=== PATIENT | female | born 1975 | race Caucasian/White ===

== ENCOUNTER 2017-06-22 22:38 | Emergency (ER) | payer OTHER, MEDICARE ==
[2017-06-22] MEDS ORDERED: BENADRYL 50 MG/ML IV ONE (22:54)
[2017-06-22] MEDS ORDERED: solu-CORTEF 100MG IV ONE (22:55)
[2017-06-22] MEDS ORDERED: MORPHINE SULFATE 4 MG INJ IM ONE (23:05)
[2017-06-22] MEDS ORDERED: Zofran 4 MG/2 ML VIAL IV ONE (23:06)
[2017-06-22] MEDS ORDERED: Zofran 4 MG/2 ML VIAL ONE (23:12)
[2017-06-22] MEDS ORDERED: BENADRYL 50 MG/ML ONE (23:12)
[2017-06-22] MEDS ORDERED: solu-CORTEF 100MG ONE (23:12)
[2017-06-22] MEDS ORDERED: MORPHINE SULFATE 4 MG INJ ONE (23:13)
--- NOTE | 2017-06-22 23:16 | ERPHSYRPT ---
- History of Present Illness Time Seen by Provider: 06/22/17 23:01 Historian: patient Exam Limitations: no limitations Patient Subjective Stated Complaint: chest pain began about 30 min [employer]IAN Triage Nursing Assessment: c/o left side chest pain with nausea, no vomiting Physician History: 42 y/o female with history of SVT with ablation and multiple PEs currently on xarelto comes to the ER with complaints of left sided chest pain that started while at rest 30 mins prior to coming to the ER. Pt describes the pain as stabbing, 8/10, constant and pt has not taken any pain meds. Pt admits to shortness of breath only with exertion. Pt denies any fever, chills, cough, dizziness or palpitations. Timing/Duration: today Activities at Onset: none Quality: stabbing Location: other (left side of chest) Chest Pain Radiation: no radiation Severity of Pain-Max: severe Severity of Pain-Current: severe Modifying Factors: Improves With: nothing Associated Symptoms: No hurts to breathe Nitro Today/Relief: no nitro taken today Aspirin Treatment Today: no aspirin today Allergies/Adverse Reactions: acetaminophen [From Percocet] Allergy (Verified 06/22/17 23:03) diazepam [From Valium] Allergy (Verified 06/22/17 23:03) hydrocodone [From [place]] Allergy (Verified 06/22/17 23:03) Iodinated Contrast- Oral and IV Dye Allergy (Verified 06/22/17 23:03) ketorolac [From Toradol] Allergy (Verified 06/22/17 23:03) oxycodone [From Percocet] Allergy (Verified 06/22/17 23:03) Sulfa (Sulfonamide Antibiotics) Allergy (Verified 06/22/17 23:03) tramadol [From Ultram] Allergy (Verified 06/22/17 23:03) Home Medications: Aripiprazole 10 mg [Abilify 10 MG] 1 tab PO QAM 06/22/17 [History] Atorvastatin Calcium 1 tab PO DAILY 06/22/17 [History] Clonidine 0.2 mg TOP WEEKLY 06/22/17 [History] Lamotrigine [Lamictal] 200 mg PO BID 06/22/17 [History] Levothyroxine Sodium 50 Mcg [Synthroid 50 Mcg] 1 tab PO DAILY 06/22/17 [ History] Rivaroxaban [Xarelto] 1 tab PO QHS 06/22/17 [History] Vortioxetine Hydrobromide [Trintellix] 1 tab PO QAM 06/22/17 [History] Hx Tetanus, Diphtheria Vaccination/Date Given: Yes Hx Influenza Vaccination/Date Given: Yes Immunizations Up to Date: Yes - Review of Systems Constitutional: No Fever, No Chills Eyes: No Symptoms Ears, Nose, & Throat: No Symptoms Respiratory: Dyspnea on Exertion (GARCIA), No Cough, No Dyspnea Cardiac: Chest Pain, No Edema, No Syncope Abdominal/Gastrointestinal: No Abdominal Pain, No Nausea, No Vomiting, No Diarrhea Genitourinary Symptoms: No Dysuria Musculoskeletal: No Back Pain, No Neck Pain Skin: No Rash Neurological: No Dizziness, No Focal Weakness, No Sensory Changes Psychological: No Symptoms Endocrine: No Symptoms All Other Systems: Reviewed and Negative - Past Medical History Pertinent Past Medical History: Yes Cardiac History: Arrhythmia, High Cholesterol Respiratory History: Pulmonary Embolism Endocrine Medical History: Hyperthyroidism, Hypothyroidism Psycho-Social History: Anxiety, Depression Other Medical History: SVT, BLOOD CLOTS, MOOD DISORDER - Past Surgical History Past Surgical History: Yes Cardiac: Other Gastrointestinal: Cholecystectomy Female Surgical History: Hysterectomy Other Surgical History: THYROID RADIATION, ABLATION X 3 - Social History Smoking Status: Never smoker Drug Use: none - Female History Hx Now: No - Nursing Vital Signs Nursing Vital Signs: Initial Vital Signs Temperature 98 F 06/22/17 22:54 Pulse Rate 76 06/22/17 22:54 Respiratory Rate 20 06/22/17 22:54 Blood Pressure 152/79 06/22/17 22:54 O2 Sat by Pulse Oximetry 99 06/22/17 22:54 Pain Scale Pain Intensity 9 - Physical Exam General Appearance: mild distress, alert Eye Exam: PERRL/EOMI, eyes nml inspection Ears, Nose, Throat Exam: normal ENT inspection, moist mucous membranes Neck Exam: normal inspection, non-tender, supple, full range of motion Respiratory Exam: normal breath sounds, lungs clear, No chest tenderness, No respiratory distress Cardiovascular Exam: regular rate/rhythm, normal heart sounds, normal peripheral pulses Gastrointestinal/Abdomen Exam: soft, No tenderness, No mass Back Exam: normal inspection, No CVA tenderness, No vertebral tenderness Extremity Exam: normal inspection, normal range of motion Neurologic Exam: alert, oriented x 3, cooperative, normal mood/affect, sensation nml, No motor deficits Skin Exam: normal color, warm, dry SpO2: 99 Oxygen Delivery: Room Air - Course Nursing assessment & vital signs reviewed: Yes EKG Interpreted by Me: RATE, NORMAL AXIS, NORMAL INTERVALS, NORMAL QRS Ordered Tests: Active Orders 24 hr Category Date Time Status Wire Walker STAT Care 06/22/17 22:54 Active IV Insertion STAT Care 06/22/17 22:53 Active CHEST WITH CONTRAST [CT] Stat Exams 06/22/17 22:53 Taken CBC W DIFF Stat Lab 06/22/17 23:20 Completed CK-Creatinine Phosphokinase Stat Lab 06/22/17 23:20 Completed CMP Stat Lab 06/22/17 23:20 Completed NT PRO BNP Stat Lab 06/22/17 23:20 Completed PROTIME WITH INR Stat Lab 06/22/17 23:20 Completed PTT Stat Lab 06/22/17 23:20 Completed TROPONIN Q3H Lab 06/22/17 23:19 Completed TROPONIN Q3H Lab 06/23/17 02:00 Ordered TROPONIN Q3H Lab 06/23/17 05:00 Ordered TROPONIN Q3H Lab 06/23/17 08:00 Ordered TROPONIN Q3H Lab 06/23/17 11:00 Ordered Medication Summary Discontinued Medications Generic Name Dose Route Start Last Admin Trade Name Freq PRN Reason Stop Dose Admin Diphenhydramine HCl 25 mg 06/22/17 22:54 06/22/17 23:16 Benadryl 50 Mg/Ml IV 06/22/17 22:55 25 mg STAT ONE Administration Diphenhydramine HCl Confirm 06/22/17 23:12 Benadryl 50 Mg/Ml Administered 06/22/17 23:13 Dose 50 mg .ROUTE .STK-MED ONE Diphenhydramine HCl 25 mg 06/23/17 00:58 06/23/17 01:05 Benadryl 50 Mg/Ml IV 06/23/17 00:59 25 mg STAT ONE Administration Diphenhydramine HCl Confirm 06/23/17 00:58 Benadryl 50 Mg/Ml Administered 06/23/17 00:59 Dose 50 mg .ROUTE .STK-MED ONE Hydrocortisone Sodium Succinate 100 mg 06/22/17 22:55 06/22/17 23:16 Solu-Cortef 100mg IV 06/22/17 22:56 100 mg STAT ONE Administration Hydrocortisone Sodium Succinate Confirm 06/22/17 23:12 Solu-Cortef 100mg Administered 06/22/17 23:13 Dose 100 mg .ROUTE .STK-MED ONE Sodium Chloride 1,000 mls @ 999 mls/hr 06/23/17 00:25 06/23/17 01:05 Sodium Chloride 0.9% 1000 Ml IV 06/23/17 01:25 999 mls/hr .Q1H1M STA Administration Sodium Chloride Confirm 06/23/17 00:34 Sodium Chloride 0.9% 1000 Ml Administered 06/23/17 00:35 Dose 1,000 mls @ ud .ROUTE .STK-MED ONE Morphine Sulfate 4 mg 06/22/17 23:05 06/22/17 23:16 Morphine Sulfate 4 Mg Inj IM 06/22/17 23:06 4 mg STAT ONE Administration Morphine Sulfate Confirm 06/22/17 23:13 Morphine Sulfate 4 Mg Inj Administered 06/22/17 23:14 Dose 4 mg .ROUTE .STK-MED ONE Ondansetron HCl 4 mg 06/22/17 23:06 06/22/17 23:16 Zofran 4 Mg/2 Ml Vial IV 06/22/17 23:07 4 mg STAT ONE Administration Ondansetron HCl Confirm 06/22/17 23:12 Zofran 4 Mg/2 Ml Vial Administered 06/22/17 23:13 Dose 4 mg .ROUTE .STK-MED ONE Lab/Rad Data: Laboratory Result Diagrams 06/22/17 23:20 06/22/17 23:20 Laboratory Results 06/22/17 06/22/17 06/22/17 Range/Units 23:20 23:20 23:20 WBC 8.7 (4.0-10.5) K/mm3 RBC 4.91 (4.1-5.4) M/mm3 Hgb 13.3 (12.0-16.0) gm/dl Hct 39.5 (35-47) % MCV 80.4 (78-100) fl MCH 27.1 (26-32) pg MCHC 33.7 (32-36) g/dl RDW 14.4 H (11.5-14.0) % Plt Count 208 (150-450) K/mm3 MPV 11.7 H (6-9.5) fl Gran % 60.3 (36.0-66.0) % Lymphocytes % 28.4 (24.0-44.0) % Monocytes % 8.6 (0.0-12.0) % Eosinophils % 2.5 (0.00-5.0) % Basophils % 0.2 (0.0-0.4) % Basophils # 0.02 (0-0.4) INR 1.06 (0.8-3.0) APTT 28.3 (25.3-37.0) SECONDS Sodium 138 (136-145) mEq/L Potassium 4.0 (3.5-5.1) mEq/L Chloride 102 (98-107) mEq/L Carbon Dioxide 22.2 (21-32) mEq/L Anion Gap 18.1 H (5-15) MEQ/L BUN 9 (9-20) mg/dL Creatinine 0.75 (0.55-1.30) mg/dl Estimated GFR > 60 ML/MIN Glucose 381 H (70-110) MG/DL Calcium 9.1 (8.5-10.1) mg/dL Total Bilirubin 0.20 (0.2-1.0) mg/dL AST 17 (15-37) U/L ALT 26 (12-78) U/L Alkaline Phosphatase 178 H (46-116) U/L Creatine Kinase 77 (26-192) U/L Troponin I (0.000-0.056) ng/ml NT-Pro-B Natriuret Pep 140 H (0-125) pg/ml Serum Total Protein 7.0 (6.4-8.2) gm/dL Albumin 3.7 (3.4-5.0) g/dL 06/22/17 Range/Units 23:19 WBC (4.0-10.5) K/mm3 RBC (4.1-5.4) M/mm3 Hgb (12.0-16.0) gm/dl Hct (35-47) % MCV (78-100) fl MCH (26-32) pg MCHC (32-36) g/dl RDW (11.5-14.0) % Plt Count (150-450) K/mm3 MPV (6-9.5) fl Gran % (36.0-66.0) % Lymphocytes % (24.0-44.0) % Monocytes % (0.0-12.0) % Eosinophils % (0.00-5.0) % Basophils % (0.0-0.4) % Basophils # (0-0.4) INR (0.8-3.0) APTT (25.3-37.0) SECONDS Sodium (136-145) mEq/L Potassium (3.5-5.1) mEq/L Chloride (98-107) mEq/L Carbon Dioxide (21-32) mEq/L Anion Gap (5-15) MEQ/L BUN (9-20) mg/dL Creatinine (0.55-1.30) mg/dl Estimated GFR ML/MIN Glucose (70-110) MG/DL Calcium (8.5-10.1) mg/dL Total Bilirubin (0.2-1.0) mg/dL AST (15-37) U/L ALT (12-78) U/L Alkaline Phosphatase (46-116) U/L Creatine Kinase (26-192) U/L Troponin I < 0.017 (0.000-0.056) ng/ml NT-Pro-B Natriuret Pep (0-125) pg/ml Serum Total Protein (6.4-8.2) gm/dL Albumin (3.4-5.0) g/dL - Progress Progress: improved Progress Note: 06/23/17 01:37 The CTA chest does not show any acute findings. The EKG and troponin are negative. The patient feels better after receiving morphine. The blood glucose was over 300 and the patient was given a liter of fluids. Pt will be d/c home and will F/U with PCP. - Departure Time of Disposition: 01:38 Departure Disposition: Home Clinical Impression: Chest pain Qualifiers: Chest pain type: unspecified Qualified Code(s): R07.9 - Chest pain, unspecified Condition: Stable Critical Care Time: No Referrals: PEDRO WEAVER MD [Primary Care Provider] - Instructions: Chest Pain (DC) Additional Instructions: Follow up with your primary care doctor for any additional recommendations for chest pain.
[2017-06-22 23:24] LABS: BASOPHIL % 0.2 % (0.0-0.4); Basophil (Absolute #) 0.02 (0-0.4); Eosinophil % 2.5 % (0.00-5.0); Eosinophil (Absolute #) 0.22 (0-0.5); Granulocyte Absolute (ANC) 5.23 (1.4-6.9); Granulocytes % 60.3 % (36.0-66.0); Hematocrit 39.5 % (35-47); Hemoglobin 13.3 gm/dl (12.0-16.0); Lymphocyte (Absolute #) 2.47 (1.0-4.6); Lymphocytes % 28.4 % (24.0-44.0); Mean Cell Volume 80.4 fl (78-100); Mean Corpuscular Hemoglobin 27.1 pg (26-32); Mean Corpuscular Hgb Concent. 33.7 g/dl (32-36); Mean Platelet Volume 11.7 fl (6-9.5); Monocyte (Absolute #) 0.75 (0.0-1.3); Monocytes % 8.6 % (0.0-12.0); Platelet Count 208 K/mm3 (150-450); Red Blood Count 4.91 M/mm3 (4.1-5.4); Red Cell Distribution Width 14.4 % (11.5-14.0); White Blood Count 8.7 K/mm3 (4.0-10.5)
[2017-06-22 23:38] LABS: INR 1.06 (0.8-3.0)
[2017-06-22 23:41] LABS: PTT 28.3 SECONDS (25.3-37.0)
[2017-06-23 00:05] LABS: ALBUMIN 3.7 g/dL (3.4-5.0); ALKALINE PHOSPHATASE 178 U/L (46-116); ANION GAP 18.1 MEQ/L (5-15); BLOOD UREA NITROGEN 9 mg/dL (9-20); CHLORIDE 102 mEq/L (98-107); CK-Creatinine Phosphokinase 77 U/L (26-192); Calcium 9.1 mg/dL (8.5-10.1); Carbon Dioxide 22.2 mEq/L (21-32); Creatinine 1 0.75 mg/dl (0.55-1.30); EST GLOMERULAR FILTRATION RATE > 60 ML/MIN; Glucose 381 MG/DL (70-110); NT PRO BNP 140 pg/ml (0-125); SGOT/AST 17 U/L (15-37); SGPT/ALT 26 U/L (12-78); SODIUM 138 mEq/L (136-145)
[2017-06-23] MEDS ORDERED: Sodium Chloride 0.9% 1000 ML 1,000 ML IV STA (00:25)
[2017-06-23] MEDS ORDERED: Sodium Chloride 0.9% 1000 ML 1,000 ML ONE (00:34)
[2017-06-23] MEDS ORDERED: BENADRYL 50 MG/ML ONE (00:58)
[2017-06-23] MEDS ORDERED: BENADRYL 50 MG/ML IV ONE (00:58)
[2017-06-23 01:06] VITALS: BP 137/87
[2017-06-23 01:43] VITALS: PULSE 62; O2SAT 96
--- NOTE | 2017-06-23 08:17 | XRAY ---
Indication: Left-sided chest pain and short of breath. History pulmonary embolus. Multiple contiguous axial images obtained through the chest using 80 cc Isovue 370 contrast and PE protocol. Comparison: None There is satisfactory opacification of the pulmonary arteries to include the lobar and segmental branches. No filling defect or pulmonary embolus. Heart is not enlarged. Aorta is normal in course and caliber. No pathologic mediastinal/hilar lymphadenopathy. Examination of the lung parenchyma demonstrates minimal bilateral dependent atelectasis. No suspicious pulmonary mass, infiltrate, or effusion. Bony thorax intact. Limited upper abdomen demonstrates mild fatty liver, food distended stomach, and cholecystectomy clips. Impression: 1. Negative pulmonary embolus. 2. No acute cardiopulmonary abnormalities. 3. Mild fatty liver. Comment: Preliminary interpretation was made by [facility]. No critical discrepancy. CTDI 23.69
== END 2017-06-23 01:59 | disposition home or self-care (01) ==
LOC: SUPCPDRO 22:38 → ED 22:38
DX: R07.9 Chest pain, unspecified (principal); Z79.01 Long term (current) use of anticoagulants; R06.02 Shortness of breath
CPT/HCPCS: 36000; 36415; 71260; 80053; 82550; 83880; 84484; 85025; 85610; 85730; 93041; 96360; 96365; 96374; 96375; 96376; 99284; J1200; J1720; J2270; J2405

== ENCOUNTER 2017-06-24 21:17 | Emergency (ER) | payer OTHER, MEDICARE ==
[2017-06-24] MEDS ORDERED: Zofran 4 MG/2 ML VIAL IV ONE (21:37)
[2017-06-24] MEDS ORDERED: MORPHINE SULFATE 4 MG INJ IV ONE ×2 (21:37→23:03)
[2017-06-24] MEDS ORDERED: Sodium Chloride 0.9% 1000 ML 1,000 ML IV STA ×2 (21:37→22:31)
[2017-06-24] MEDS ORDERED: Sodium Chloride 0.9% 1000 ML 1,000 ML ONE ×2 (21:41→22:56)
[2017-06-24] MEDS ORDERED: Zofran 4 MG/2 ML VIAL ONE (21:43)
--- NOTE | 2017-06-24 21:43 | ERPHSYRPT ---
- History of Present Illness Time Seen by Provider: 06/24/17 21:30 Source: patient Exam Limitations: no limitations Patient Subjective Stated Complaint: pt states she was feeling bad tonight and checked her blood sugar and was 520 at home. states since then she has been nauseous and began having chest pain 12/07 Triage Nursing Assessment: pt alert and oriented, asnwers questions approp. pt ambulatory with steady gait ntoed. respirations nonalbored with lungs cta. heart rate 70's sinus rhythm on monitor. Physician History: 42 y/o female with history of PE on xarelto and DM Type II comes to the ER after checking her blood glucose which was 520. The patient also started having left sided chest pain, describing the pain as sharp, constant, 12/07, and pt has not taken any pain meds. Pt was seen in the ER for similar chest pain and had a negative chest CT. pt has not had any changes to her insulin regimen. Pt does admit to having polyuria and polydypsia. No fever, chills, cough, congestion or wheezing. Timing/Duration: today Severity: moderate Associated Symptoms: nausea Allergies/Adverse Reactions: acetaminophen [From Percocet] Allergy (Verified 06/24/17 21:53) diazepam [From Valium] Allergy (Verified 06/24/17 21:53) hydrocodone [From [place]] Allergy (Verified 06/24/17 21:53) Iodinated Contrast- Oral and IV Dye Allergy (Verified 06/24/17 21:53) ketorolac [From Toradol] Allergy (Verified 06/24/17 21:53) oxycodone [From Percocet] Allergy (Verified 06/24/17 21:53) Sulfa (Sulfonamide Antibiotics) Allergy (Verified 06/24/17 21:53) tramadol [From Ultram] Allergy (Verified 06/24/17 21:53) Home Medications: Aripiprazole 10 mg [Abilify 10 MG] 1 tab PO QAM 06/22/17 [History] Atorvastatin Calcium 1 tab PO DAILY 06/22/17 [History] Clonidine 0.2 mg TOP WEEKLY 06/22/17 [History] Lamotrigine [Lamictal] 200 mg PO BID 06/22/17 [History] Levothyroxine Sodium 50 Mcg [Synthroid 50 Mcg] 1 tab PO DAILY 06/22/17 [ History] Rivaroxaban [Xarelto] 1 tab PO QHS 06/22/17 [History] Vortioxetine Hydrobromide [Trintellix] 1 tab PO QAM 06/22/17 [History] Hx Tetanus, Diphtheria Vaccination/Date Given: Yes Hx Influenza Vaccination/Date Given: Yes Hx Pneumococcal Vaccination/Date Given: No Immunizations Up to Date: Yes - Review of Systems Constitutional: Weakness, No Fever, No Chills Eyes: No Symptoms Ears, Nose, & Throat: No Symptoms Respiratory: No Cough, No Dyspnea Cardiac: Chest Pain, No Edema, No Syncope Abdominal/Gastrointestinal: No Abdominal Pain, No Nausea, No Vomiting, No Diarrhea Genitourinary Symptoms: Frequency, No Dysuria Musculoskeletal: No Back Pain, No Neck Pain Skin: No Rash Neurological: No Dizziness, No Focal Weakness, No Sensory Changes Psychological: No Symptoms Endocrine: No Symptoms All Other Systems: Reviewed and Negative - Past Medical History Pertinent Past Medical History: Yes Cardiac History: Arrhythmia, High Cholesterol Respiratory History: Pulmonary Embolism Endocrine Medical History: Hyperthyroidism, Hypothyroidism Psycho-Social History: Anxiety, Depression Other Medical History: SVT, BLOOD CLOTS, MOOD DISORDER - Past Surgical History Past Surgical History: Yes Cardiac: Other Gastrointestinal: Cholecystectomy Female Surgical History: Hysterectomy Other Surgical History: THYROID RADIATION, ABLATION X 3 - Social History Smoking Status: Never smoker Exposure to second hand smoke: No Drug Use: none Patient Lives Alone: No - Female History Hx Last Menstrual Period: hyster Hx Now: No - Nursing Vital Signs Nursing Vital Signs: Initial Vital Signs Temperature 97.2 F 06/24/17 21:26 Pulse Rate 63 06/24/17 21:26 Respiratory Rate 18 06/24/17 21:26 Blood Pressure 193/83 06/24/17 21:26 O2 Sat by Pulse Oximetry 100 06/24/17 21:26 Pain Scale Pain Intensity 8 - Physical Exam General Appearance: no apparent distress, alert Eye Exam: PERRL/EOMI, eyes nml inspection Ears, Nose, Throat Exam: normal ENT inspection, TMs normal, pharynx normal, moist mucous membranes Neck Exam: normal inspection, non-tender, supple, full range of motion Respiratory Exam: normal breath sounds, lungs clear, No chest tenderness, No respiratory distress Cardiovascular Exam: regular rate/rhythm, normal heart sounds, normal peripheral pulses Gastrointestinal/Abdomen Exam: soft, normal bowel sounds, No tenderness, No mass Back Exam: normal inspection, normal range of motion, No CVA tenderness, No vertebral tenderness Extremity Exam: normal inspection, normal range of motion, pelvis stable Neurologic Exam: alert, oriented x 3, cooperative, normal mood/affect, nml cerebellar function, nml station & gait, sensation nml, No motor deficits Skin Exam: normal color, warm, dry, No rash Lymphatic Exam: No adenopathy SpO2: 100 Oxygen Delivery: Room Air - Course Nursing assessment & vital signs reviewed: Yes EKG Interpreted by Me: RATE, NORMAL AXIS, NORMAL INTERVALS, NORMAL QRS, NORMAL ST-T Ordered Tests: Active Orders 24 hr Category Date Time Status IV Insertion STAT Care 06/24/17 21:37 Active CBC W DIFF Stat Lab 06/24/17 21:48 Completed CK-Creatinine Phosphokinase Stat Lab 06/24/17 21:48 Completed CMP Stat Lab 06/24/17 21:48 Completed TROPONIN Q3H Lab 06/24/17 21:48 Completed TROPONIN Q3H Lab 06/25/17 00:45 Ordered TROPONIN Q3H Lab 06/25/17 03:45 Ordered TROPONIN Q3H Lab 06/25/17 06:45 Ordered TROPONIN Q3H Lab 06/25/17 09:45 Ordered UA W/ MICROSCOPIC Stat Lab 06/24/17 22:47 Completed VBG [VENOUS BLOOD GAS] Stat Lab 06/24/17 21:43 Completed Medication Summary Discontinued Medications Generic Name Dose Route Start Last Admin Trade Name Freq PRN Reason Stop Dose Admin Diphenhydramine HCl 25 mg 06/24/17 23:34 06/24/17 23:38 Benadryl 50 Mg/Ml IV 06/24/17 23:35 25 mg STAT ONE Administration Diphenhydramine HCl Confirm 06/24/17 23:36 Benadryl 50 Mg/Ml Administered 06/24/17 23:37 Dose 50 mg .ROUTE .STK-MED ONE Sodium Chloride 1,000 mls @ 999 mls/hr 06/24/17 21:37 06/24/17 21:41 Sodium Chloride 0.9% 1000 Ml IV 06/24/17 22:37 999 mls/hr .Q1H1M STA Administration Sodium Chloride Confirm 06/24/17 21:41 Sodium Chloride 0.9% 1000 Ml Administered 06/24/17 21:42 Dose 1,000 mls @ ud .ROUTE .STK-MED ONE Sodium Chloride 1,000 mls @ 999 mls/hr 06/24/17 22:31 06/24/17 22:57 Sodium Chloride 0.9% 1000 Ml IV 06/24/17 23:31 999 mls/hr .Q1H1M STA Administration Sodium Chloride Confirm 06/24/17 22:56 Sodium Chloride 0.9% 1000 Ml Administered 06/24/17 22:57 Dose 1,000 mls @ ud .ROUTE .STK-MED ONE Insulin Human Regular 8 unit 06/24/17 22:31 06/24/17 22:57 Novolin R IV 06/24/17 22:32 8 unit STAT ONE Administration Insulin Human Regular Confirm 06/24/17 22:56 Novolin R Administered 06/24/17 22:57 Dose 8 unit .ROUTE .STK-MED ONE Morphine Sulfate 4 mg 06/24/17 21:37 06/24/17 21:45 Morphine Sulfate 4 Mg Inj IV 06/24/17 21:38 4 mg STAT ONE Administration Morphine Sulfate Confirm 06/24/17 21:44 Morphine Sulfate 4 Mg Inj Administered 06/24/17 21:45 Dose 4 mg .ROUTE .STK-MED ONE Morphine Sulfate 4 mg 06/24/17 23:03 06/24/17 23:05 Morphine Sulfate 4 Mg Inj IV 06/24/17 23:04 4 mg STAT ONE Administration Morphine Sulfate Confirm 06/24/17 23:04 Morphine Sulfate 4 Mg Inj Administered 06/24/17 23:05 Dose 4 mg .ROUTE .STK-MED ONE Ondansetron HCl 4 mg 06/24/17 21:37 06/24/17 21:46 Zofran 4 Mg/2 Ml Vial IV 06/24/17 21:38 4 mg STAT ONE Administration Ondansetron HCl Confirm 06/24/17 21:43 Zofran 4 Mg/2 Ml Vial Administered 06/24/17 21:44 Dose 4 mg .ROUTE .STK-MED ONE Lab/Rad Data: Laboratory Result Diagrams 06/24/17 21:48 06/24/17 21:48 Laboratory Results 02/25/18 02/25/18 02/25/18 Range/Units 22:47 21:48 21:48 WBC (4.0-10.5) K/mm3 RBC (4.1-5.4) M/mm3 Hgb (12.0-16.0) gm/dl Hct (35-47) % MCV (78-100) fl MCH (26-32) pg MCHC (32-36) g/dl RDW (11.5-14.0) % Plt Count (150-450) K/mm3 MPV (6-9.5) fl Gran % (36.0-66.0) % Lymphocytes % (24.0-44.0) % Monocytes % (0.0-12.0) % Eosinophils % (0.00-5.0) % Basophils % (0.0-0.4) % Basophils # (0-0.4) VBG pH (7.32-7.42) VBG pCO2 at Pat Temp (42-55) mm/Hg VBG pO2 at Pat Temp (25-40) mm/Hg VBG HCO3 (22-28) meq/L VBG O2 Sat (Mike) (95-100) VBG Base Excess (-2.0-2.0) VBG Hemoglobin VBG Carboxyhemoglobin (0.0-6.9) % T HGB POC Potassium (3.5-5.1) Sodium 138 (136-145) mEq/L Potassium 4.1 (3.5-5.1) mEq/L Chloride 99 (98-107) mEq/L Carbon Dioxide 26.3 (21-32) mEq/L Anion Gap 17.2 H (5-15) MEQ/L BUN 9 (9-20) mg/dL Creatinine 0.81 (0.55-1.30) mg/dl Estimated GFR > 60 ML/MIN Glucose 469 H (70-110) MG/DL Calcium 9.2 (8.5-10.1) mg/dL Total Bilirubin 0.20 (0.2-1.0) mg/dL AST 16 (15-37) U/L ALT 32 (12-78) U/L Alkaline Phosphatase 204 H (46-116) U/L Creatine Kinase 82 (26-192) U/L Troponin I < 0.017 (0.000-0.056) ng/ml Serum Total Protein 7.5 (6.4-8.2) gm/dL Albumin 4.2 (3.4-5.0) g/dL Ur Collection Type VOID Urine Color LT.YELLOW (YELLOW) Urine Appearance CLEAR (CLEAR) Urine pH 7.0 (5-6) Ur Specific [place] 1.010 (1.005-1.025) Urine Protein NEGATIVE (Negative) Urine Ketones NEGATIVE (NEGATIVE) Urine Blood TRACE NON-HEM (0-5) Robby/ul Urine Nitrite NEGATIVE (NEGATIVE) Urine Bilirubin NEGATIVE (NEGATIVE) Urine Urobilinogen NORMAL (0-1) mg/dL Ur Leukocyte Esterase NEGATIVE (NEGATIVE) Urine Microscopic RBC 0-2 (0-2) /HPF Urine Microscopic WBC 0-2 (0-5) /HPF Ur Epithelial Cells FEW (FEW) /HPF Urine Bacteria FEW (NEGATIVE) /HPF Urine Culture Reflexed NO (NO) Urine Glucose 1000 (NEGATIVE) mg/dL Specimen Received 06/24/17 2300 06/24/17 06/24/17 Range/Units 21:48 21:43 WBC 8.5 (4.0-10.5) K/mm3 RBC 5.13 (4.1-5.4) M/mm3 Hgb 13.9 (12.0-16.0) gm/dl Hct 41.8 (35-47) % MCV 81.5 (78-100) fl MCH 27.1 (26-32) pg MCHC 33.3 (32-36) g/dl RDW 14.3 H (11.5-14.0) % Plt Count 194 (150-450) K/mm3 MPV 12.0 H (6-9.5) fl Gran % 57.9 (36.0-66.0) % Lymphocytes % 31.1 (24.0-44.0) % Monocytes % 8.8 (0.0-12.0) % Eosinophils % 2.0 (0.00-5.0) % Basophils % 0.2 (0.0-0.4) % Basophils # 0.02 (0-0.4) VBG pH 7.36 (7.32-7.42) VBG pCO2 at Pat Temp 48 (42-55) mm/Hg VBG pO2 at Pat Temp 25 (25-40) mm/Hg VBG HCO3 27.1 (22-28) meq/L VBG O2 Sat (Mike) 54.3 L (95-100) VBG Base Excess 0.9 (-2.0-2.0) VBG Hemoglobin 14.7 VBG Carboxyhemoglobin 2.4 (0.0-6.9) % T HGB POC Potassium 4.1 (3.5-5.1) Sodium (136-145) mEq/L Potassium (3.5-5.1) mEq/L Chloride (98-107) mEq/L Carbon Dioxide (21-32) mEq/L Anion Gap (5-15) MEQ/L BUN (9-20) mg/dL Creatinine (0.55-1.30) mg/dl Estimated GFR ML/MIN Glucose (70-110) MG/DL Calcium (8.5-10.1) mg/dL Total Bilirubin (0.2-1.0) mg/dL AST (15-37) U/L ALT (12-78) U/L Alkaline Phosphatase (46-116) U/L Creatine Kinase (26-192) U/L Troponin I (0.000-0.056) ng/ml Serum Total Protein (6.4-8.2) gm/dL Albumin (3.4-5.0) g/dL Ur Collection Type Urine Color (YELLOW) Urine Appearance (CLEAR) Urine pH (5-6) Ur Specific [place] (1.005-1.025) Urine Protein (Negative) Urine Ketones (NEGATIVE) Urine Blood (0-5) Robby/ul Urine Nitrite (NEGATIVE) Urine Bilirubin (NEGATIVE) Urine Urobilinogen (0-1) mg/dL Ur Leukocyte Esterase (NEGATIVE) Urine Microscopic RBC (0-2) /HPF Urine Microscopic WBC (0-5) /HPF Ur Epithelial Cells (FEW) /HPF Urine Bacteria (NEGATIVE) /HPF Urine Culture Reflexed (NO) Urine Glucose (NEGATIVE) mg/dL Specimen Received - Progress Progress: improved Progress Note: 06/24/17 23:44 Pt has a blood glucose of 492 and was given 2 liters of NS fluids as well as 8 units of regular insulin. The patient is not in DKA and the repeat FS is 242. Pt will be d/c home with advise to F/U with PCP - Departure Time of Disposition: 23:45 Departure Disposition: Home Clinical Impression: Hyperglycemia due to type 2 diabetes mellitus Qualifiers: Diabetes mellitus keno terminal operator insulin use: with keno terminal operator use Qualified Code(s): E11.65 - Type 2 diabetes mellitus with hyperglycemia; Z79.4 - [facility] (current ) use of insulin; Z79.4 - keno terminal operator (current) use of insulin; Z79.4 - [facility] (current) use of insulin; Z79.4 - [facility] (current) use of insulin Condition: Stable Critical Care Time: No Referrals: PEDRO WEAVER MD [Primary Care Provider] - Instructions: Hyperglycemia, Adult (DC) Additional Instructions: Follow up with your primary care doctor in the next few days for any additional recommendations.
[2017-06-24] MEDS ORDERED: MORPHINE SULFATE 4 MG INJ ONE ×2 (21:44→23:04)
[2017-06-24 21:48] LABS: VBG BASE EXCESS 0.9 (-2.0-2.0); VBG CARBOXYHEMOGLOBIN 2.4 % T HGB (0.0-6.9); VBG HCO3- 27.1 meq/L (22-28); VBG HEMOGLOBIN 14.7; VBG O2 SATURATION 54.3 (95-100); VBG POTASSIUM 4.1 (3.5-5.1); VBG pH 7.36 (7.32-7.42)
[2017-06-24 21:53] LABS: BASOPHIL % 0.2 % (0.0-0.4); Basophil (Absolute #) 0.02 (0-0.4); Eosinophil (Absolute #) 0.17 (0-0.5); Granulocytes % 57.9 % (36.0-66.0); Hematocrit 41.8 % (35-47); Hemoglobin 13.9 gm/dl (12.0-16.0); Lymphocyte (Absolute #) 2.64 (1.0-4.6); Lymphocytes % 31.1 % (24.0-44.0); Mean Cell Volume 81.5 fl (78-100); Mean Corpuscular Hemoglobin 27.1 pg (26-32); Mean Corpuscular Hgb Concent. 33.3 g/dl (32-36); Monocyte (Absolute #) 0.75 (0.0-1.3); Monocytes % 8.8 % (0.0-12.0); Platelet Count 194 K/mm3 (150-450); Red Blood Count 5.13 M/mm3 (4.1-5.4); Red Cell Distribution Width 14.3 % (11.5-14.0); White Blood Count 8.5 K/mm3 (4.0-10.5)
[2017-06-24 22:20] LABS: ALBUMIN 4.2 g/dL (3.4-5.0); ALKALINE PHOSPHATASE 204 U/L (46-116); ANION GAP 17.2 MEQ/L (5-15); BLOOD UREA NITROGEN 9 mg/dL (9-20); CHLORIDE 99 mEq/L (98-107); CK-Creatinine Phosphokinase 82 U/L (26-192); Calcium 9.2 mg/dL (8.5-10.1); Carbon Dioxide 26.3 mEq/L (21-32); Creatinine 1 0.81 mg/dl (0.55-1.30); Glucose 469 MG/DL (70-110); Potassium 4.1 mEq/L (3.5-5.1); SGOT/AST 16 U/L (15-37); SGPT/ALT 32 U/L (12-78); SODIUM 138 mEq/L (136-145); Total Protein 7.5 gm/dL (6.4-8.2)
[2017-06-24] MEDS ORDERED: NovoLIN R IV ONE (22:31)
[2017-06-24] MEDS ORDERED: NovoLIN R ONE (22:56)
[2017-06-24 23:27] LABS: Appearance CLEAR (CLEAR); Bilirubin NEGATIVE (NEGATIVE); Blood TRACE NON-HEM Ery/ul (0-5); Glucose 1000 mg/dL (NEGATIVE); Ketones NEGATIVE (NEGATIVE); Leukocyte Esterase NEGATIVE (NEGATIVE); Nitrite NEGATIVE (NEGATIVE); Protein,Urine Dip NEGATIVE (Negative); Urobilinogen NORMAL mg/dL (0-1)
[2017-06-24 23:28] LABS: Bacteria FEW /HPF (NEGATIVE); Epithelial Cells FEW /HPF (FEW); WBC 0-2 /HPF (0-5)
[2017-06-24] MEDS ORDERED: BENADRYL 50 MG/ML IV ONE (23:34)
[2017-06-24] MEDS ORDERED: BENADRYL 50 MG/ML ONE (23:36)
[2017-06-24 23:58] VITALS: BP 128/63; PULSE 60; O2SAT 98
== END 2017-06-25 00:05 | disposition home or self-care (01) ==
LOC: ED 21:17
DX: E11.65 Type 2 diabetes mellitus with hyperglycemia (principal); Z79.4 Long term (current) use of insulin; R07.9 Chest pain, unspecified; Z79.899 Other long term (current) drug therapy; Z86.711 Personal history of pulmonary embolism; Z79.01 Long term (current) use of anticoagulants; R35.8 Other polyuria; R63.1 Polydipsia
CPT/HCPCS: 36000; 36415; 80053; 81000; 82550; 82805; 82962; 84484; 85025; 93005; 96360; 96361; 96374; 96375; 96376; 99284; J1200; J2270; J2405; A9270-GY

== ENCOUNTER 2017-07-06 20:35 | Observation (INO) | payer MEDICARE ==
[2017-07-06] MEDS ORDERED: BABY ASPIRIN 81 MG CHEW PO ONE (21:25)
[2017-07-06] MEDS ORDERED: Nitrostat 0.4 MG (ED) SL ONE ×4 (21:25→23:59)
[2017-07-06] MEDS ORDERED: Sodium Chloride 0.9% 1000 ML 1,000 ML IV STA (21:25)
[2017-07-06] MEDS ORDERED: BABY ASPIRIN 81 MG CHEW ONE (21:33)
[2017-07-06] MEDS ORDERED: Sodium Chloride 0.9% 1000 ML 1,000 ML ONE (21:34)
[2017-07-06 21:35] LABS: BASOPHIL % 0.2 % (0.0-0.4); Basophil (Absolute #) 0.02 (0-0.4); Eosinophil % 1.5 % (0.00-5.0); Eosinophil (Absolute #) 0.16 (0-0.5); Granulocyte Absolute (ANC) 7.14 (1.4-6.9); Granulocytes % 66.6 % (36.0-66.0); Hematocrit 42.2 % (35-47); Hemoglobin 14.1 gm/dl (12.0-16.0); Lymphocyte (Absolute #) 2.64 (1.0-4.6); Lymphocytes % 24.6 % (24.0-44.0); Mean Cell Volume 79.9 fl (78-100); Mean Corpuscular Hemoglobin 26.7 pg (26-32); Mean Corpuscular Hgb Concent. 33.4 g/dl (32-36); Mean Platelet Volume 12.2 fl (6-9.5); Monocyte (Absolute #) 0.76 (0.0-1.3); Monocytes % 7.1 % (0.0-12.0); Platelet Count 236 K/mm3 (150-450); Red Blood Count 5.28 M/mm3 (4.1-5.4); Red Cell Distribution Width 14.3 % (11.5-14.0); White Blood Count 10.7 K/mm3 (4.0-10.5)
[2017-07-06 22:10] LABS: INR 1.02 (0.8-3.0)
[2017-07-06 22:16] LABS: ALBUMIN 4.7 g/dl (3.5-5.0); ALKALINE PHOSPHATASE 189 U/L (38-126); ANION GAP 22.2 MEQ/L (5-15); BLOOD UREA NITROGEN 8 mg/dl (7-17); CHLORIDE 96 mEq/L (98-107); Calcium 9.6 mg/dL (8.4-10.2); Carbon Dioxide 22 mmol/L (22-30); Creatinine 1 0.54 mg/dl (0.52-1.04); Glucose 459 mg/dL (74-106); Potassium 4.4 mmol/L (3.5-5.1); SGOT/AST 48 U/L (14-36); SGPT/ALT 37 U/L (0-35); SODIUM 135 mmol/L (137-145); Total Protein 7.8 mg/dl (6.3-8.2)
[2017-07-06 22:18] LABS: D-DIMER QUANTITATION < 215 ng/mL (0-500)
[2017-07-06 22:25] LABS: NT PRO BNP 53.9 pg/ml (0-450)
[2017-07-06 22:27] LABS: Appearance CLEAR (CLEAR); Bilirubin NEGATIVE (NEGATIVE); Blood NEGATIVE Ery/ul (0-5); Glucose 250 mg/dL (NEGATIVE); Ketones NEGATIVE (NEGATIVE); Leukocyte Esterase NEGATIVE (NEGATIVE); Nitrite NEGATIVE (NEGATIVE); Protein,Urine Dip NEGATIVE (Negative); Urobilinogen NORMAL mg/dL (0-1)
[2017-07-06] MEDS ORDERED: Zofran 4 MG/2 ML VIAL IV ONE (22:54)
[2017-07-06] MEDS ORDERED: Zofran 4 MG/2 ML VIAL ONE (23:01)
--- NOTE | 2017-07-06 23:53 | XRAY ---
Indication: Chest pain. Comparison: None PA/lateral chest demonstrates normal heart and lungs. Bony thorax intact with minimal scoliosis.
[2017-07-06] MEDS ORDERED: MORPHINE SULFATE 4 MG INJ IV ONE (23:59)
[2017-07-06] MEDS ORDERED: NITRO-BID 2% UD PACKETS TOP ONE (23:59)
[2017-07-07] MEDS ORDERED: MORPHINE SULFATE 4 MG INJ ONE (00:16)
[2017-07-07] MEDS ORDERED: NITRO-BID 2% UD PACKETS ONE (00:16)
--- NOTE | 2017-07-07 00:26 | ERPHSYRPT ---
- History of Present Illness Time Seen by Provider: 07/06/17 22:00 Historian: patient Exam Limitations: clinical condition Patient Subjective Stated Complaint: Hyperglycemia x1 week, worse today. Also complains of chest pain beginning 1 hour ago. Triage Nursing Assessment: Pt presents to the ED with complaints of hyperglycemia x1 week. Pt states she has had complications with hyperglycemia x1 month, with improvement prior to 1 week ago. Pt states her meter read 580 prior to dinner time. Pt states reading just prior to arrival was "High." No distress noted. Skin PWD. Physician History: PATIENT HISTORY OF CORONARY ARTERY DISEASE, NORMAL CARDIAC CATHERIZATION 1 YEAR AGO, TYPE 2 DIABETES, HISTORY OR PULMONARY EMBOLISM COMPLAINS OF INTERMITTENT CHEST PAINS X 3 DAYS. HAS ASSOCIATED ELEVATED BLOOD GLUCOSE IN THE 400'S FOR THE PAST WEEK. HAS OCCASIONAL RADIATION OF PAIN TO HER BACK, DENIES DYSPNEA, DIAPHORESIS OR PALPITATIONS. Timing/Duration: today Activities at Onset: none Quality: sharpness, stabbing Location: central Chest Pain Radiation: back Severity of Pain-Max: moderate Severity of Pain-Current: mild Modifying Factors: Improves With: nothing, other (ELEVATED BLOOD GLUCOSE) Associated Symptoms: nausea Prior Chest Pain/Cardiac Workup: cardiac cath Nitro Today/Relief: no nitro taken today Aspirin Treatment Today: no aspirin today Allergies/Adverse Reactions: acetaminophen [From Percocet] Allergy (Verified 06/24/17 21:53) diazepam [From Valium] Allergy (Verified 06/24/17 21:53) hydrocodone [From [place]] Allergy (Verified 06/24/17 21:53) Iodinated Contrast- Oral and IV Dye Allergy (Verified 06/24/17 21:53) ketorolac [From Toradol] Allergy (Verified 06/24/17 21:53) oxycodone [From Percocet] Allergy (Verified 06/24/17 21:53) Sulfa (Sulfonamide Antibiotics) Allergy (Verified 06/24/17 21:53) tramadol [From Ultram] Allergy (Verified 06/24/17 21:53) Home Medications: Aripiprazole 10 mg [Abilify 10 MG] 1 tab PO QAM 06/22/17 [History] Atorvastatin Calcium 1 tab PO DAILY 06/22/17 [History] Clonidine 0.2 mg TOP WEEKLY 06/22/17 [History] Lamotrigine [Lamictal] 200 mg PO BID 06/22/17 [History] Levothyroxine Sodium 50 Mcg [Synthroid 50 Mcg] 1 tab PO DAILY 06/22/17 [ History] Rivaroxaban [Xarelto] 1 tab PO QHS 06/22/17 [History] Vortioxetine Hydrobromide [Trintellix] 1 tab PO QAM 06/22/17 [History] Hx Tetanus, Diphtheria Vaccination/Date Given: Yes Hx Influenza Vaccination/Date Given: Yes Hx Pneumococcal Vaccination/Date Given: Yes Immunizations Up to Date: Yes - Review of Systems Constitutional: No Symptoms, No Fever, No Chills Eyes: No Symptoms Ears, Nose, & Throat: No Symptoms Respiratory: No Cough, No Dyspnea Cardiac: Chest Pain, No Edema, No Syncope Abdominal/Gastrointestinal: Nausea, No Abdominal Pain, No Vomiting, No Diarrhea Genitourinary Symptoms: No Symptoms, No Dysuria Musculoskeletal: No Symptoms, No Back Pain, No Neck Pain Skin: No Rash Neurological: No Dizziness, No Focal Weakness, No Sensory Changes Psychological: No Symptoms Endocrine: No Symptoms All Other Systems: Reviewed and Negative - Past Medical History Pertinent Past Medical History: Yes Cardiac History: Arrhythmia, High Cholesterol Respiratory History: Pulmonary Embolism Endocrine Medical History: Hyperthyroidism, Hypothyroidism Psycho-Social History: Anxiety, Depression Other Medical History: SVT, BLOOD CLOTS, MOOD DISORDER - Past Surgical History Past Surgical History: Yes Cardiac: Other Gastrointestinal: Cholecystectomy Female Surgical History: Hysterectomy Other Surgical History: THYROID RADIATION, ABLATION X 3 - Social History Smoking Status: Never smoker Exposure to second hand smoke: No Drug Use: none Patient Lives Alone: No - Female History Hx Now: No - Nursing Vital Signs Nursing Vital Signs: Initial Vital Signs Temperature 98.1 F 07/06/17 20:57 Pulse Rate 84 07/06/17 20:57 Respiratory Rate 16 07/06/17 20:57 Blood Pressure 166/94 07/06/17 20:57 O2 Sat by Pulse Oximetry 100 07/06/17 20:57 Pain Scale Pain Intensity 6 - Physical Exam General Appearance: no apparent distress, alert Eye Exam: PERRL/EOMI, eyes nml inspection Ears, Nose, Throat Exam: normal ENT inspection, moist mucous membranes Neck Exam: normal inspection, non-tender, supple, full range of motion Respiratory Exam: normal breath sounds, lungs clear, No respiratory distress Cardiovascular Exam: regular rate/rhythm, normal heart sounds Gastrointestinal/Abdomen Exam: soft, normal bowel sounds (NONTENDER), No tenderness, No mass Back Exam: normal inspection, No CVA tenderness, No vertebral tenderness Extremity Exam: normal inspection, normal range of motion Neurologic Exam: alert, oriented x 3, cooperative, normal mood/affect, sensation nml, No motor deficits Skin Exam: normal color, warm, dry SpO2 Interpretation: normal SpO2: 100 Oxygen Delivery: Room Air - Course EKG Interpreted by Me: RATE, Sinus Rhythm, NORMAL AXIS, Other (FLAT LATERAL ST SEGMENT CHANGES) - Radiology Exams Chest X-ray Interpretation: Interpreted by me, Negative Ordered Tests: Active Orders 24 hr Category Date Time Status Up With Assistance ROUTINE Activity 07/07/17 01:08 Active Accucheck ACHS Care 07/07/17 01:08 Active Call Admit Doctor for Orders ROUTINE Care 07/07/17 01:08 Active Drier Helper STAT Care 07/06/17 21:25 Active Code Status Order ROUTINE Care 07/07/17 01:08 Active EKG-ER Only STAT Care 07/06/17 21:25 Completed IV Care Q6H Care 07/07/17 01:08 Active IV Insertion STAT Care 07/06/17 21:25 Completed Implement Chest Pain Pathway ROUTINE Care 07/07/17 01:08 Active Oxygen-ED Only NASAL CANNULA 2 lpm Care 07/06/17 21:[address] in Observation ROUTINE Care 07/07/17 01:08 Active Pulse Oximetry (ED) STAT Care 07/06/17 21:25 Active Nancy Delarosa ROUTINE Care 07/07/17 01:08 Active Telemetry ROUTINE Care 07/07/17 01:08 Active Vital Signs Q4H Care 07/07/17 01:08 Active Weight,Daily 0600 Care 07/07/17 01:08 Active 1800 Calorie ADA Diet 07/07/17 Breakfast Active Cardiac Diet Diet 07/07/17 Breakfast Active CHEST 2 VIEWS (PA AND LAT) Stat Exams 07/06/17 21:25 Completed CBC W DIFF Stat Lab 07/06/17 21:30 Completed CMP Stat Lab 07/06/17 21:30 Completed D-DIMER QUANTITATION Stat Lab 07/06/17 21:30 Completed LIPID PROFILE AM.LAB Lab 07/07/17 04:00 Ordered NT PRO BNP Stat Lab 07/06/17 21:30 Completed PROTIME WITH INR Stat Lab 07/06/17 21:30 Completed TROPONIN Q3H Lab 07/06/17 21:30 Completed TROPONIN Q3H Lab 07/07/17 00:47 Completed TROPONIN Q3H Lab 07/07/17 03:30 Ordered TROPONIN Q3H Lab 07/07/17 06:30 Ordered TROPONIN Q3H Lab 07/07/17 09:30 Ordered UA W/RFX UR CULTURE Stat Lab 07/06/17 21:27 Completed Pulse Oximetry .continuos RT 07/07/17 01:08 Completed Transfer Order Routine Transfer 07/07/17 Completed Medication Summary Generic Name Dose Route Start Last Admin Trade Name Freq PRN Reason Stop Dose Admin Acetaminophen 650 mg 07/07/17 01:08 Tylenol 325 Mg PO 08/06/17 01:07 Q4H PRN PRN PAIN AND/OR FEVER Al Hydrox/Mg Hydrox/Simethicone 30 ml 07/07/17 01:08 Maalox Es 30 Ml Unit Dose PO 08/06/17 01:07 Q4H PRN PRN INDIGESTION Aripiprazole 10 mg 07/07/17 22:00 Abilify 10 Mg PO 08/06/17 21:59 HS HARINDER Aspirin 325 mg 07/07/17 10:00 Ecotrin 325 Mg PO 08/06/17 09:59 DAILY HARINDER Sodium Chloride 500 mls @ 50 mls/hr 07/07/17 01:08 07/07/17 01:32 Sodium Chloride 0.9% 500 Ml IV 08/06/17 01:07 50 mls/hr .Q10H HARINDER Administration Insulin Aspart 0 unit 07/07/17 01:08 Novolog Insulin SQ 08/06/17 01:07 PRN PRN HYPERGLYCEMIA Lamotrigine 200 mg 07/07/17 10:00 Lamictal 100mg Tablet PO 08/06/17 09:59 BID HARINDER Levothyroxine Sodium 50 mcg 07/07/17 10:00 Synthroid 50 Mcg PO 08/06/17 09:59 QAM HARINDER Magnesium Hydroxide 30 - 60 ml 07/07/17 01:08 Milk Of Magnesia 30 Ml PO 08/06/17 01:07 QDP PRN CONSTIPATION Morphine Sulfate 2 mg 07/07/17 01:08 Morphine Sulfate 2 Mg Inj IV 07/12/17 01:07 .Q15MIN PRN PRN CHEST PAIN Nitroglycerin 0.4 mg 07/07/17 01:08 Nitrostat 0.4 Mg Tablet SL 08/06/17 01:07 .Q5MIN PRN CHEST PAIN Nitroglycerin 1 gm 07/07/17 06:00 Nitro-Bid 2% Ud Packets TOP 08/06/17 05:59 Q8HT HARINDER Ondansetron HCl 4 mg 07/07/17 01:08 Zofran 4 Mg/2 Ml Vial IV 08/06/17 01:07 Q4H PRN PRN NAUSEA/VOMITING Senna/Docusate Sodium 2 udtab 07/07/17 01:08 Senokot-S Tablet PO 08/06/17 01:07 BID PRN PRN CONSTIPATION Discontinued Medications Generic Name Dose Route Start Last Admin Trade Name Freq PRN Reason Stop Dose Admin Aspirin 324 mg 07/06/17 21:25 07/06/17 21:38 Baby Aspirin 81 Mg Chew PO 07/06/17 21:26 324 mg STAT ONE Administration Aspirin Confirm 07/06/17 21:33 Baby Aspirin 81 Mg Chew Administered 07/06/17 21:34 Dose 324 mg .ROUTE .STK-MED ONE Sodium Chloride 1,000 mls @ 500 mls/hr 07/06/17 21:25 07/06/17 21:38 Sodium Chloride 0.9% 1000 Ml IV 07/06/17 23:24 500 mls/hr .Q2H STA Administration Sodium Chloride Confirm 07/06/17 21:34 Sodium Chloride 0.9% 1000 Ml Administered 07/06/17 21:35 Dose 1,000 mls @ ud .ROUTE .STK-MED ONE Morphine Sulfate 4 mg 07/06/17 23:59 07/07/17 00:17 Morphine Sulfate 4 Mg Inj IV 07/07/17 00:00 4 mg STAT ONE Administration Morphine Sulfate Confirm 07/07/17 00:16 Morphine Sulfate 4 Mg Inj Administered 07/07/17 00:17 Dose 4 mg .ROUTE .STK-MED ONE Nitroglycerin 0.4 mg 07/06/17 21:25 07/06/17 21:38 Nitrostat 0.4 Mg (Ed) SL 07/06/17 21:26 0.4 mg STAT ONE Administration Nitroglycerin Confirm 07/06/17 21:33 Nitrostat 0.4 Mg (Ed) Administered 07/06/17 21:34 Dose 0.4 mg SL .STK-MED ONE Nitroglycerin 0.4 mg 07/06/17 22:29 07/06/17 22:48 Nitrostat 0.4 Mg (Ed) SL 07/06/17 22:30 0.4 mg STAT ONE Administration Nitroglycerin 0.4 mg 07/06/17 23:59 07/07/17 00:18 Nitrostat 0.4 Mg (Ed) SL 07/07/17 00:00 0.4 mg STAT ONE Administration Nitroglycerin 1 gm 07/06/17 23:59 07/07/17 00:18 Nitro-Bid 2% Ud Packets TOP 07/07/17 00:00 1 gm STAT ONE Administration Nitroglycerin Confirm 07/07/17 00:16 Nitro-Bid 2% Ud Packets Administered 07/07/17 00:17 Dose 1 gm .ROUTE .STK-MED ONE Ondansetron HCl 4 mg 07/06/17 22:54 07/06/17 23:01 Zofran 4 Mg/2 Ml Vial IV 07/06/17 22:55 4 mg STAT ONE Administration Ondansetron HCl Confirm 07/06/17 23:01 Zofran 4 Mg/2 Ml Vial Administered 07/06/17 23:02 Dose 4 mg .ROUTE .STK-MED ONE Lab/Rad Data: Laboratory Result Diagrams 07/06/17 21:30 07/06/17 21:30 Laboratory Results 07/07/17 07/06/17 07/06/17 Range/Units 00:47 21:30 21:30 WBC (4.0-10.5) K/mm3 RBC (4.1-5.4) M/mm3 Hgb (12.0-16.0) gm/dl Hct (35-47) % MCV (78-100) fl MCH (26-32) pg MCHC (32-36) g/dl RDW (11.5-14.0) % Plt Count (150-450) K/mm3 MPV (6-9.5) fl Gran % (36.0-66.0) % Lymphocytes % (24.0-44.0) % Monocytes % (0.0-12.0) % Eosinophils % (0.00-5.0) % Basophils % (0.0-0.4) % Basophils # (0-0.4) INR 1.02 (0.8-3.0) D-Dimer < 215 (0-500) ng/mL Sodium (137-145) mmol/L Potassium (3.5-5.1) mmol/L Chloride (98-107) mEq/L Carbon Dioxide (22-30) mmol/L Anion Gap (5-15) MEQ/L BUN (7-17) mg/dl Creatinine (0.52-1.04) mg/dl Estimated GFR ML/MIN Glucose (74-106) mg/dL Calcium (8.4-10.2) mg/dL Total Bilirubin (0.2-1.3) mg/d? AST (14-36) U/L ALT (0-35) U/L Alkaline Phosphatase (38-126) U/L Troponin I < 0.012 < 0.012 (0.000-0.034) ng/ml NT-Pro-B Natriuret Pep (0-450) pg/ml Serum Total Protein (6.3-8.2) mg/dl Albumin (3.5-5.0) g/dl Ur Collection Type Urine Color (YELLOW) Urine Appearance (CLEAR) Urine pH (5-6) Ur Specific [place] (1.005-1.025) Urine Protein (Negative) Urine Ketones (NEGATIVE) Urine Blood (0-5) Robby/ul Urine Nitrite (NEGATIVE) Urine Bilirubin (NEGATIVE) Urine Urobilinogen (0-1) mg/dL Ur Leukocyte Esterase (NEGATIVE) Urine Culture Reflexed (NO) Urine Glucose (NEGATIVE) mg/dL Specimen Received 07/06/17 07/06/17 07/06/17 Range/Units 21:30 21:30 21:27 WBC 10.7 H (4.0-10.5) K/mm3 RBC 5.28 (4.1-5.4) M/mm3 Hgb 14.1 (12.0-16.0) gm/dl Hct 42.2 (35-47) % MCV 79.9 (78-100) fl MCH 26.7 (26-32) pg MCHC 33.4 (32-36) g/dl RDW 14.3 H (11.5-14.0) % Plt Count 236 (150-450) K/mm3 MPV 12.2 H (6-9.5) fl Gran % 66.6 H (36.0-66.0) % Lymphocytes % 24.6 (24.0-44.0) % Monocytes % 7.1 (0.0-12.0) % Eosinophils % 1.5 (0.00-5.0) % Basophils % 0.2 (0.0-0.4) % Basophils # 0.02 (0-0.4) INR (0.8-3.0) D-Dimer (0-500) ng/mL Sodium 135 L (137-145) mmol/L Potassium 4.4 (3.5-5.1) mmol/L Chloride 96 L (98-107) mEq/L Carbon Dioxide 22 (22-30) mmol/L Anion Gap 22.2 H (5-15) MEQ/L BUN 8 (7-17) mg/dl Creatinine 0.54 (0.52-1.04) mg/dl Estimated GFR > 60 ML/MIN Glucose 459 H (74-106) mg/dL Calcium 9.6 (8.4-10.2) mg/dL Total Bilirubin 0.60 (0.2-1.3) mg/d? AST 48 H (14-36) U/L ALT 37 H (0-35) U/L Alkaline Phosphatase 189 H (38-126) U/L Troponin I (0.000-0.034) ng/ml NT-Pro-B Natriuret Pep 53.9 (0-450) pg/ml Serum Total Protein 7.8 (6.3-8.2) mg/dl Albumin 4.7 (3.5-5.0) g/dl Ur Collection Type CLEAN CATCH Urine Color YELLOW (YELLOW) Urine Appearance CLEAR (CLEAR) Urine pH 5.0 (5-6) Ur Specific [place] 1.010 (1.005-1.025) Urine Protein NEGATIVE (Negative) Urine Ketones NEGATIVE (NEGATIVE) Urine Blood NEGATIVE (0-5) Robby/ul Urine Nitrite NEGATIVE (NEGATIVE) Urine Bilirubin NEGATIVE (NEGATIVE) Urine Urobilinogen NORMAL (0-1) mg/dL Ur Leukocyte Esterase NEGATIVE (NEGATIVE) Urine Culture Reflexed NO (NO) Urine Glucose 250 (NEGATIVE) mg/dL Specimen Received [id number] - Progress Progress: unchanged Progress Note: 07/07/17 00:29 ADMINISTERED 4 BABY ASPIRIN,. NTG 0.4MG SL X 3 DOSES, NITROPASTE 1" ANTERIOR CHEST WALL, ZOFRAN 4MG, MORPHINE 4MG IV, ACCUCHECK 356, THEN ACCUCHECK 306 AT [address] Hebert (DISCUSSED WITH DR HEBERT AT 2400 FOR OBSERVATION) - Departure Time of Disposition: 00:40 Departure Disposition: Observation Clinical Impression: ACUTE CHEST PAIN, HYPERGLYCEMIA Condition: Stable Critical Care Time: No
[2017-07-07] MEDS ORDERED: Sodium Chloride 0.9% 500 ML 500 ML IV SCH (01:08)
[2017-07-07] MEDS ORDERED: MILK OF MAGNESIA 30 ML PO PRN (01:08)
[2017-07-07] MEDS ORDERED: TYLENOL 325 MG PO PRN (01:08)
[2017-07-07] MEDS ORDERED: Zofran 4 MG/2 ML VIAL IV PRN (01:08)
[2017-07-07] MEDS ORDERED: Nitrostat 0.4 MG Tablet SL PRN (01:08)
[2017-07-07] MEDS ORDERED: MAALOX ES 30 ML UNIT DOSE PO PRN (01:08)
[2017-07-07] MEDS ORDERED: Senokot-S Tablet PO PRN (01:08)
[2017-07-07] MEDS: MORPHINE SULFATE 2 MG INJ IV PRN ×4 (02:43→09:05)
[2017-07-07] MEDS: NovoLOG Insulin SQ PRN ×2 (04:29→07:34)
[2017-07-07] MEDS ORDERED: NITRO-BID 2% UD PACKETS TOP SCH ×2 (06:00→08:00)
[2017-07-07 06:55] LABS: Risk Ratio 4.4
[2017-07-07 07:06] LABS: LDL, DIRECT 94.45 mg/dL (30-100)
[2017-07-07] MEDS: lamICTAL 100MG TABLET PO SCH ×2 (09:02→11:02)
[2017-07-07] MEDS: Ecotrin 325 MG PO SCH ×2 (09:02→11:02)
[2017-07-07] MEDS: SYNTHROID 50 MCG PO SCH ×2 (09:02→11:02)
[2017-07-07] MEDS ORDERED: TORAdol 30 mg Injection IV PRN (10:13)
--- NOTE | 2017-07-07 10:17 | PCM.HP ---
History of Present Illness - Chief Complaint Chief Complaint: ACUTE CHEST PAIN History of Present Illness: is a 42 year old female from [place] who was in town visiting family and came to the ER. She complained of high blood sugars in the 300-400 range and sharp left lower chest pain. Has been sharp and stabbing, started yesterday. no shortness of breath, no palpitations, no nausea or vomiting. She has a history of SVT s/p ablation, she has no history of CAD. Is on xarelto for PE history. - Review of Systems Constitutional: No Fever, No Chills Respiratory: No Cough, No Short Of Breath Cardiac: Chest Pain Abdominal/Gastrointestinal: No Abdominal Pain, No Nausea, No Vomiting, No Diarrhea Genitourinary Symptoms: No Dysuria Skin: No Rash All Other Systems: Reviewed and Negative Medications & Allergies Home Medications: Home Medication List Aripiprazole 10 mg [Abilify 10 MG] 1 tab PO QAM 06/22/17 [History Confirmed 07/06/17] Atorvastatin Calcium 1 tab PO DAILY 06/22/17 [History Confirmed 07/06/17] Clonidine 0.2 mg TOP WEEKLY 06/22/17 [History Confirmed 07/06/17] Lamotrigine [Lamictal] 200 mg PO BID 06/22/17 [History Confirmed 07/06/17] Levothyroxine Sodium 50 Mcg [Synthroid 50 Mcg] 1 tab PO DAILY 06/22/17 [ History Confirmed 07/06/17] Rivaroxaban [Xarelto] 1 tab PO QHS 06/22/17 [History Confirmed 07/06/17] Vortioxetine Hydrobromide [Trintellix] 1 tab PO QAM 06/22/17 [History Confirmed 07/06/17] Insulin Aspart [NovoLOG Insulin] 10 units SQ AC 07/07/17 [History Confirmed ] Insulin Glargine [Lantus Insulin] 26 units SQ QAM 07/07/17 [History Confirmed ] Insulin Glargine [Lantus Insulin] 50 units SQ HS 07/07/17 [History Confirmed 02/14] Allergies/Adverse Reactions: Allergies Allergy/AdvReac Type Severity Reaction Status Date / Time acetaminophen [From Percocet] Allergy Verified 06/24/17 21:53 diazepam [From Valium] Allergy Verified 06/24/17 21:53 hydrocodone [From [place]] Allergy Verified 06/24/17 21:53 Iodinated Contrast- Oral and Allergy Verified 06/24/17 21:53 IV Dye ketorolac [From Toradol] Allergy Verified 06/24/17 21:53 oxycodone [From Percocet] Allergy Verified 06/24/17 21:53 Sulfa (Sulfonamide Allergy Verified 06/24/17 21:53 Antibiotics) tramadol [From Ultram] Allergy Verified 06/24/17 21:53 - Past Medical History Past Medical History: Yes Neurological History: No Pertinent History ENT History: No Pertinent History Cardiac History: Arrhythmia, High Cholesterol Respiratory History: Pulmonary Embolism Endocrine Medical History: Hyperthyroidism, Hypothyroidism Musculoskelatal History: No Pertinent History GI Medical History: No Pertinent History History: No Pertinent History Pyscho-Social History: Anxiety, Depression Comment: SVT, BLOOD CLOTS, MOOD DISORDER - Female History Are you now?: No - Past Surgical History Past Surgical History: Yes Neuro Surgical History: No Pertinent History Cardiac History: Other Respiratory Surgery: No Pertinent History GI Surgical History: Cholecystectomy Female Surgical History: Hysterectomy Other Surgical History: THYROID RADIATION, ABLATION X 3 - Social History Smoking Status: Never smoker Exposure to second hand smoke: No Alcohol: None Drug Use: none - Physical Exam Vital Signs: Vital Signs - 24 hr Temp Pulse Resp BP Pulse Ox 07/07/17 07:26 97.5 F 62 16 127/56 96 07/07/17 03:36 75 18 95 07/07/17 02:22 100 07/07/17 01:49 98.1 F 74 18 142/67 97 07/07/17 01:09 70 13 141/86 98 07/07/17 00:40 72 14 141/86 96 07/06/17 22:53 80 16 152/74 100 07/06/17 22:09 78 14 152/74 98 07/06/17 21:46 85 16 161/99 97 07/06/17 20:57 98.1 F 84 16 166/94 100 General Appearance: no apparent distress, alert Neurologic Exam: alert, oriented x 3, cooperative, normal mood/affect, nml cerebellar function, nml station & gait, sensation nml, No motor deficits Eye Exam: PERRL/EOMI, eyes nml inspection Respiratory Exam: normal breath sounds, lungs clear, No respiratory distress Cardiovascular Exam: regular rate/rhythm, normal heart sounds, normal peripheral pulses Gastrointestinal/Abdomen Exam: soft, normal bowel sounds, No tenderness, No mass Extremity Exam: normal inspection, normal range of motion, pelvis stable Skin Exam: normal color, warm, dry, No rash Results - Labs Lab/Micro Results: Accuchecks Date 07/07/17 Time 07:30 Accucheck Value: 227 Lab Results-Last 24 Hours 07/07/17 07/07/17 07/07/17 Range/Units 03:48 06:25 06:25 Troponin I < 0.012 < 0.012 (0.000-0.034) ng/ml Triglycerides 230 H (30-150) mg/dl Cholesterol 151 (50-200) mg/dl LDL Cholesterol 94.45 (30-100) mg/dL HDL Cholesterol 34 L (40-60) mg/dl Heart Disease Risk Ratio 4.4 Accuchecks Date 07/07/17 Time 07:30 Accucheck Value: 227 - Other Procedures and Tests Respiratory Therapy 07/08/17 05:00 EKG ROUTINE 07/09/17 05:00 EKG ROUTINE 07/10/17 05:00 EKG ROUTINE Assessment/Plan (1) Chest pain Current Visit: No Status: Acute Assessment & Plan: has another troponin pending, seems noncardiac. will d/c nitropaste due to headache. try toradol for pleuritic type chest pain. possibly home later today. Code(s): R07.9 - CHEST PAIN, UNSPECIFIED (2) Hyperglycemia due to type 2 diabetes mellitus Current Visit: No Status: Acute Assessment & Plan: will increase lantus to 40 units am and 50 units pm, will also increase meal coverage from 10 to 15 units tid AC Code(s): E11.65 - TYPE 2 DIABETES MELLITUS WITH HYPERGLYCEMIA
[2017-07-07] MEDS ORDERED: Zanaflex 4 MG PO PRN (10:20)
[2017-07-07] MEDS ORDERED: Lantus Insulin SQ SCH ×2 (10:30→22:00)
[2017-07-07] MEDS ORDERED: ZOCOR 20MG PO SCH (11:00)
[2017-07-07] MEDS ORDERED: Sodium Chloride 0.9% 1000 ML 1,000 ML IV SCH (11:00)
[2017-07-07] MEDS ORDERED: Abilify 10 MG PO SCH ×2 (11:00→22:00)
[2017-07-07] MEDS ORDERED: NovoLOG Insulin SQ SCH (11:30)
[2017-07-07 11:37] VITALS: BP 129/60; PULSE 69; O2SAT 93
[2017-07-07] MEDS ORDERED: XARELTO 10 MG TABLET PO SCH (22:00)
[2017-07-08] MEDS ORDERED: VORTIOXETINE HYDROBROMIDE PO SCH (10:00)
[2017-07-08] MEDS ORDERED: PATIENT OWN MEDICATION PO SCH (10:00)
[2017-07-08] MEDS ORDERED: NON-FORMULARY ITEM (Atorvastatin Calcium [Atorvastatin Calcium] 1 TAB) PO SCH (10:00)
[2017-07-11] MEDS ORDERED: Catapres-TTS 1 PATCH TOP SCH (10:00)
== END 2017-07-07 13:40 | disposition home or self-care (01) ==
LOC: ED 20:35 → MED SURG 07-07 01:03
PROVIDERS: ADMIT Family Medicine; ATTEND Family Medicine
DX: R07.9 Chest pain, unspecified (principal); E11.65 Type 2 diabetes mellitus with hyperglycemia; Z79.4 Long term (current) use of insulin; E78.00 Pure hypercholesterolemia, unspecified; E05.90 Thyrotoxicosis, unspecified without thyrotoxic crisis or storm; E03.9 Hypothyroidism, unspecified; F41.8 Other specified anxiety disorders; Z86.711 Personal history of pulmonary embolism; Z79.01 Long term (current) use of anticoagulants; Z79.899 Other long term (current) drug therapy
CPT/HCPCS: 36000; 36415; 71046; 80053; 80061; 81002; 82962; 83036; 83721; 83880; 84484; 85025; 85379; 85610; 93005; 93041; 93268; 94760; 96360; 96361; 96374; 96375; 99285; G0378; J2270; J2405; A9270-GY

== ENCOUNTER 2017-11-10 02:05 | Emergency (ER) | payer MEDICARE ==
[2017-11-10] MEDS ORDERED: LOPRESSOR 5 MG/5 ML INJECTION IV ONE ×2 (02:36→03:13)
[2017-11-10] MEDS ORDERED: MORPHINE SULFATE 2 MG INJ IV ONE (02:36)
[2017-11-10] MEDS ORDERED: Sodium Chloride 0.9% 1000 ML 1,000 ML IV SCH (02:45)
--- NOTE | 2017-11-10 02:45 | ERPHSYRPT ---
- History of Present Illness Time Seen by Provider: 11/10/17 02:44 Historian: patient Exam Limitations: no limitations Patient Subjective Stated Complaint: pt is alert and oriented. pt is ambulatory with a steady gait. pt states that she was lying down sleeping when she was woken up by left sided chest pain. she states that the pain radiates to the left side of her back. pt states she has been nauseous, and SOB upon exertion, pt also states that she was getting clammy with the pain. pt denies lightheadedness, dizziness, vomitting, or feeling of heart racing. Triage Nursing Assessment: see above Physician History: she was lying down sleeping when she was woken up by left sided chest pain. she states that the pain radiates to the left side of her back. pt states she has been nauseous, and SOB upon exertion, pt also states that she was getting clammy with the pain. pt denies lightheadedness, dizziness, vomitting, or feeling of heart racing. Timing/Duration: today Activities at Onset: none Quality: aching Location: substernal Chest Pain Radiation: no radiation Severity of Pain-Max: mild Severity of Pain-Current: mild Modifying Factors: Improves With: nothing Associated Symptoms: denies symptoms Nitro Today/Relief: no nitro taken today Aspirin Treatment Today: no aspirin today Allergies/Adverse Reactions: acetaminophen [From Percocet] Allergy (Verified 06/24/17 21:53) diazepam [From Valium] Allergy (Verified 06/24/17 21:53) hydrocodone [From [place]] Allergy (Verified 06/24/17 21:53) Iodinated Contrast- Oral and IV Dye Allergy (Verified 06/24/17 21:53) ketorolac [From Toradol] Allergy (Verified 06/24/17 21:53) oxycodone [From Percocet] Allergy (Verified 06/24/17 21:53) Sulfa (Sulfonamide Antibiotics) Allergy (Verified 06/24/17 21:53) tramadol [From Ultram] Allergy (Verified 06/24/17 21:53) Home Medications: Aripiprazole 10 mg [Abilify 10 MG] 1 tab PO QAM 06/22/17 [History] Atorvastatin Calcium 1 tab PO DAILY 06/22/17 [History] Levothyroxine Sodium 50 Mcg [Synthroid 50 Mcg] 1 tab PO DAILY 06/22/17 [ History] Rivaroxaban [Xarelto] 1 tab PO QHS 06/22/17 [History] Vortioxetine Hydrobromide [Trintellix] 1 tab PO QAM 06/22/17 [History] cloNIDine [Clonidine] 0.2 mg TOP WEEKLY 06/22/17 [History] lamoTRIgine [Lamictal] 200 mg PO BID 06/22/17 [History] Insulin Glargine [Lantus Insulin] 50 units SQ HS 07/07/17 [History] Hx Tetanus, Diphtheria Vaccination/Date Given: Yes Hx Influenza Vaccination/Date Given: Yes Hx Pneumococcal Vaccination/Date Given: Yes Immunizations Up to Date: Yes - Review of Systems Constitutional: No Fever, No Chills Eyes: No Symptoms Ears, Nose, & Throat: No Symptoms Respiratory: No Cough, No Dyspnea Cardiac: Chest Pain, No Edema, No Syncope Abdominal/Gastrointestinal: No Abdominal Pain, No Nausea, No Vomiting, No Diarrhea Genitourinary Symptoms: No Dysuria Musculoskeletal: No Back Pain, No Neck Pain Skin: No Rash Neurological: No Dizziness, No Focal Weakness, No Sensory Changes Psychological: No Symptoms Endocrine: No Symptoms All Other Systems: Reviewed and Negative - Past Medical History Pertinent Past Medical History: Yes Neurological History: No Pertinent History ENT History: No Pertinent History Cardiac History: Arrhythmia, High Cholesterol Respiratory History: Pulmonary Embolism Endocrine Medical History: Diabetes Type II, Hyperthyroidism, Hypothyroidism Musculoskeletal History: No Pertinent History GI Medical History: No Pertinent History History: No Pertinent History Psycho-Social History: Anxiety, Depression Female Reproductive Disorders: Other Other Medical History: SVT, BLOOD CLOTS, MOOD DISORDER , ovarian cyts - Past Surgical History Past Surgical History: Yes Neuro Surgical History: No Pertinent History Cardiac: Other Respiratory: No Pertinent History Gastrointestinal: Cholecystectomy Genitourinary: No Pertinent History Female Surgical History: Hysterectomy Other Surgical History: THYROID RADIATION, ABLATION X 3, c section. - Social History Smoking Status: Never smoker Exposure to second hand smoke: No Drug Use: none Patient Lives Alone: No - Female History Hx Now: No - Nursing Vital Signs Nursing Vital Signs: Initial Vital Signs Temperature 98.7 F 11/10/17 02:05 Pulse Rate 81 11/10/17 02:05 Respiratory Rate 18 11/10/17 02:05 Blood Pressure 168/100 11/10/17 02:05 O2 Sat by Pulse Oximetry 100 11/10/17 02:05 Pain Scale Pain Intensity 8 - Physical Exam General Appearance: no apparent distress, alert Eye Exam: PERRL/EOMI, eyes nml inspection Ears, Nose, Throat Exam: normal ENT inspection, moist mucous membranes Neck Exam: normal inspection, non-tender, supple, full range of motion Respiratory Exam: normal breath sounds, lungs clear, No respiratory distress Cardiovascular Exam: regular rate/rhythm, normal heart sounds Gastrointestinal/Abdomen Exam: soft, No tenderness, No mass Back Exam: normal inspection, No CVA tenderness, No vertebral tenderness Extremity Exam: normal inspection, normal range of motion Neurologic Exam: alert, oriented x 3, cooperative, normal mood/affect, sensation nml, No motor deficits Skin Exam: normal color, warm, dry SpO2: 100 Oxygen Delivery: Room Air Ordered Tests: Active Orders 24 hr Category Date Time Status EKG-ER Only STAT Care 11/10/17 02:38 Active Oxygen-ED Only NASAL CANNULA 2 lpm Care 11/10/17 02:36 Active CHEST 1 VIEW (PORTABLE) Stat Exams 11/10/17 02:37 Taken CBC W DIFF Stat Lab 11/10/17 02:42 Completed CMP Stat Lab 11/10/17 02:42 Completed NT PRO BNP Stat Lab 11/10/17 02:42 Completed TROPONIN Q3H Lab 11/10/17 02:42 Completed TROPONIN Q3H Lab 11/10/17 05:45 Ordered TROPONIN Q3H Lab 11/10/17 08:45 Ordered TROPONIN Q3H Lab 11/10/17 11:45 Ordered TROPONIN Q3H Lab 11/10/17 14:45 Ordered Medication Summary Generic Name Dose Route Start Last Admin Trade Name Freq PRN Reason Stop Dose Admin Sodium Chloride 1,000 mls @ 100 mls/hr 11/10/17 02:45 11/10/17 03:18 Sodium Chloride 0.9% 1000 Ml IV 12/10/17 02:44 100 mls/hr .Q10H HARINDER Administration Lisinopril 10 mg 11/10/17 03:37 Zestril 10 Mg PO 11/10/17 03:38 STAT STA Discontinued Medications Generic Name Dose Route Start Last Admin Trade Name Freq PRN Reason Stop Dose Admin Metoprolol Tartrate 2.5 mg 11/10/17 02:36 Lopressor 5 Mg/5 Ml Injection IV 11/10/17 02:37 STAT ONE Metoprolol Tartrate Confirm 11/10/17 03:13 Lopressor 5 Mg/5 Ml Injection Administered 11/10/17 03:14 Dose 5 mg IV .STK-MED ONE Morphine Sulfate 2 mg 11/10/17 02:36 11/10/17 03:18 Morphine Sulfate 2 Mg Inj IV 11/10/17 02:37 2 mg STAT ONE Administration Morphine Sulfate Confirm 11/10/17 03:13 Morphine Sulfate 2 Mg Inj Administered 11/10/17 03:14 Dose 2 mg .ROUTE .STK-MED ONE Lab/Rad Data: Laboratory Result Diagrams 11/10/17 02:42 11/10/17 02:42 Laboratory Results 11/10/17 11/10/17 11/10/17 Range/Units 02:42 02:42 02:42 WBC 11.0 H (4.0-10.5) K/mm3 RBC 4.84 (4.1-5.4) M/mm3 Hgb 13.0 (12.0-16.0) gm/dl Hct 38.0 (35-47) % MCV 78.5 (78-100) fl MCH 26.9 (26-32) pg MCHC 34.2 (32-36) g/dl RDW 15.6 H (11.5-14.0) % Plt Count 223 (150-450) K/mm3 MPV 11.4 H (6-9.5) fl Gran % 64.5 (36.0-66.0) % Eos # (Auto) 0.21 (0-0.5) Absolute Lymphs (auto) 2.81 (1.0-4.6) Absolute Monos (auto) 0.86 (0.0-1.3) Lymphocytes % 25.6 (24.0-44.0) % Monocytes % 7.8 (0.0-12.0) % Eosinophils % 1.9 (0.00-5.0) % Basophils % 0.2 (0.0-0.4) % Absolute Granulocytes 7.08 H (1.4-6.9) Basophils # 0.02 (0-0.4) Sodium 135 L (137-145) mmol/L Potassium 3.9 (3.5-5.1) mmol/L Chloride 103 (98-107) mmol/L Carbon Dioxide 22 (22-30) mmol/L Anion Gap 13.6 (5-15) MEQ/L BUN 8 (7-17) mg/dL Creatinine 0.54 (0.52-1.04) mg/dL Estimated GFR > 60.0 ML/MIN Glucose 307 H (74-106) mg/dL Calcium 9.3 (8.4-10.2) mg/dL Total Bilirubin 0.20 (0.2-1.3) mg/dL AST 16 (14-36) U/L ALT 22 (0-35) U/L Alkaline Phosphatase 194 H (38-126) U/L Troponin I < 0.012 (0.000-0.034) ng/mL NT-Pro-B Natriuret Pep 221 (0-450) pg/mL Serum Total Protein 6.9 (6.3-8.2) g/dL Albumin 4.2 (3.5-5.0) g/dL - Progress Progress: improved Air Movement: good Blood Culture(s) Obtained: No Antibiotics given: No Counseled pt/family regarding: lab results, diagnosis, need for follow-up, rad results - Departure Time of Disposition: 03:40 Departure Disposition: Home Clinical Impression: Chest pain Qualifiers: Chest pain type: other chest pain Qualified Code(s): R07.89 - Other chest pain ; R07.8 - Other chest pain HTN (hypertension) Qualifiers: Hypertension type: essential hypertension Qualified Code(s): I10 - Essential ( primary) hypertension Condition: Stable Critical Care Time: Yes Critical Care Time(excluding separately billable procedures): 30-74 minutes Referrals: PEDRO WEAVER MD [Primary Care Provider] - Instructions: Chest Pain (DC), Atypical Chest Pain Additional Instructions: SHANTELLDALLAS CAVAZOS was seen on 11/10/17 n the Emergency Room. At that time you were treated for an emergent condition, during your visit Laboratory, Radiology and/or other procedures may have been ordered. It is very important that you follow-up with your Primary Care Physician PEDRO WEAVER within the next 24-48 hours to review your Emergency Room visit and the final results of testing that was ordered. Some test results such as Urine Cultures, Blood Cultures, and other cultures if ordered will not be finalized for 24-48 hours. If you do not have a Primary Care Provider please call the medical records department at [phone] to obtain a copy of your results or you may sign into our patient portal to obtain these results by visiting us @ [email or web address] and completing the following steps: 1. Click on the Patient Portal link 2. Click the Patient Self Enrollment Link to complete the enrollment form and entering your 3. Once the enrollment form is completed you will receive an email with a temporary ID and password at the email address you provided. 4. Next choose a user name and password. Your user name must be at least 4 characters long and your password must be at least 4 characters long. 5. Choose a security question from the list and provide your answer to the question. If you already have signed into the Health Portal you may access your Health Care Information 20/11 by the following steps: 1. Login to our website @ [email or web address] 2. Enter your original user name and password. FAQS The [facility] Health Portal is an online tool that contains your Lab Results, Radiology Reports, Visit History, Discharge Instructions and Health Summary Lab and Radiology Results will not be available for 72 hours on the portal. The Portal is a secure site, passwords are encryted and URLs are re-written so they cannot be copied and pasted. You and authorized family members are the only ones who can access your Portal. Also there is a timeout feature that protects your information if you leave the Portal page open. If you have technical difficulty please use the Contact Us link on the page this will allow you to submit any questions you have regarding the Portal or you may contact the Medical Record Department at [phone]. Prescriptions: Lisinopril 10 mg [Zestril 10 MG] 10 mg PO DAILY 30 Days #30 tablet
[2017-11-10 02:46] LABS: BASOPHIL % 0.2 % (0.0-0.4); Basophil (Absolute #) 0.02 (0-0.4); Eosinophil % 1.9 % (0.00-5.0); Eosinophil (Absolute #) 0.21 (0-0.5); Granulocyte Absolute (ANC) 7.08 (1.4-6.9); Granulocytes % 64.5 % (36.0-66.0); Lymphocyte (Absolute #) 2.81 (1.0-4.6); Lymphocytes % 25.6 % (24.0-44.0); Mean Cell Volume 78.5 fl (78-100); Mean Corpuscular Hemoglobin 26.9 pg (26-32); Mean Corpuscular Hgb Concent. 34.2 g/dl (32-36); Mean Platelet Volume 11.4 fl (6-9.5); Monocyte (Absolute #) 0.86 (0.0-1.3); Monocytes % 7.8 % (0.0-12.0); Platelet Count 223 K/mm3 (150-450); Red Blood Count 4.84 M/mm3 (4.1-5.4); Red Cell Distribution Width 15.6 % (11.5-14.0)
[2017-11-10 02:55] LABS: ALBUMIN 4.2 g/dL (3.5-5.0); ALKALINE PHOSPHATASE 194 U/L (38-126); ANION GAP 13.6 MEQ/L (5-15); BLOOD UREA NITROGEN 8 mg/dL (7-17); CHLORIDE 103 mmol/L (98-107); Calcium 9.3 mg/dL (8.4-10.2); Carbon Dioxide 22 mmol/L (22-30); Creatinine 1 0.54 mg/dL (0.52-1.04); Glucose 307 mg/dL (74-106); Potassium 3.9 mmol/L (3.5-5.1); SGOT/AST 16 U/L (14-36); SGPT/ALT 22 U/L (0-35); SODIUM 135 mmol/L (137-145); Total Protein 6.9 g/dL (6.3-8.2)
[2017-11-10 03:04] LABS: NT PRO BNP 221 pg/mL (0-450)
[2017-11-10] MEDS ORDERED: Sodium Chloride 0.9% 1000 ML 1,000 ML ONE (03:13)
[2017-11-10] MEDS ORDERED: MORPHINE SULFATE 2 MG INJ ONE (03:13)
[2017-11-10] MEDS ORDERED: Zestril 10 MG PO STA (03:37)
[2017-11-10 04:19] VITALS: BP 133/71; PULSE 67; O2SAT 97
[2017-11-10] MEDS ORDERED: BENADRYL 25 MG CAPSULE PO ONE (04:38)
[2017-11-10] MEDS ORDERED: BENADRYL 25 MG CAPSULE ONE (04:44)
--- NOTE | 2017-11-10 06:06 | XRAY ---
Indication: Left-sided chest pain. Comparison: July 06, 2017. Portable chest again demonstrates normal heart and lungs. Bony thorax intact. No new/acute findings.
== END 2017-11-10 04:25 | disposition home or self-care (01) ==
LOC: ED 02:05
DX: R07.9 Chest pain, unspecified (principal); I10 Essential (primary) hypertension; R06.02 Shortness of breath; R11.0 Nausea; Z79.899 Other long term (current) drug therapy
CPT/HCPCS: 36415; 71045; 80053; 82962; 83880; 84484; 85025; 93005; 96360; 96374; 99284; J2270; A9270-GY

== ENCOUNTER 2017-12-11 22:47 | Emergency (ER) | payer MEDICARE ==
[2017-12-11] MEDS: Sodium Chloride 0.9% 1000 ML 1,000 ML IV STA (22:57)
[2017-12-11] MEDS ORDERED: Sodium Chloride 0.9% 1000 ML 1,000 ML ONE (22:58)
--- NOTE | 2017-12-11 23:00 | ERPHSYRPT ---
- History of Present Illness Time Seen by Provider: 12/11/17 22:55 Source: patient Exam Limitations: no limitations Physician History: Is a 42-year-old white female with history of diabetes, SVT. She arrives with complaints of high blood sugar since today states her insulin rolled away and she had no access to insulin today, she states this this evening she began having sharp pain in her left upper anterior chest associated with shortness of breath no nausea no vomiting no fevers. Past medical history includes diabetes, SVT she denies any history of heart attacks, Past surgical history includes hysterectomy and cholecystectomy, 'Social history patient denies tobacco alcohol or illicit drug use, Patient states she is on Xarelto, , Timing/Duration: today Severity: moderate Modifying Factors: Improves With: nothing Associated Symptoms: shortness of breath, chest pain, other (high blood sugars at home today), No nausea, No vomiting, No abdominal pain, No heartburn, No diaphoresis, No cough, No chills, No fever, No headaches, No loss of appetite, No malaise, No rash, No syncope, No seizure, No weakness Allergies/Adverse Reactions: acetaminophen [From Percocet] Allergy (Verified 12/11/17 22:59) diazepam [From Valium] Allergy (Verified 12/11/17 22:59) hydrocodone [From [place]] Allergy (Verified 12/11/17 22:59) Iodinated Contrast- Oral and IV Dye Allergy (Verified 12/11/17 22:59) ketorolac [From Toradol] Allergy (Verified 12/11/17 22:59) oxycodone [From Percocet] Allergy (Verified 12/11/17 22:59) Sulfa (Sulfonamide Antibiotics) Allergy (Verified 12/11/17 22:59) tramadol [From Ultram] Allergy (Verified 12/11/17 22:59) Home Medications: Atorvastatin Calcium 1 tab PO DAILY 06/22/17 [History] Levothyroxine Sodium 50 Mcg [Synthroid 50 Mcg] 1 tab PO DAILY 06/22/17 [ History] Rivaroxaban [Xarelto] 1 tab PO QHS 06/22/17 [History] Vortioxetine Hydrobromide [Trintellix] 1 tab PO QAM 06/22/17 [History] cloNIDine [Clonidine] 0.2 mg TOP WEEKLY 06/22/17 [History] lamoTRIgine [Lamictal] 200 mg PO BID 06/22/17 [History] Insulin Glargine [Lantus Insulin] 50 units SQ HS 07/07/17 [History] Hx Tetanus, Diphtheria Vaccination/Date Given: Yes Hx Influenza Vaccination/Date Given: Yes Hx Pneumococcal Vaccination/Date Given: Yes - Review of Systems Constitutional: No Fever, No Chills Eyes: No Symptoms Ears, Nose, & Throat: No Symptoms Respiratory: Dyspnea, No Cough, No Cyanosis, No Dyspnea on Exertion (GARCIA), No Stridor Cardiac: Chest Pain, No Edema, No Palpitations, No Syncope, No Orthopnea Abdominal/Gastrointestinal: No Abdominal Pain, No Nausea, No Vomiting, No Diarrhea, No Constipation, No Hematemesis, No Hematochezia, No Melena, No Dysphagia, No Appetite Changes Genitourinary Symptoms: No Dysuria Musculoskeletal: No Back Pain, No Neck Pain Skin: No Rash Neurological: No Dizziness, No Focal Weakness, No Sensory Changes Psychological: No Symptoms Endocrine: No Symptoms All Other Systems: Reviewed and Negative - Past Medical History Pertinent Past Medical History: Yes Neurological History: No Pertinent History ENT History: No Pertinent History Cardiac History: Arrhythmia, High Cholesterol Respiratory History: Pulmonary Embolism Endocrine Medical History: Diabetes Type II, Hyperthyroidism, Hypothyroidism Musculoskeletal History: No Pertinent History GI Medical History: No Pertinent History History: No Pertinent History Psycho-Social History: Anxiety, Depression Female Reproductive Disorders: Other Other Medical History: SVT, BLOOD CLOTS, MOOD DISORDER , ovarian cyts - Past Surgical History Past Surgical History: Yes Neuro Surgical History: No Pertinent History Cardiac: Other Respiratory: No Pertinent History Gastrointestinal: Cholecystectomy Genitourinary: No Pertinent History Female Surgical History: Hysterectomy Other Surgical History: THYROID RADIATION, ABLATION X 3, c section. - Social History Smoking Status: Never smoker Exposure to second hand smoke: No Drug Use: none Patient Lives Alone: No - Female History Hx Now: No - Nursing Vital Signs Nursing Vital Signs: Initial Vital Signs Temperature 97.5 F 12/11/17 22:48 Pulse Rate 79 12/11/17 22:48 Blood Pressure 172/80 12/11/17 22:48 O2 Sat by Pulse Oximetry 100 12/11/17 22:48 Pain Scale Pain Intensity 9 - Physical Exam General Appearance: no apparent distress, alert Eye Exam: PERRL/EOMI, eyes nml inspection Ears, Nose, Throat Exam: normal ENT inspection, TMs normal, pharynx normal, moist mucous membranes Neck Exam: normal inspection, non-tender, supple, full range of motion Respiratory Exam: normal breath sounds, lungs clear, No respiratory distress Cardiovascular Exam: regular rate/rhythm, normal heart sounds, normal peripheral pulses Gastrointestinal/Abdomen Exam: soft, normal bowel sounds, No tenderness, No mass Back Exam: normal inspection, normal range of motion, No CVA tenderness, No vertebral tenderness Extremity Exam: normal inspection, normal range of motion, pelvis stable Neurologic Exam: alert, oriented x 3, cooperative, normal mood/affect, nml cerebellar function, nml station & gait, sensation nml, No motor deficits SpO2 Interpretation: normal (100%) - Course Nursing assessment & vital signs reviewed: Yes EKG Interpreted by Me: RATE (bpm), Sinus Rhythm, NORMAL AXIS, Other (EKG sinus rhythm with PAC [address] or T wavechanges, normal axis) - Radiology Exams Chest X-ray Interpretation: Interpreted by me, Negative Ordered Tests: Active Orders 24 hr Category Date Time Status Accucheck STAT Care 12/11/17 22:55 Active Accucheck STAT Care 12/12/17 00:42 Active Accucheck STAT Care 12/12/17 02:05 Active Accucheck STAT Care 12/12/17 03:50 Active Silicator STAT Care 12/11/17 22:49 Active Clean Catch Urine Specimen STAT Care 12/12/17 00:32 Active EKG-ER Only STAT Care 12/11/17 22:48 Active IV Insertion STAT Care 12/11/17 22:48 Active CHEST 1 VIEW (PORTABLE) Stat Exams 12/11/17 22:48 Taken BLOOD CULTURE Stat Lab 12/11/17 23:05 Received BLOOD CULTURE Stat Lab 12/12/17 02:10 Received BMP Stat Lab 12/12/17 02:10 Completed CBC W DIFF Stat Lab 12/11/17 23:05 Completed CMP Stat Lab 12/11/17 23:05 Completed D-DIMER QUANTITATION Stat Lab 12/11/17 23:05 Completed Lactic Acid Stat Lab 12/12/17 04:02 Completed TROPONIN Q3H Lab 12/11/17 23:05 Completed TROPONIN Q3H Lab 12/12/17 02:10 Completed TROPONIN Q3H Lab 12/12/17 05:00 Ordered UA W/RFX UR CULTURE Stat Lab 12/12/17 00:33 Completed VENOUS BLOOD GAS Urgent Lab 12/11/17 23:01 Completed Medication Summary Discontinued Medications Generic Name Dose Route Start Last Admin Trade Name Edward PRN Reason Stop Dose Admin Diphenhydramine HCl 25 mg 12/12/17 02:07 12/12/17 02:14 Benadryl 50 Mg/Ml IV 12/12/17 02:08 25 mg STAT ONE Administration Diphenhydramine HCl Confirm 12/12/17 02:11 Benadryl 50 Mg/Ml Administered 12/12/17 02:12 Dose 50 mg .ROUTE .STK-MED ONE Diphenhydramine HCl 25 mg 12/12/17 04:32 12/12/17 04:39 Benadryl 50 Mg/Ml IV 12/12/17 04:33 25 mg STAT ONE Administration Diphenhydramine HCl Confirm 12/12/17 04:34 Benadryl 50 Mg/Ml Administered 12/12/17 04:35 Dose 50 mg .ROUTE .STK-MED ONE Sodium Chloride 1,000 mls @ 999 mls/hr 12/11/17 22:55 12/12/17 00:25 Sodium Chloride 0.9% 1000 Ml IV 12/11/17 23:55 Infused .Q1H1M STA Infusion Sodium Chloride Confirm 12/11/17 22:58 Sodium Chloride 0.9% 1000 Ml Administered 12/11/17 22:59 Dose 1,000 mls @ ud .ROUTE .STK-MED ONE Sodium Chloride Confirm 12/12/17 00:27 Sodium Chloride 0.9% 1000 Ml Administered 12/12/17 00:28 Dose 1,000 mls @ ud .ROUTE .STK-MED ONE Sodium Chloride 1,000 mls @ 999 mls/hr 12/12/17 01:35 12/12/17 02:54 Sodium Chloride 0.9% 1000 Ml IV 12/12/17 02:35 Infused .Q1H1M STA Infusion Sodium Chloride Confirm 12/12/17 01:44 Sodium Chloride 0.9% 1000 Ml Administered 12/12/17 01:45 Dose 1,000 mls @ ud .ROUTE .STK-MED ONE Sodium Chloride 1,000 mls @ 999 mls/hr 12/12/17 02:05 12/12/17 02:09 Sodium Chloride 0.9% 1000 Ml IV 12/12/17 03:05 Infused .Q1H1M STA Infusion Morphine Sulfate 2 mg 12/12/17 00:46 12/12/17 00:53 Morphine Sulfate 2 Mg Inj IV 12/12/17 00:47 2 mg STAT ONE Administration Morphine Sulfate Confirm 12/12/17 00:50 Morphine Sulfate 2 Mg Inj Administered 12/12/17 00:51 Dose 2 mg .ROUTE .STK-MED ONE Potassium Chloride 20 meq 12/12/17 04:13 12/12/17 04:39 Klor Con 10 Meq PO 12/12/17 04:14 20 meq STAT ONE Administration Potassium Chloride Confirm 12/12/17 04:34 Klor Con 10 Meq Administered 12/12/17 04:35 Dose 20 meq PO .STK-MED ONE Lab/Rad Data: Laboratory Result Diagrams 12/11/17 23:05 12/12/17 02:10 Laboratory Results 12/12/17 12/12/17 12/12/17 Range/Units 04:02 02:10 02:10 WBC (4.0-10.5) K/mm3 RBC (4.1-5.4) M/mm3 Hgb (12.0-16.0) gm/dl Hct (35-47) % MCV (78-100) fl MCH (26-32) pg MCHC (32-36) g/dl RDW (11.5-14.0) % Plt Count (150-450) K/mm3 MPV (6-9.5) fl Gran % (36.0-66.0) % Eos # (Auto) (0-0.5) Absolute Lymphs (auto) (1.0-4.6) Absolute Monos (auto) (0.0-1.3) Lymphocytes % (24.0-44.0) % Monocytes % (0.0-12.0) % Eosinophils % (0.00-5.0) % Basophils % (0.0-0.4) % Absolute Granulocytes (1.4-6.9) Basophils # (0-0.4) D-Dimer (215-500) ng/mL pO2/FiO2 Ratio % VBG pH (7.32-7.42) VBG pCO2 at Pat Temp (42-55) mm/Hg VBG pO2 at Pat Temp (25-40) mm/Hg VBG HCO3 (22-28) meq/L VBG O2 Sat (Mike) (95-100) VBG Base Excess (-2.0-2.0) VBG Hemoglobin VBG Carboxyhemoglobin (0.0-6.9) % T HGB POC Potassium (3.5-5.1) Sodium 137 (137-145) mmol/L Potassium 3.8 (3.5-5.1) mmol/L Chloride 107 (98-107) mmol/L Carbon Dioxide 22 (22-30) mmol/L Anion Gap 12.0 (5-15) MEQ/L BUN 6 L (7-17) mg/dL Creatinine 0.48 L (0.52-1.04) mg/dL Estimated GFR > 60.0 ML/MIN Glucose 244 H (74-106) mg/dL Lactic Acid 0.8 (0.4-2.0) Calcium 8.0 L (8.4-10.2) mg/dL Total Bilirubin (0.2-1.3) mg/dL AST (14-36) U/L ALT (0-35) U/L Alkaline Phosphatase (38-126) U/L Troponin I < 0.012 (0.000-0.034) ng/mL Serum Total Protein (6.3-8.2) g/dL Albumin (3.5-5.0) g/dL Ur Collection Type Urine Color (YELLOW) Urine Appearance (CLEAR) Urine pH (5-6) Ur Specific [place] (1.005-1.025) Urine Protein (Negative) Urine Ketones (NEGATIVE) Urine Blood (0-5) Robby/ul Urine Nitrite (NEGATIVE) Urine Bilirubin (NEGATIVE) Urine Urobilinogen (0-1) mg/dL Ur Leukocyte Esterase (NEGATIVE) Urine Culture Reflexed (NO) Urine Glucose (NEGATIVE) mg/dL Specimen Received 12/12/17 12/11/17 12/11/17 Range/Units 00:33 23:05 23:05 WBC (4.0-10.5) K/mm3 RBC (4.1-5.4) M/mm3 Hgb (12.0-16.0) gm/dl Hct (35-47) % MCV (78-100) fl MCH (26-32) pg MCHC (32-36) g/dl RDW (11.5-14.0) % Plt Count (150-450) K/mm3 MPV (6-9.5) fl Gran % (36.0-66.0) % Eos # (Auto) (0-0.5) Absolute Lymphs (auto) (1.0-4.6) Absolute Monos (auto) (0.0-1.3) Lymphocytes % (24.0-44.0) % Monocytes % (0.0-12.0) % Eosinophils % (0.00-5.0) % Basophils % (0.0-0.4) % Absolute Granulocytes (1.4-6.9) Basophils # (0-0.4) D-Dimer 219 (215-500) ng/mL pO2/FiO2 Ratio % VBG pH (7.32-7.42) VBG pCO2 at Pat Temp (42-55) mm/Hg VBG pO2 at Pat Temp (25-40) mm/Hg VBG HCO3 (22-28) meq/L VBG O2 Sat (Mike) (95-100) VBG Base Excess (-2.0-2.0) VBG Hemoglobin VBG Carboxyhemoglobin (0.0-6.9) % T HGB POC Potassium (3.5-5.1) Sodium (137-145) mmol/L Potassium (3.5-5.1) mmol/L Chloride (98-107) mmol/L Carbon Dioxide (22-30) mmol/L Anion Gap (5-15) MEQ/L BUN (7-17) mg/dL Creatinine (0.52-1.04) mg/dL Estimated GFR ML/MIN Glucose (74-106) mg/dL Lactic Acid (0.4-2.0) Calcium (8.4-10.2) mg/dL Total Bilirubin (0.2-1.3) mg/dL AST (14-36) U/L ALT (0-35) U/L Alkaline Phosphatase (38-126) U/L Troponin I < 0.012 (0.000-0.034) ng/mL Serum Total Protein (6.3-8.2) g/dL Albumin (3.5-5.0) g/dL Ur Collection Type CLEAN CATCH Urine Color LT.YELLOW (YELLOW) Urine Appearance CLEAR (CLEAR) Urine pH 5.0 (5-6) Ur Specific [place] 1.015 (1.005-1.025) Urine Protein NEGATIVE (Negative) Urine Ketones NEGATIVE (NEGATIVE) Urine Blood NEGATIVE (0-5) Robby/ul Urine Nitrite NEGATIVE (NEGATIVE) Urine Bilirubin NEGATIVE (NEGATIVE) Urine Urobilinogen NORMAL (0-1) mg/dL Ur Leukocyte Esterase NEGATIVE (NEGATIVE) Urine Culture Reflexed NO (NO) Urine Glucose 1000 (NEGATIVE) mg/dL Specimen Received 12/12/17 0033 12/11/17 12/11/17 12/11/17 Range/Units 23:05 23:05 23:01 WBC 9.9 (4.0-10.5) K/mm3 RBC 5.03 (4.1-5.4) M/mm3 Hgb 13.2 (12.0-16.0) gm/dl Hct 39.5 (35-47) % MCV 78.5 (78-100) fl MCH 26.2 (26-32) pg MCHC 33.4 (32-36) g/dl RDW 14.6 H (11.5-14.0) % Plt Count 207 (150-450) K/mm3 MPV 11.4 H (6-9.5) fl Gran % 63.5 (36.0-66.0) % Eos # (Auto) 0.16 (0-0.5) Absolute Lymphs (auto) 2.52 (1.0-4.6) Absolute Monos (auto) 0.91 (0.0-1.3) Lymphocytes % 25.5 (24.0-44.0) % Monocytes % 9.2 (0.0-12.0) % Eosinophils % 1.6 (0.00-5.0) % Basophils % 0.2 (0.0-0.4) % Absolute Granulocytes 6.26 (1.4-6.9) Basophils # 0.02 (0-0.4) D-Dimer (215-500) ng/mL pO2/FiO2 Ratio 21 % VBG pH 7.35 (7.32-7.42) VBG pCO2 at Pat Temp 39 L (42-55) mm/Hg VBG pO2 at Pat Temp 22 L (25-40) mm/Hg VBG HCO3 21.5 L (22-28) meq/L VBG O2 Sat (Mike) 45.2 L (95-100) VBG Base Excess -3.8 L (-2.0-2.0) VBG Hemoglobin 13.5 VBG Carboxyhemoglobin 1.5 (0.0-6.9) % T HGB POC Potassium 3.5 (3.5-5.1) Sodium 135 L (137-145) mmol/L Potassium 3.7 (3.5-5.1) mmol/L Chloride 100 (98-107) mmol/L Carbon Dioxide 21 L (22-30) mmol/L Anion Gap 17.7 H (5-15) MEQ/L BUN 8 (7-17) mg/dL Creatinine 0.56 (0.52-1.04) mg/dL Estimated GFR > 60.0 ML/MIN Glucose 401 H (74-106) mg/dL Lactic Acid (0.4-2.0) Calcium 9.2 (8.4-10.2) mg/dL Total Bilirubin 0.30 (0.2-1.3) mg/dL AST 21 (14-36) U/L ALT 26 (0-35) U/L Alkaline Phosphatase 195 H (38-126) U/L Troponin I (0.000-0.034) ng/mL Serum Total Protein 7.0 (6.3-8.2) g/dL Albumin 4.5 (3.5-5.0) g/dL Ur Collection Type Urine Color (YELLOW) Urine Appearance (CLEAR) Urine pH (5-6) Ur Specific [place] (1.005-1.025) Urine Protein (Negative) Urine Ketones (NEGATIVE) Urine Blood (0-5) Robby/ul Urine Nitrite (NEGATIVE) Urine Bilirubin (NEGATIVE) Urine Urobilinogen (0-1) mg/dL Ur Leukocyte Esterase (NEGATIVE) Urine Culture Reflexed (NO) Urine Glucose (NEGATIVE) mg/dL Specimen Received - Progress Progress: improved Progress Note: 12/12/17 04:06 42-year-old white female with history of high blood pressure, diabetes, SVT arrives with complaint of increased blood sugars all day beginning yesterday. She states that she was not able to obtain her insulin. She states that around 11:00 last night she began to have pain in her left chest inferior to her left breast sharp and worse with breathing and associated with shortness of breath. On arrival patient with a temperature of 97 5 pulse 79 blood pressure 122/80 sats were 100% Patient had an Accu-Chek of 340 She had a EKG which was remarkable for sinus rhythm with PAC, 72 bpm, normal axis, no acute ST or T wave changes Patient had a chest x-ray remarkable for no acute disease process Patient with initial lactate of 3.4, she had no signs of infection she was afebrile she had good peripheral perfusion vitals were stable. Patient had a troponin of less than 0.012 chemistry repeat troponin at 3 hours was less than 0.017remarkable for sodium 135 potassium 3.7 chloride 100 bicarbonate 21 the 1 was 8 creatinine 0.56 glucose was 401 Initial in and gap was erroneously reported to be 38.49 however this was corrected to 17.7 Patient had a repeat BMP which showed sodium 137 potassium 3.8 chloride 107 bicarbonate 22 BUN 6 creatinine 0.4 a glucose was 244\ Patient is on Xarelto she was not given aspirin her pain was atypical chest pain and not consistent with cardiac pain Patient is improved she did get 3 L of normal fluids repeat lactate is 0.8 patient states she now has her insulin available at home we will send patient home Patient's d-dimer was within normal limits. Patient is feeling better. . 12/12/17 04:12 Will give patient 20 milliequivalents of potASSIUM CHLORIDE IN VIEW OF THE FACT THAT SHE DID RECIEVE 3 LITERS OF NORMAL SALINE. 12/12/17 04:14 12/12/17 04:54 - Departure Time of Disposition: 04:11 Departure Disposition: Home Clinical Impression: Non-cardiac chest pain, Hyperglycemia Condition: Fair Critical Care Time: No Referrals: PEDRO WEAVER MD [Primary Care Provider] - Additional Instructions: Return home. Take your insulin as prescribed by your family doctor/java lead architect. Plenty of fluids. Follow-up with your family doctor/java lead architect. Return for acute distress or for severe symptoms.
[2017-12-11 23:34] LABS: VBG BASE EXCESS -3.8 (-2.0-2.0); VBG CARBOXYHEMOGLOBIN 1.5 % T HGB (0.0-6.9); VBG HCO3- 21.5 meq/L (22-28); VBG HEMOGLOBIN 13.5; VBG O2 SATURATION 45.2 (95-100); VBG POTASSIUM 3.5 (3.5-5.1); VBG pH 7.35 (7.32-7.42)
[2017-12-12] MEDS ORDERED: Sodium Chloride 0.9% 1000 ML 1,000 ML ONE ×2 (00:27→01:44)
[2017-12-12 00:36] LABS: Appearance CLEAR (CLEAR); Bilirubin NEGATIVE (NEGATIVE); Blood NEGATIVE Ery/ul (0-5); Glucose 1000 mg/dL (NEGATIVE); Ketones NEGATIVE (NEGATIVE); Leukocyte Esterase NEGATIVE (NEGATIVE); Nitrite NEGATIVE (NEGATIVE); Protein,Urine Dip NEGATIVE (Negative); Specific Gravity 1.015 (1.005-1.025); Urobilinogen NORMAL mg/dL (0-1)
[2017-12-12 00:38] LABS: BLOOD UREA NITROGEN 8 mg/dL (7-17); Creatinine 1 0.56 mg/dL (0.52-1.04); Glucose 401 mg/dL (74-106); Potassium 3.7 mmol/L (3.5-5.1); SODIUM 135 mmol/L (137-145)
[2017-12-12 00:39] LABS: ALBUMIN 4.5 g/dL (3.5-5.0); ALKALINE PHOSPHATASE 195 U/L (38-126); CHLORIDE 100 mmol/L (98-107); Calcium 9.2 mg/dL (8.4-10.2); Carbon Dioxide 21 mmol/L (22-30); SGOT/AST 21 U/L (14-36); SGPT/ALT 26 U/L (0-35)
[2017-12-12 00:43] LABS: BASOPHIL % 0.2 % (0.0-0.4); Basophil (Absolute #) 0.02 (0-0.4); Eosinophil % 1.6 % (0.00-5.0); Eosinophil (Absolute #) 0.16 (0-0.5); Granulocyte Absolute (ANC) 6.26 (1.4-6.9); Granulocytes % 63.5 % (36.0-66.0); Hematocrit 39.5 % (35-47); Hemoglobin 13.2 gm/dl (12.0-16.0); Lymphocyte (Absolute #) 2.52 (1.0-4.6); Lymphocytes % 25.5 % (24.0-44.0); Mean Cell Volume 78.5 fl (78-100); Mean Corpuscular Hemoglobin 26.2 pg (26-32); Mean Corpuscular Hgb Concent. 33.4 g/dl (32-36); Mean Platelet Volume 11.4 fl (6-9.5); Monocyte (Absolute #) 0.91 (0.0-1.3); Monocytes % 9.2 % (0.0-12.0); Platelet Count 207 K/mm3 (150-450); Red Blood Count 5.03 M/mm3 (4.1-5.4); Red Cell Distribution Width 14.6 % (11.5-14.0); White Blood Count 9.9 K/mm3 (4.0-10.5)
[2017-12-12] MEDS ORDERED: MORPHINE SULFATE 2 MG INJ ONE (00:50)
[2017-12-12] MEDS: MORPHINE SULFATE 2 MG INJ IV ONE (00:53)
[2017-12-12] MEDS: Sodium Chloride 0.9% 1000 ML 1,000 ML IV STA ×2 (01:00→01:47)
[2017-12-12 01:53] VITALS: BP 130/71; O2SAT 97
[2017-12-12] MEDS ORDERED: BENADRYL 50 MG/ML ONE ×2 (02:11→04:34)
[2017-12-12] MEDS: BENADRYL 50 MG/ML IV ONE ×2 (02:14→04:39)
[2017-12-12 02:45] LABS: BLOOD UREA NITROGEN 6 mg/dL (7-17); CHLORIDE 107 mmol/L (98-107); Carbon Dioxide 22 mmol/L (22-30); Creatinine 1 0.48 mg/dL (0.52-1.04); Glucose 244 mg/dL (74-106); Potassium 3.8 mmol/L (3.5-5.1); SODIUM 137 mmol/L (137-145)
[2017-12-12 02:55] LABS: ANION GAP 17.7 MEQ/L (5-15)
[2017-12-12 03:05] VITALS: PULSE 80
[2017-12-12] MEDS ORDERED: Klor Con 10 MEQ PO ONE (04:34)
[2017-12-12] MEDS: Klor Con 10 MEQ PO ONE (04:39)
--- NOTE | 2017-12-12 09:19 | XRAY ---
Indication: Chest pain. Comparison: November 10, 2017. Portable apical lordotic chest again demonstrates normal heart, lungs, and bony thorax.
== END 2017-12-12 04:44 | disposition home or self-care (01) ==
LOC: ED 22:47
DX: E11.65 Type 2 diabetes mellitus with hyperglycemia (principal); Z79.4 Long term (current) use of insulin; R07.89 Other chest pain; Z79.899 Other long term (current) drug therapy
CPT/HCPCS: 36415; 71045; 80048; 80053; 81002; 82805; 82962; 83605; 84484; 85025; 85379; 87040; 93005; 93041; 96360; 96361; 96374; 96375; 96376; 99285; J1200; J2270; A9270-GY

== ENCOUNTER 2017-12-22 15:48 | Emergency (ER) | payer MEDICARE ==
[2017-12-22] MEDS ORDERED: Zofran 4 MG/2 ML VIAL IV ONE (16:09)
[2017-12-22] MEDS ORDERED: Sodium Chloride 0.9% 1000 ML 1,000 ML IV STA ×2 (16:09→16:55)
[2017-12-22] MEDS ORDERED: BENADRYL 50 MG/ML IV ONE ×3 (16:10→19:04)
--- NOTE | 2017-12-22 16:14 | ERPHSYRPT ---
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 was 480 at home. she states she has been working with her microstrategy bi developer for her fluctuating BS. she has CP when BS elevated. Triage Nursing Assessment: alert and in no distress. states CP and nausea since her BS is elevated. was 480 at home. 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 states eyes are fuzzy. Timing/Duration: today Severity: mild Associated Symptoms: nausea Hx Tetanus, Diphtheria Vaccination/Date Given: Yes Hx Influenza Vaccination/Date Given: Yes Hx Pneumococcal Vaccination/Date Given: Yes <JOSEP GOOD - Last Filed: 12/22/17 18:55> <IZABEL JOINER - Last Filed: 12/22/17 20:16> - History of Present Illness Time Seen by Provider: 12/22/17 16:00 Physician History: 42 y/o female with history of DM currently on lantus as well a history of PE on xarelto comes to the ER with left sided chest pain and elevated blood sugar of 480 at home. Here in the ER, FS is 492. Pt describes the pain as sharp, constant , 4/10 and pt has not taken any pain meds. Pt admits to blurry vision, but denies any fever, chills, shortness of breath, dizziness or palpitations. ( JOSEP GOOD) Allergies/Adverse Reactions: acetaminophen [From Percocet] Allergy (Verified 12/11/17 22:59) diazepam [From Valium] Allergy (Verified 12/11/17 22:59) hydrocodone [From [place]] Allergy (Verified 12/11/17 22:59) Iodinated Contrast- Oral and IV Dye Allergy (Verified 12/11/17 22:59) ketorolac [From Toradol] Allergy (Verified 12/11/17 22:59) oxycodone [From Percocet] Allergy (Verified 12/11/17 22:59) Sulfa (Sulfonamide Antibiotics) Allergy (Verified 12/11/17 22:59) tramadol [From Ultram] Allergy (Verified 12/11/17 22:59) Home Medications: Atorvastatin Calcium 1 tab PO DAILY 06/22/17 [History] Levothyroxine Sodium 50 Mcg [Synthroid 50 Mcg] 1 tab PO DAILY 06/22/17 [ History] Rivaroxaban [Xarelto] 1 tab PO QHS 06/22/17 [History] Vortioxetine Hydrobromide [Trintellix] 1 tab PO QAM 06/22/17 [History] cloNIDine [Clonidine] 0.2 mg TOP WEEKLY 06/22/17 [History] lamoTRIgine [Lamictal] 200 mg PO BID 06/22/17 [History] Insulin Glargine [Lantus Insulin] 50 units SQ HS 07/07/17 [History] - Review of Systems Constitutional: No Fever, No Chills Eyes: No Symptoms Ears, Nose, & Throat: No Symptoms Respiratory: No Cough, No Dyspnea Cardiac: Chest Pain, No Edema, No Palpitations, No Syncope Abdominal/Gastrointestinal: Nausea, No Abdominal Pain, No Vomiting, No Diarrhea Genitourinary Symptoms: No Dysuria Musculoskeletal: No Back Pain, No Neck Pain Skin: No Rash Neurological: No Dizziness, No Focal Weakness, No Sensory Changes Psychological: No Symptoms Endocrine: No Symptoms All Other Systems: Reviewed and Negative <JOSEP GOOD - Last Filed: 12/22/17 18:55> - Past Medical History Pertinent Past Medical History: Yes Neurological History: No Pertinent History ENT History: No Pertinent History Cardiac History: Arrhythmia, High Cholesterol Respiratory History: Pulmonary Embolism Endocrine Medical History: Diabetes Type II, Hyperthyroidism, Hypothyroidism Musculoskeletal History: No Pertinent History GI Medical History: No Pertinent History History: No Pertinent History Psycho-Social History: Anxiety, Depression Female Reproductive Disorders: Other Other Medical History: SVT, BLOOD CLOTS, MOOD DISORDER , ovarian cyts - Past Surgical History Past Surgical History: Yes Neuro Surgical History: No Pertinent History Cardiac: Other Respiratory: No Pertinent History Gastrointestinal: Cholecystectomy Genitourinary: No Pertinent History Female Surgical History: Hysterectomy Other Surgical History: ablation x3 - Social History Smoking Status: Never smoker Exposure to second hand smoke: No Drug Use: none Patient Lives Alone: No - Female History Hx Now: No <JOSEP GOOD - Last Filed: 12/22/17 18:55> - Physical Exam General Appearance: mild distress, alert Eye Exam: PERRL/EOMI, eyes nml inspection Ears, Nose, Throat Exam: normal ENT inspection, TMs normal, pharynx normal, moist mucous membranes Neck Exam: normal inspection, non-tender, supple, full range of motion Respiratory Exam: normal breath sounds, lungs clear, No chest tenderness, No respiratory distress Cardiovascular Exam: regular rate/rhythm, normal heart sounds, normal peripheral pulses, tachycardia Gastrointestinal/Abdomen Exam: soft, normal bowel sounds, No tenderness, No mass Back Exam: normal inspection, normal range of motion, No CVA tenderness, No vertebral tenderness Extremity Exam: normal inspection, normal range of motion, pelvis stable Neurologic Exam: alert, oriented x 3, cooperative, normal mood/affect, nml cerebellar function, nml station & gait, sensation nml, No motor deficits Skin Exam: normal color, warm, dry, No rash Lymphatic Exam: No adenopathy SpO2: 100 Oxygen Delivery: Room Air <JOSEP GOOD - Last Filed: 12/22/17 18:55> - Nursing Vital Signs Nursing Vital Signs: Initial Vital Signs Temperature 98.8 F 12/22/17 15:57 Pulse Rate 83 12/22/17 15:57 Respiratory Rate 20 12/22/17 15:57 Blood Pressure 175/90 12/22/17 15:57 O2 Sat by Pulse Oximetry 100 12/22/17 15:57 Pain Scale Pain Intensity 7 - CT Exams Chest CT Interpretation: Tele-radiologist Report (no PE) <IZABEL JOINER - Last Filed: 12/22/17 20:16> Ordered Tests: Active Orders 24 hr Category Date Time Status Enterprise Solutions Architect STAT Care 12/22/17 16:09 Active EKG-ER Only STAT Care 12/22/17 16:09 Active IV Insertion STAT Care 12/22/17 16:09 Active CHEST WITH CONTRAST [CT] Stat Exams 12/22/17 16:09 Taken CBC W DIFF Stat Lab 12/22/17 16:10 Completed CK-Creatinine Phosphokinase Routine Lab 12/22/17 16:10 Completed CMP Routine Lab 12/22/17 16:10 Completed HCG QUALITATIVE,SERUM Stat Lab 12/22/17 16:10 Completed Lactic Acid Stat Lab 12/22/17 16:10 Completed Lactic Acid Stat Lab 12/22/17 19:10 Completed NT PRO BNP Routine Lab 12/22/17 16:10 Completed PROTIME WITH INR Stat Lab 12/22/17 16:10 Completed PTT Stat Lab 12/22/17 16:10 Completed TROPONIN Q3H Lab 12/22/17 16:10 Completed TROPONIN Q3H Lab 12/22/17 19:12 Completed TROPONIN Q3H Lab 12/22/17 22:15 Ordered TROPONIN Q3H Lab 12/23/17 01:15 Ordered TROPONIN Q3H Lab 12/23/17 04:15 Ordered UA W/RFX UR CULTURE Stat Lab 12/22/17 16:11 Completed Medication Summary Discontinued Medications Generic Name Dose Route Start Last Admin Trade Name Freq PRN Reason Stop Dose Admin Diphenhydramine HCl 50 mg 12/22/17 16:10 12/22/17 16:21 Benadryl 50 Mg/Ml IV 12/22/17 16:11 50 mg STAT ONE Administration Diphenhydramine HCl Confirm 12/22/17 16:15 Benadryl 50 Mg/Ml Administered 12/22/17 16:16 Dose 50 mg .ROUTE .STK-MED ONE Diphenhydramine HCl 25 mg 12/22/17 18:29 12/22/17 18:34 Benadryl 50 Mg/Ml IV 12/22/17 18:30 25 mg STAT ONE Administration Diphenhydramine HCl Confirm 12/22/17 18:31 Benadryl 50 Mg/Ml Administered 12/22/17 18:32 Dose 50 mg .ROUTE .STK-MED ONE Diphenhydramine HCl 25 mg 12/22/17 19:04 12/22/17 19:14 Benadryl 50 Mg/Ml IV 12/22/17 19:05 25 mg STAT ONE Administration Diphenhydramine HCl Confirm 12/22/17 19:06 Benadryl 50 Mg/Ml Administered 12/22/17 19:07 Dose 50 mg .ROUTE .STK-MED ONE Hydrocortisone Sodium Succinate 100 mg 12/22/17 17:04 12/22/17 17:12 Solu-Cortef 100mg IV 12/22/17 17:05 100 mg STAT ONE Administration Hydrocortisone Sodium Succinate Confirm 12/22/17 17:12 Solu-Cortef 100mg Administered 12/22/17 17:13 Dose 100 mg .ROUTE .STK-MED ONE Sodium Chloride 1,000 mls @ 999 mls/hr 12/22/17 16:09 12/22/17 16:21 Sodium Chloride 0.9% 1000 Ml IV 12/22/17 17:09 999 mls/hr .Q1H1M STA Administration Sodium Chloride Confirm 12/22/17 16:15 Sodium Chloride 0.9% 1000 Ml Administered 12/22/17 16:16 Dose 1,000 mls @ ud .ROUTE .STK-MED ONE Sodium Chloride 1,000 mls @ 999 mls/hr 12/22/17 16:55 12/22/17 17:40 Sodium Chloride 0.9% 1000 Ml IV 12/22/17 17:55 999 mls/hr .Q1H1M STA Administration Sodium Chloride Confirm 12/22/17 17:39 Sodium Chloride 0.9% 1000 Ml Administered 12/22/17 17:40 Dose 1,000 mls @ ud .ROUTE .STK-MED ONE Insulin Aspart 10 unit 12/22/17 19:57 12/22/17 20:03 Novolog Insulin SQ 12/22/17 19:58 10 unit STAT ONE Administration Insulin Aspart Confirm 12/22/17 20:02 Novolog Insulin Administered 12/22/17 20:03 Dose 10 unit .ROUTE .STK-MED ONE Insulin Human Regular 10 unit 12/22/17 16:55 12/22/17 17:37 Novolin R IV 12/22/17 16:56 10 unit STAT ONE Administration Insulin Human Regular Confirm 12/22/17 17:00 Novolin R Administered 12/22/17 17:01 Dose 10 unit .ROUTE .STK-MED ONE Morphine Sulfate 4 mg 12/22/17 16:16 12/22/17 16:21 Morphine Sulfate 4 Mg Inj IV 12/22/17 16:17 4 mg STAT ONE Administration Morphine Sulfate Confirm 12/22/17 16:20 Morphine Sulfate 4 Mg Inj Administered 12/22/17 16:21 Dose 4 mg .ROUTE .STK-MED ONE Morphine Sulfate 4 mg 12/22/17 18:29 12/22/17 18:34 Morphine Sulfate 4 Mg Inj IV 12/22/17 18:30 4 mg STAT ONE Administration Morphine Sulfate Confirm 12/22/17 18:32 Morphine Sulfate 4 Mg Inj Administered 12/22/17 18:33 Dose 4 mg .ROUTE .STK-MED ONE Ondansetron HCl 4 mg 12/22/17 16:09 12/22/17 16:21 Zofran 4 Mg/2 Ml Vial IV 12/22/17 16:10 4 mg STAT ONE Administration Ondansetron HCl Confirm 12/22/17 16:15 Zofran 4 Mg/2 Ml Vial Administered 12/22/17 16:16 Dose 4 mg .ROUTE .STK-MED ONE Lab/Rad Data: Laboratory Result Diagrams 12/22/17 16:10 12/22/17 16:10 Laboratory Results 12/22/17 12/22/17 12/22/17 Range/Units 19:12 19:10 16:11 WBC (4.0-10.5) K/mm3 RBC (4.1-5.4) M/mm3 Hgb (12.0-16.0) gm/dl Hct (35-47) % MCV (78-100) fl MCH (26-32) pg MCHC (32-36) g/dl RDW (11.5-14.0) % Plt Count (150-450) K/mm3 MPV (6-9.5) fl Gran % (36.0-66.0) % Eos # (Auto) (0-0.5) Absolute Lymphs (auto) (1.0-4.6) Absolute Monos (auto) (0.0-1.3) Lymphocytes % (24.0-44.0) % Monocytes % (0.0-12.0) % Eosinophils % (0.00-5.0) % Basophils % (0.0-0.4) % Absolute Granulocytes (1.4-6.9) Basophils # (0-0.4) PT (9.95-12.35) SECONDS INR (0.8-3.0) APTT (25.3-37.0) SECONDS Sodium (137-145) mmol/L Potassium (3.5-5.1) mmol/L Chloride (98-107) mmol/L Carbon Dioxide (22-30) mmol/L Anion Gap (5-15) MEQ/L BUN (7-17) mg/dL Creatinine (0.52-1.04) mg/dL Estimated GFR ML/MIN Glucose (74-106) mg/dL Lactic Acid 1.4 (0.4-2.0) Calcium (8.4-10.2) mg/dL Total Bilirubin (0.2-1.3) mg/dL AST (14-36) U/L ALT (0-35) U/L Alkaline Phosphatase (38-126) U/L Creatine Kinase (30-135) U/L Troponin I < 0.012 (0.000-0.034) ng/mL NT-Pro-B Natriuret Pep (0-450) pg/mL Serum Total Protein (6.3-8.2) g/dL Albumin (3.5-5.0) g/dL Serum , Qual (Negative) Ur Collection Type VOID Urine Color YELLOW (YELLOW) Urine Appearance CLEAR (CLEAR) Urine pH 5.0 (5-6) Ur Specific [place] 1.010 (1.005-1.025) Urine Protein NEGATIVE (Negative) Urine Ketones TRACE (NEGATIVE) Urine Blood NEGATIVE (0-5) Robby/ul Urine Nitrite NEGATIVE (NEGATIVE) Urine Bilirubin NEGATIVE (NEGATIVE) Urine Urobilinogen NORMAL (0-1) mg/dL Ur Leukocyte Esterase NEGATIVE (NEGATIVE) Urine Culture Reflexed NO (NO) Urine Glucose 500 (NEGATIVE) mg/dL Specimen Received 12/22/17 1615 12/22/17 12/22/17 12/22/17 Range/Units 16:10 16:10 16:10 WBC (4.0-10.5) K/mm3 RBC (4.1-5.4) M/mm3 Hgb (12.0-16.0) gm/dl Hct (35-47) % MCV (78-100) fl MCH (26-32) pg MCHC (32-36) g/dl RDW (11.5-14.0) % Plt Count (150-450) K/mm3 MPV (6-9.5) fl Gran % (36.0-66.0) % Eos # (Auto) (0-0.5) Absolute Lymphs (auto) (1.0-4.6) Absolute Monos (auto) (0.0-1.3) Lymphocytes % (24.0-44.0) % Monocytes % (0.0-12.0) % Eosinophils % (0.00-5.0) % Basophils % (0.0-0.4) % Absolute Granulocytes (1.4-6.9) Basophils # (0-0.4) PT (9.95-12.35) SECONDS INR (0.8-3.0) APTT (25.3-37.0) SECONDS Sodium 137 (137-145) mmol/L Potassium 3.8 (3.5-5.1) mmol/L Chloride 101 (98-107) mmol/L Carbon Dioxide 20 L (22-30) mmol/L Anion Gap 18.9 H (5-15) MEQ/L BUN 9 (7-17) mg/dL Creatinine 0.59 (0.52-1.04) mg/dL Estimated GFR > 60.0 ML/MIN Glucose 446 H (74-106) mg/dL Lactic Acid 4.4 H (0.4-2.0) Calcium 9.3 (8.4-10.2) mg/dL Total Bilirubin 0.40 (0.2-1.3) mg/dL AST 21 (14-36) U/L ALT 31 (0-35) U/L Alkaline Phosphatase 236 H (38-126) U/L Creatine Kinase 59 (30-135) U/L Troponin I < 0.012 (0.000-0.034) ng/mL NT-Pro-B Natriuret Pep 92.0 (0-450) pg/mL Serum Total Protein 7.4 (6.3-8.2) g/dL Albumin 4.8 (3.5-5.0) g/dL Serum , Qual NEGATIVE (Negative) Ur Collection Type Urine Color (YELLOW) Urine Appearance (CLEAR) Urine pH (5-6) Ur Specific [place] (1.005-1.025) Urine Protein (Negative) Urine Ketones (NEGATIVE) Urine Blood (0-5) Robby/ul Urine Nitrite (NEGATIVE) Urine Bilirubin (NEGATIVE) Urine Urobilinogen (0-1) mg/dL Ur Leukocyte Esterase (NEGATIVE) Urine Culture Reflexed (NO) Urine Glucose (NEGATIVE) mg/dL Specimen Received 12/22/17 12/22/17 Range/Units 16:10 16:10 WBC 10.0 (4.0-10.5) K/mm3 RBC 5.31 (4.1-5.4) M/mm3 Hgb 13.8 (12.0-16.0) gm/dl Hct 41.7 (35-47) % MCV 78.5 (78-100) fl MCH 26.0 (26-32) pg MCHC 33.1 (32-36) g/dl RDW 14.5 H (11.5-14.0) % Plt Count 228 (150-450) K/mm3 MPV 11.5 H (6-9.5) fl Gran % 69.0 H (36.0-66.0) % Eos # (Auto) 0.15 (0-0.5) Absolute Lymphs (auto) 2.15 (1.0-4.6) Absolute Monos (auto) 0.77 (0.0-1.3) Lymphocytes % 21.5 L (24.0-44.0) % Monocytes % 7.7 (0.0-12.0) % Eosinophils % 1.5 (0.00-5.0) % Basophils % 0.3 (0.0-0.4) % Absolute Granulocytes 6.89 (1.4-6.9) Basophils # 0.03 (0-0.4) PT 11.8 (9.95-12.35) SECONDS INR 1.01 (0.8-3.0) APTT 31.2 (25.3-37.0) SECONDS Sodium (137-145) mmol/L Potassium (3.5-5.1) mmol/L Chloride (98-107) mmol/L Carbon Dioxide (22-30) mmol/L Anion Gap (5-15) MEQ/L BUN (7-17) mg/dL Creatinine (0.52-1.04) mg/dL Estimated GFR ML/MIN Glucose (74-106) mg/dL Lactic Acid (0.4-2.0) Calcium (8.4-10.2) mg/dL Total Bilirubin (0.2-1.3) mg/dL AST (14-36) U/L ALT (0-35) U/L Alkaline Phosphatase (38-126) U/L Creatine Kinase (30-135) U/L Troponin I (0.000-0.034) ng/mL NT-Pro-B Natriuret Pep (0-450) pg/mL Serum Total Protein (6.3-8.2) g/dL Albumin (3.5-5.0) g/dL Serum , Qual (Negative) Ur Collection Type Urine Color (YELLOW) Urine Appearance (CLEAR) Urine pH (5-6) Ur Specific [place] (1.005-1.025) Urine Protein (Negative) Urine Ketones (NEGATIVE) Urine Blood (0-5) Robby/ul Urine Nitrite (NEGATIVE) Urine Bilirubin (NEGATIVE) Urine Urobilinogen (0-1) mg/dL Ur Leukocyte Esterase (NEGATIVE) Urine Culture Reflexed (NO) Urine Glucose (NEGATIVE) mg/dL Specimen Received - Progress Progress: improved Counseled pt/family regarding: lab results, diagnosis, need for follow-up, rad results <IZABEL JOINER - Last Filed: 12/22/17 20:16> <JOSEP GOOD - Last Filed: 12/22/17 18:55> - Departure Time of Disposition: 20:13 Departure Disposition: Home Critical Care Time: Yes Critical Care Time(excluding separately billable procedures): 30-74 minutes <RHYSIZABEL TREVIÑO - Last Filed: 12/22/17 20:16> - Departure Clinical Impression: Non-cardiac chest pain, History of pulmonary embolism Hyperglycemia due to type 2 diabetes mellitus Qualifiers: Diabetes mellitus 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 Qualified Code(s): E11.65 - Type 2 diabetes mellitus with hyperglycemia HTN (hypertension) Qualifiers: Hypertension type: essential hypertension Qualified Code(s): I10 - Essential ( primary) hypertension Condition: Stable Referrals: PEDRO WEAVER MD [Primary Care Provider] - Followup in 3 days w/ PCP Instructions: Atypical Chest Pain, Type 2 Diabetes, Diabetes Type 2 (DC), Diabetes in Older Adults Additional Instructions: follow up with your primary care physician in 2-3 days for further more concise care of your diabetes.Patient is advised to take care of her diabetes with some adjustment of insulin and she is to follow up with her primary care physician. DALLAS STINSON was seen on 12/22/17 n the Emergency Room. At that time you were treated for an emergent condition, during your visit Laboratory, Radiology and/or other procedures may have been ordered. It is very important that you follow-up with your Primary Care Physician PEDRO WEAVER within the next 24-48 hours to review your Emergency Room visit and the final results of testing that was ordered. Some test results such as Urine Cultures, Blood Cultures, and other cultures if ordered will not be finalized for 24-48 hours. If you do not have a Primary Care Provider please call the medical records department at [phone] to obtain a copy of your results or you may sign into our patient portal to obtain these results by visiting us @ [email or web address] and completing the following steps: 1. Click on the Patient Portal link 2. Click the Patient Self Enrollment Link to complete the enrollment form and entering your 3. Once the enrollment form is completed you will receive an email with a temporary ID and password at the email address you provided. 4. Next choose a user name and password. Your user name must be at least 4 characters long and your password must be at least 4 characters long. 5. Choose a security question from the list and provide your answer to the question. If you already have signed into the Health Portal you may access your Health Care Information 20/11 by the following steps: 1. Login to our website @ [email or web address] 2. Enter your original user name and password. FAQS The [facility] Health Portal is an online tool that contains your Lab Results, Radiology Reports, Visit History, Discharge Instructions and Health Summary Lab and Radiology Results will not be available for 72 hours on the portal. The Portal is a secure site, passwords are encryted and URLs are re-written so they cannot be copied and pasted. You and authorized family members are the only ones who can access your Portal. Also there is a timeout feature that protects your information if you leave the Portal page open. If you have technical difficulty please use the Contact Us link on the page this will allow you to submit any questions you have regarding the Portal or you may contact the Medical Record Department at [phone].
[2017-12-22] MEDS ORDERED: BENADRYL 50 MG/ML ONE ×3 (16:15→19:06)
[2017-12-22] MEDS ORDERED: Sodium Chloride 0.9% 1000 ML 1,000 ML ONE ×2 (16:15→17:39)
[2017-12-22] MEDS ORDERED: Zofran 4 MG/2 ML VIAL ONE (16:15)
[2017-12-22] MEDS ORDERED: MORPHINE SULFATE 4 MG INJ IV ONE ×2 (16:16→18:29)
[2017-12-22 16:17] LABS: Appearance CLEAR (CLEAR); Bilirubin NEGATIVE (NEGATIVE); Blood NEGATIVE Ery/ul (0-5); Glucose 500 mg/dL (NEGATIVE); Ketones TRACE (NEGATIVE); Leukocyte Esterase NEGATIVE (NEGATIVE); Nitrite NEGATIVE (NEGATIVE); Protein,Urine Dip NEGATIVE (Negative); Urobilinogen NORMAL mg/dL (0-1)
[2017-12-22 16:18] LABS: BASOPHIL % 0.3 % (0.0-0.4); Basophil (Absolute #) 0.03 (0-0.4); Eosinophil % 1.5 % (0.00-5.0); Eosinophil (Absolute #) 0.15 (0-0.5); Granulocyte Absolute (ANC) 6.89 (1.4-6.9); Hematocrit 41.7 % (35-47); Hemoglobin 13.8 gm/dl (12.0-16.0); Lymphocyte (Absolute #) 2.15 (1.0-4.6); Lymphocytes % 21.5 % (24.0-44.0); Mean Cell Volume 78.5 fl (78-100); Mean Corpuscular Hgb Concent. 33.1 g/dl (32-36); Mean Platelet Volume 11.5 fl (6-9.5); Monocyte (Absolute #) 0.77 (0.0-1.3); Monocytes % 7.7 % (0.0-12.0); Platelet Count 228 K/mm3 (150-450); Red Blood Count 5.31 M/mm3 (4.1-5.4); Red Cell Distribution Width 14.5 % (11.5-14.0)
[2017-12-22 16:19] LABS: Lactic Acid 4.4 (0.4-2.0)
[2017-12-22] MEDS ORDERED: MORPHINE SULFATE 4 MG INJ ONE ×2 (16:20→18:32)
[2017-12-22 16:36] LABS: INR 1.01 (0.8-3.0)
[2017-12-22 16:39] LABS: PTT 31.2 SECONDS (25.3-37.0)
[2017-12-22 16:43] LABS: SGPT/ALT 31 U/L (0-35)
[2017-12-22 16:48] LABS: ALBUMIN 4.8 g/dL (3.5-5.0); ALKALINE PHOSPHATASE 236 U/L (38-126); ANION GAP 18.9 MEQ/L (5-15); BLOOD UREA NITROGEN 9 mg/dL (7-17); CHLORIDE 101 mmol/L (98-107); CK-Creatinine Phosphokinase 59 U/L (30-135); Calcium 9.3 mg/dL (8.4-10.2); Carbon Dioxide 20 mmol/L (22-30); Creatinine 1 0.59 mg/dL (0.52-1.04); Glucose 446 mg/dL (74-106); Potassium 3.8 mmol/L (3.5-5.1); SGOT/AST 21 U/L (14-36); SODIUM 137 mmol/L (137-145); Total Protein 7.4 g/dL (6.3-8.2)
[2017-12-22 16:52] LABS: TROPONIN < 0.012 ng/mL (0.000-0.034)
[2017-12-22] MEDS ORDERED: NovoLIN R IV ONE (16:55)
[2017-12-22] MEDS ORDERED: NovoLIN R ONE (17:00)
[2017-12-22] MEDS ORDERED: solu-CORTEF 100MG IV ONE (17:04)
[2017-12-22] MEDS ORDERED: solu-CORTEF 100MG ONE (17:12)
[2017-12-22 19:12] VITALS: O2SAT 97
[2017-12-22] MEDS ORDERED: NovoLOG Insulin SQ ONE (19:57)
[2017-12-22] MEDS ORDERED: NovoLOG Insulin ONE (20:02)
[2017-12-22 20:45] VITALS: BP 143/77; PULSE 84
--- NOTE | 2017-12-23 08:07 | XRAY ---
Indication: Chest pain. Multiple contiguous axial images obtained through the chest using 80 cc Isovue 370 contrast and PE protocol. Known IV contrast allergy. Patient was premedicated appropriately by the ER clinician. Comparison: June 23, 2017. There is poor opacification of the pulmonary arteries limiting evaluation for pulmonary embolus. No large central pulmonary embolus. Heart is not enlarged. Aorta is normal in course and caliber. No pathologic mediastinal/hilar lymphadenopathy. Examination of the lung parenchyma again demonstrates minimal bilateral dependent atelectasis. No suspicious pulmonary mass, infiltrate, or effusion. Bony thorax intact. Limited upper abdomen again demonstrate mild fatty liver. Impression: 1. Pulmonary embolus evaluation limited due to suboptimal opacification. No large central pulmonary embolus. 2. No new or acute cardiopulmonary abnormalities. 3. Stable fatty liver. Comment: Preliminary interpretation was made by [facility]. No critical discrepancy. CTDI 20.71
== END 2017-12-22 20:37 | disposition home or self-care (01) ==
LOC: ED 15:48
DX: R07.89 Other chest pain (principal); E11.65 Type 2 diabetes mellitus with hyperglycemia; I10 Essential (primary) hypertension; Z79.4 Long term (current) use of insulin; Z86.711 Personal history of pulmonary embolism; Z79.899 Other long term (current) drug therapy
CPT/HCPCS: 36000; 36415; 71260; 80053; 81002; 82550; 82962; 83605; 83880; 84484; 84703; 85025; 85610; 85730; 93005; 93041; 96360; 96361; 96365; 96372; 96374; 96375; 96376; 99285; J1200; J1720; J2270; J2405; A9270-GY

== ENCOUNTER 2018-03-09 17:13 | Inpatient (IN) | payer MEDICARE ==
[2018-03-09] MEDS ORDERED: Zofran 4 MG/2 ML VIAL IV ONE (18:07)
[2018-03-09] MEDS ORDERED: Sodium Chloride 0.9% 1000 ML 1,000 ML IV STA (18:07)
[2018-03-09] MEDS ORDERED: MORPHINE SULFATE 4 MG INJ IV ONE ×2 (18:12→22:03)
[2018-03-09] MEDS ORDERED: MORPHINE SULFATE 4 MG INJ ONE ×2 (18:14→22:06)
[2018-03-09] MEDS ORDERED: Zofran 4 MG/2 ML VIAL ONE (18:14)
[2018-03-09] MEDS ORDERED: Sodium Chloride 0.9% 1000 ML 1,000 ML ONE (18:14)
--- NOTE | 2018-03-09 18:14 | ERPHSYRPT ---
- History of Present Illness Historian: patient, other Exam Limitations: no limitations Patient Subjective Stated Complaint: l sided chest pain (under left brest) radiating to her back starting 30 min ago. c/o nausea. no c/o sob, dizziness, diaphoresis. Triage Nursing Assessment: pt a &o x3. skin w/d/p/i. no sob assessed. lungs clear. no cough or fever. bs present x4. pt reports last bm today. Timing/Duration: today Activities at Onset: none Quality: aching Abdominal Pain Onset Location: LUQ Pain Radiation: no radiation Severity of Pain-Max: moderate Severity of Pain-Current: moderate Modifying Factors: Improves With: nothing Associated Symptoms: chest pain, nausea Previous symptoms: no prior history Hx Tetanus, Diphtheria Vaccination/Date Given: Yes Hx Influenza Vaccination/Date Given: Yes Hx Pneumococcal Vaccination/Date Given: Yes Immunizations Up to Date: Yes <ENIO ARELLANO - Last Filed: 03/09/18 19:31> <DIANE BARTH - Last Filed: 03/11/18 07:09> - History of Present Illness Time Seen by Provider: 03/09/18 18:09 Physician History: The patient is a 42-year-old female with a friend. She is visiting here from [place]. She has a implanted blood glucose monitoring device. Her blood glucose levels have been dropping from the high 300s down to 69 over the last several hours today. She had some chips and a Coke and it did not help her blood sugar. She also complains of upper left abdominal pain that began 30 minutes ago. She has some mild nausea. She denies shortness of breath dizziness or sweating. Her past medical history is significant for diabetes and bipolar disorder. (ENIO ARELLANO) Allergies/Adverse Reactions: acetaminophen [From Percocet] Allergy (Verified 03/09/18 23:50) diazepam [From Valium] Allergy (Verified 03/09/18 23:50) hydrocodone [From [place]] Allergy (Verified 03/09/18 23:50) Iodinated Contrast- Oral and IV Dye Allergy (Verified 03/09/18 23:50) ketorolac [From Toradol] Allergy (Verified 03/09/18 23:50) oxycodone [From Percocet] Allergy (Verified 03/09/18 23:50) Sulfa (Sulfonamide Antibiotics) Allergy (Verified 03/09/18 23:50) tramadol [From Ultram] Allergy (Verified 03/09/18 23:50) Home Medications: Atorvastatin Calcium 80 mg PO HS 06/22/17 [History] Levothyroxine Sodium 50 Mcg [Synthroid 50 Mcg] 1 - 2 tab PO UD 06/22/17 [ History] Rivaroxaban [Xarelto] 20 mg PO QHS 06/22/17 [History] Vortioxetine Hydrobromide [Trintellix] 20 mg PO QAM 06/22/17 [History] cloNIDine [Clonidine] 0.2 mg TOP WEEKLY 06/22/17 [History] lamoTRIgine [Lamictal] 200 mg PO BID 06/22/17 [History] Aripiprazole 10 mg [Abilify 10 MG] 15 mg PO QAM 03/09/18 [History] Clonazepam 0.5 mg PO HS 03/09/18 [History] Insulin Aspart [NovoLOG Insulin] 0 unit SQ AC 03/09/18 [History] Insulin Aspart [NovoLOG Insulin] 5 unit SQ AC 03/09/18 [History] Insulin Glargine [Lantus Insulin] 14 unit SQ QAM 03/09/18 [History] OLANZapine [Zyprexa] 15 mg PO HS 03/09/18 [History] - Review of Systems Constitutional: No Symptoms ( no she says she is an or hours she's got 5 sh she' s got bipolar so sh) Eyes: No Symptoms Ears, Nose, & Throat: No Symptoms Respiratory: No Cough, No Dyspnea Cardiac: No Chest Pain, No Edema, No Syncope Abdominal/Gastrointestinal: Abdominal Pain, Nausea, No Vomiting Genitourinary Symptoms: No Dysuria Musculoskeletal: No Back Pain, No Neck Pain Skin: No Rash Neurological: No Dizziness, No Focal Weakness, No Sensory Changes Psychological: No Symptoms Endocrine: No Symptoms Hematologic/Lymphatic: No Symptoms Immunological/Allergic: No Symptoms All Other Systems: Reviewed and Negative <ENIO ARELLANO - Last Filed: 03/09/18 19:31> - Past Medical History Pertinent Past Medical History: Yes Neurological History: No Pertinent History ENT History: No Pertinent History Cardiac History: Arrhythmia, High Cholesterol Respiratory History: Pulmonary Embolism Endocrine Medical History: Diabetes Type II, Hypothyroidism Musculoskeletal History: No Pertinent History GI Medical History: No Pertinent History History: No Pertinent History Psycho-Social History: Anxiety, Depression Female Reproductive Disorders: Other Other Medical History: SVT, BLOOD CLOTS, MOOD DISORDER , ovarian cyts - Past Surgical History Past Surgical History: Yes Neuro Surgical History: No Pertinent History Cardiac: Other Respiratory: No Pertinent History Gastrointestinal: Cholecystectomy Genitourinary: No Pertinent History Female Surgical History: Hysterectomy, Section Other Surgical History: ablation x3 - Social History Smoking Status: Never smoker Exposure to second hand smoke: No Drug Use: none Patient Lives Alone: No - Female History Hx Last Menstrual Period: hyster Hx Now: No <ENIO ARELLANO - Last Filed: 03/09/18 19:31> - Physical Exam General Appearance: no apparent distress, alert, obese Eye Exam: PERRL/EOMI, eyes nml inspection Ears, Nose, Throat Exam: normal ENT inspection, pharynx normal, moist mucous membranes Neck Exam: normal inspection, non-tender, supple, full range of motion Respiratory Exam: normal breath sounds, lungs clear, No respiratory distress Cardiovascular Exam: regular rate/rhythm, normal heart sounds Gastrointestinal/Abdomen Exam: tenderness (LUQ) Pelvic Exam: not done Rectal Exam: not done Back Exam: normal inspection, normal range of motion, No CVA tenderness, No vertebral tenderness Extremity Exam: normal inspection, normal range of motion, pelvis stable Neurologic Exam: alert, oriented x 3, cooperative, normal mood/affect, nml cerebellar function, sensation nml, No motor deficits Skin Exam: normal color, warm, dry Lymphatic Exam: No adenopathy SpO2 Interpretation: normal SpO2: 99 Oxygen Delivery: Room Air <ENIO ARELLANO - Last Filed: 03/09/18 19:31> - Nursing Vital Signs Nursing Vital Signs: Initial Vital Signs Temperature 97.6 F 03/09/18 17:19 Pulse Rate 87 03/09/18 17:19 Respiratory Rate 16 03/09/18 17:19 Blood Pressure 161/97 03/09/18 17:19 O2 Sat by Pulse Oximetry 100 03/09/18 17:19 Pain Scale Pain Intensity 8 - Course EKG Interpreted by Me: RATE, Sinus Rhythm, NORMAL AXIS, NORMAL INTERVALS, NORMAL QRS, NORMAL ST-T - Radiology Exams Chest X-ray Interpretation: Interpreted by me, Negative Abdomen X-ray Interpretation: Interpreted by me, Negative <ENIO ARELLANO - Last Filed: 03/09/18 19:31> - Course Nursing assessment & vital signs reviewed: Yes <DIANE BARTH - Last Filed: 03/11/18 07:09> Ordered Tests: Active Orders 24 hr Category Date Time Status AMYLASE AM.LAB Lab 03/11/18 05:15 Completed Medication Summary Generic Name Dose Route Start Last Admin Trade Name Freq PRN Reason Stop Dose Admin Aripiprazole 15 mg 03/10/18 14:00 03/10/18 14:12 Abilify 10 Mg PO 04/09/18 13:59 15 mg QAM HARINDER Administration Clonazepam 0.5 mg 03/10/18 22:00 03/10/18 22:46 Klonopin 0.5 Mg PO 04/09/18 21:59 0.5 mg HS HARINDER Administration Clonidine HCl 0.2 mg 03/10/18 14:00 Catapres-Tts 1 Patch TOP 04/09/18 13:59 WEEKLY HARINDER Dextrose 25 ml 03/09/18 23:39 03/10/18 16:09 D50w 50 Ml Abboject IV 04/08/18 23:38 25 ml PRN PRN Administration HYPOGLYCEMIA Diphenhydramine HCl 50 mg 03/10/18 13:48 03/11/18 05:20 Benadryl 50 Mg/Ml IV 04/09/18 13:47 50 mg Q4H PRN PRN Administration ITCHING Glucose 15 gm 03/10/18 13:14 03/10/18 12:05 Glutose 15 Gm Oral Gel PO 04/09/18 13:13 15 gm PRN PRN Administration HYPOGLYCEMIA Dextrose/Sodium Chloride 1,000 mls @ 150 mls/hr 03/10/18 06:00 03/11/18 05:20 Dextrose 5% -0.45 Nacl 1000 Ml IV 04/09/18 05:59 150 mls/hr .Q6H40M HARINDER Administration Lamotrigine 200 mg 03/10/18 14:00 03/10/18 22:46 Lamictal 100mg Tablet PO 04/09/18 13:59 200 mg BID HARINDER Administration Levothyroxine Sodium 50 mcg 03/10/18 10:00 03/10/18 14:12 Synthroid 50 Mcg PO 04/09/18 09:59 50 mcg SuTuThSa HARINDER Administration Levothyroxine Sodium 100 mcg 03/11/18 10:00 Synthroid 100 Mcg PO 04/10/18 09:59 MoWeFr HARINDER Miscellaneous Information 1 each 03/10/18 13:30 Medication Intervention PO 04/09/18 13:29 .RN TO CHECK ON HARINDER Morphine Sulfate 4 mg 03/09/18 22:43 03/11/18 04:13 Morphine Sulfate 4 Mg Inj IV 03/14/18 22:42 4 mg Q4H PRN PRN Administration PAIN Olanzapine 15 mg 03/10/18 22:00 03/10/18 22:46 Zyprexa 5mg Tablet PO 04/09/18 21:59 15 mg HS HARINDER Administration Ondansetron HCl 4 mg 03/09/18 22:43 03/10/18 22:47 Zofran 4 Mg/2 Ml Vial IV 04/08/18 22:42 4 mg Q6H PRN PRN Administration NAUSEA/VOMITING Rivaroxaban 20 mg 03/10/18 22:00 03/10/18 22:46 Xarelto 10 Mg Tablet PO 04/09/18 21:59 20 mg HS HARINDER Administration Simvastatin 80 mg 03/10/18 22:00 03/10/18 22:47 Zocor 20mg PO 04/09/18 21:59 80 mg HS HARINDER Administration Discontinued Medications Generic Name Dose Route Start Last Admin Trade Name Freq PRN Reason Stop Dose Admin Dextrose 25 ml 03/09/18 20:01 03/09/18 20:12 D50w 50ml Vial IV 03/09/18 20:02 Not Given STAT ONE Dextrose Confirm 03/09/18 20:00 D50w 50 Ml Abboject Administered 03/09/18 20:01 Dose 50 ml IV .STK-MED ONE Dextrose 50 ml 03/09/18 20:04 03/09/18 20:12 D50w 50 Ml Abboject IV 03/09/18 20:05 Not Given STAT ONE Dextrose 25 ml 03/09/18 20:05 03/09/18 20:12 D50w 50 Ml Abboject IV 03/09/18 20:06 25 ml STAT ONE Administration Dextrose 50 ml 03/09/18 21:47 03/09/18 21:57 D50w 50 Ml Abboject IV 03/09/18 21:48 50 ml STAT ONE Administration Dextrose Confirm 03/09/18 21:53 D50w 50 Ml Abboject Administered 03/09/18 21:54 Dose 50 ml IV .STK-MED ONE Glucose Confirm 03/10/18 12:02 Glutose 15 Gm Oral Gel Administered 03/10/18 12:03 Dose 15 gm PO .STK-MED ONE Sodium Chloride 1,000 mls @ 999 mls/hr 03/09/18 18:07 03/09/18 19:19 Sodium Chloride 0.9% 1000 Ml IV 03/09/18 19:07 Infused .Q1H1M STA Infusion Sodium Chloride Confirm 03/09/18 18:14 Sodium Chloride 0.9% 1000 Ml Administered 03/09/18 18:15 Dose 1,000 mls @ ud .ROUTE .STK-MED ONE Dextrose/Sodium Chloride 1,000 mls @ 100 mls/hr 03/09/18 22:45 03/09/18 23:36 Dextrose 5% -0.45 Nacl 1000 Ml IV 04/08/18 22:44 100 mls/hr .Q10H HARINDER Administration Dextrose/Sodium Chloride Confirm 03/09/18 23:31 Dextrose 5% -0.45 Nacl 1000 Ml Administered 03/09/18 23:32 Dose 1,000 mls @ ud IV .STK-MED ONE Methylprednisolone Sodium Succinate 40 mg 03/10/18 14:00 03/11/18 05:25 Solu-Medrol 40 Mg IV 04/09/18 13:59 Not Given Q4H HARINDER Morphine Sulfate 4 mg 03/09/18 18:12 03/09/18 18:19 Morphine Sulfate 4 Mg Inj IV 03/09/18 18:13 4 mg STAT ONE Administration Morphine Sulfate Confirm 03/09/18 18:14 Morphine Sulfate 4 Mg Inj Administered 03/09/18 18:15 Dose 4 mg .ROUTE .STK-MED ONE Morphine Sulfate 4 mg 03/09/18 22:03 03/09/18 22:09 Morphine Sulfate 4 Mg Inj IV 03/09/18 22:04 4 mg STAT ONE Administration Morphine Sulfate Confirm 03/09/18 22:06 Morphine Sulfate 4 Mg Inj Administered 03/09/18 22:07 Dose 4 mg .ROUTE .STK-MED ONE Ondansetron HCl 4 mg 03/09/18 18:07 03/09/18 18:18 Zofran 4 Mg/2 Ml Vial IV 03/09/18 18:08 4 mg STAT ONE Administration Ondansetron HCl Confirm 03/09/18 18:14 Zofran 4 Mg/2 Ml Vial Administered 03/09/18 18:15 Dose 4 mg .ROUTE .STK-MED ONE Lab/Rad Data: Laboratory Result Diagrams 03/09/18 19:50 03/09/18 19:50 Laboratory Results 03/09/18 03/09/18 03/09/18 Range/Units 21:35 19:50 19:50 WBC (4.0-10.5) K/mm3 RBC (4.1-5.4) M/mm3 Hgb (12.0-16.0) gm/dl Hct (35-47) % MCV (78-100) fl MCH (26-32) pg MCHC (32-36) g/dl RDW (11.5-14.0) % Plt Count (150-450) K/mm3 MPV (6-9.5) fl Gran % (36.0-66.0) % Eos # (Auto) (0-0.5) Absolute Lymphs (auto) (1.0-4.6) Absolute Monos (auto) (0.0-1.3) Lymphocytes % (24.0-44.0) % Monocytes % (0.0-12.0) % Eosinophils % (0.00-5.0) % Basophils % (0.0-0.4) % Absolute Granulocytes (1.4-6.9) Basophils # (0-0.4) Sodium 141 (137-145) mmol/L Potassium 3.9 (3.5-5.1) mmol/L Chloride 105 (98-107) mmol/L Carbon Dioxide 26 (22-30) mmol/L Anion Gap 13.8 (5-15) MEQ/L BUN 13 (7-17) mg/dL Creatinine 0.57 (0.52-1.04) mg/dL Estimated GFR > 60.0 ML/MIN Glucose 67 L (74-106) mg/dL Calcium 8.9 (8.4-10.2) mg/dL Total Bilirubin 0.20 (0.2-1.3) mg/dL AST 52 H (14-36) U/L ALT 26 (0-35) U/L Alkaline Phosphatase 171 H (38-126) U/L Troponin I < 0.012 < 0.012 (0.000-0.034) ng/mL Serum Total Protein 7.0 (6.3-8.2) g/dL Albumin 4.4 (3.5-5.0) g/dL Lipase 61 (23-300) U/L Urine Color (YELLOW) Urine Appearance (CLEAR) Urine pH (5-6) Ur Specific [place] (1.005-1.025) Urine Protein (Negative) Urine Ketones (NEGATIVE) Urine Blood (0-5) Robby/ul Urine Nitrite (NEGATIVE) Urine Bilirubin (NEGATIVE) Urine Urobilinogen (0-1) mg/dL Ur Leukocyte Esterase (NEGATIVE) Urine WBC (Auto) (0-5) /HPF Urine RBC (Auto) (0-2) /HPF U Epithel Cells (Auto) (FEW) /HPF Urine Bacteria (Auto) (NEGATIVE) /HPF Urine Mucus (Auto) (NEGATIVE) /HPF Urine Culture Reflexed (NO) Urine Glucose (NEGATIVE) mg/dL 03/09/18 03/09/18 Range/Units 19:50 18:48 WBC 17.7 H (4.0-10.5) K/mm3 RBC 5.03 (4.1-5.4) M/mm3 Hgb 12.4 (12.0-16.0) gm/dl Hct 39.2 (35-47) % MCV 77.9 L (78-100) fl MCH 24.7 L (26-32) pg MCHC 31.6 L (32-36) g/dl RDW 16.7 H (11.5-14.0) % Plt Count 304 (150-450) K/mm3 MPV 11.2 H (6-9.5) fl Gran % 74.9 H (36.0-66.0) % Eos # (Auto) 0.06 (0-0.5) Absolute Lymphs (auto) 2.90 (1.0-4.6) Absolute Monos (auto) 1.47 H (0.0-1.3) Lymphocytes % 16.4 L (24.0-44.0) % Monocytes % 8.3 (0.0-12.0) % Eosinophils % 0.3 (0.00-5.0) % Basophils % 0.1 (0.0-0.4) % Absolute Granulocytes 13.26 H (1.4-6.9) Basophils # 0.02 (0-0.4) Sodium (137-145) mmol/L Potassium (3.5-5.1) mmol/L Chloride (98-107) mmol/L Carbon Dioxide (22-30) mmol/L Anion Gap (5-15) MEQ/L BUN (7-17) mg/dL Creatinine (0.52-1.04) mg/dL Estimated GFR ML/MIN Glucose (74-106) mg/dL Calcium (8.4-10.2) mg/dL Total Bilirubin (0.2-1.3) mg/dL AST (14-36) U/L ALT (0-35) U/L Alkaline Phosphatase (38-126) U/L Troponin I (0.000-0.034) ng/mL Serum Total Protein (6.3-8.2) g/dL Albumin (3.5-5.0) g/dL Lipase (23-300) U/L Urine Color YELLOW (YELLOW) Urine Appearance CLEAR (CLEAR) Urine pH 7.0 (5-6) Ur Specific [place] 14 (1.005-1.025) Urine Protein NEGATIVE (Negative) Urine Ketones NEGATIVE (NEGATIVE) Urine Blood NEGATIVE (0-5) Robby/ul Urine Nitrite NEGATIVE (NEGATIVE) Urine Bilirubin NEGATIVE (NEGATIVE) Urine Urobilinogen NORMAL (0-1) mg/dL Ur Leukocyte Esterase NEGATIVE (NEGATIVE) Urine WBC (Auto) 3-5 (0-5) /HPF Urine RBC (Auto) NONE SEEN (0-2) /HPF U Epithel Cells (Auto) RARE (FEW) /HPF Urine Bacteria (Auto) NONE SEEN (NEGATIVE) /HPF Urine Mucus (Auto) SLIGHT (NEGATIVE) /HPF Urine Culture Reflexed NO (NO) Urine Glucose NEGATIVE (NEGATIVE) mg/dL <ENIO ARELLANO - Last Filed: 03/09/18 19:31> - Progress Progress: improved <MILLIEDIANE - Last Filed: 03/11/18 07:09> - Progress Progress Note: 03/09/18 19:30 Pt care discussed and care transferred to Dr Barth at 19:00. (ENIO ARELLANO) 03/09/18 20:38 This is a 42-year-old white female with history of diabetes, bipolar disorder, implantable glucose monitor, arrhythmia, hypercholesterolemia, pulmonary embolism, hypothyroidism, anxiety, depression she arrives with complaint of left upper quadrant abdominal pain going on for 30 minutes prior to arrival She also states that her blood sugars have been going from 300 to 60 all day. She has had some nauseous and has no shortness of breath no no chest pain. Patient initially seen by Dr. Arellano, patient has been given IV normal saline Zofran and morphine/ Patient at this time is stable Physical examination well-developed well-nourished white female alert oriented 3 head atraumatic normocephalic. Eyes PERRLA EOMI fundi unremarkable. Ears TMs oneil intact bilaterally Nose is clear throat is clear neck is supple. Lungs are clear. Heart regular rate and rhythm without murmur. Abdomen left upper quadrant tenderness positive bowel sounds negative masses negative rebound. Extremities full range of motion pulse equal symmetrical 2 over 4. Neuro cranial nerves II through XII are intact DTRs symmetrical equal 2 over 4 [place] Coma Scale is 15. EKG sinus arrhythmia with artifact and one PVC noted. Normal axis no acute ST or T wave changes are noted KUB nonspecific abdominal pattern. Labs white count is elevated at 7.7 hemoglobin 12.4 hematocrit 39.2 platelets 304 chemistry Sodium 141 potassium 3.9 chloride 105 bicarbonate 26 BUN 13 creatinine 0.57 glucose 67. Anion gap is 13.8 lipase is 61 urinalysis 3-5 white cells negative nitrates negative leukocyte esterase negative ketones. Patient's vitals are stable. Patient was noted to have an Accu-Chek of 58 she is given one half amp of D50. Will await patient's troponin. . .. . 03/09/18 21:48 Patient's blood sugars are down to 70 again Patient's troponin is normal patient in no acute distress. I've discussed the patient's case with Dr. Gutierrez will place patient on observation will give patient an amp of D50 here in the emergency room place her on IV D5 half normal saline to run at 100 mL per hour. Accu-Cheks every hour 4 until stable and every 4 hours. CBC CMP in the morning. (DIANE BARTH) <ENIO ARELLANO - Last Filed: 03/09/18 19:31> - Departure Time of Disposition: 22:00 Departure Disposition: Observation Critical Care Time: No <DIANE BARTH - Last Filed: 03/11/18 07:09> - Departure Clinical Impression: Hypoglycemia Abdominal pain Qualifiers: Abdominal location: left upper quadrant Qualified Code(s): R10.12 - Left upper quadrant pain Condition: Fair
[2018-03-09 19:24] LABS: Appearance CLEAR (CLEAR); Bilirubin NEGATIVE (NEGATIVE); Blood NEGATIVE Ery/ul (0-5); Glucose NEGATIVE (NEGATIVE); Ketones NEGATIVE (NEGATIVE); Leukocyte Esterase NEGATIVE (NEGATIVE); Nitrite NEGATIVE (NEGATIVE); Protein,Urine Dip NEGATIVE (Negative); Specific Gravity 14 (1.005-1.025); Urobilinogen NORMAL mg/dL (0-1)
[2018-03-09] MEDS ORDERED: D50W 50 ml Abboject IV ONE ×5 (20:00→21:53)
[2018-03-09] MEDS ORDERED: D50W 50ML Vial IV ONE (20:01)
[2018-03-09 20:03] LABS: BASOPHIL % 0.1 % (0.0-0.4); Basophil (Absolute #) 0.02 (0-0.4); Eosinophil % 0.3 % (0.00-5.0); Eosinophil (Absolute #) 0.06 (0-0.5); Granulocyte Absolute (ANC) 13.26 (1.4-6.9); Granulocytes % 74.9 % (36.0-66.0); Hematocrit 39.2 % (35-47); Hemoglobin 12.4 gm/dl (12.0-16.0); Lymphocytes % 16.4 % (24.0-44.0); Mean Cell Volume 77.9 fl (78-100); Mean Corpuscular Hemoglobin 24.7 pg (26-32); Mean Corpuscular Hgb Concent. 31.6 g/dl (32-36); Mean Platelet Volume 11.2 fl (6-9.5); Monocyte (Absolute #) 1.47 (0.0-1.3); Monocytes % 8.3 % (0.0-12.0); Platelet Count 304 K/mm3 (150-450); Red Blood Count 5.03 M/mm3 (4.1-5.4); Red Cell Distribution Width 16.7 % (11.5-14.0); White Blood Count 17.7 K/mm3 (4.0-10.5)
[2018-03-09 20:29] LABS: ALBUMIN 4.4 g/dL (3.5-5.0); ALKALINE PHOSPHATASE 171 U/L (38-126); ANION GAP 13.8 MEQ/L (5-15); BLOOD UREA NITROGEN 13 mg/dL (7-17); CHLORIDE 105 mmol/L (98-107); Calcium 8.9 mg/dL (8.4-10.2); Carbon Dioxide 26 mmol/L (22-30); Creatinine 1 0.57 mg/dL (0.52-1.04); Glucose 67 mg/dL (74-106); LIPASE 61 U/L (23-300); Potassium 3.9 mmol/L (3.5-5.1); SGOT/AST 52 U/L (14-36); SGPT/ALT 26 U/L (0-35); SODIUM 141 mmol/L (137-145)
--- NOTE | 2018-03-09 21:35 | XRAY ---
Indication: Left chest pain. Comparison: December 11, 2017. PA/lateral chest again demonstrates normal heart, lungs, and bony thorax.
--- NOTE | 2018-03-09 21:38 | XRAY ---
Indication: Left abdomen pain and nausea. Comparison: None KUB nonacute and nonobstructed with cholecystectomy clips and IVC filter. Solid organs and osseous structures unremarkable. Lung bases clear. Impression: Negative KUB.
[2018-03-09] MEDS ORDERED: Dextrose 5% -0.45 NaCl 1000 ML 1,000 ML IV SCH (22:45)
[2018-03-09] MEDS ORDERED: Dextrose 5% -0.45 NaCl 1000 ML 1,000 ML IV ONE (23:31)
[2018-03-09] MEDS: D50W 50 ml Abboject IV PRN (23:40)
[2018-03-10] MEDS: D50W 50 ml Abboject IV PRN ×6 (01:09→16:09)
[2018-03-10] MEDS: Zofran 4 MG/2 ML VIAL IV PRN ×3 (02:04→22:47)
[2018-03-10] MEDS: MORPHINE SULFATE 4 MG INJ IV PRN ×6 (02:04→22:47)
[2018-03-10 06:17] LABS: BASOPHIL % 0.1 % (0.0-0.4); Basophil (Absolute #) 0.01 (0-0.4); Eosinophil % 1.3 % (0.00-5.0); Eosinophil (Absolute #) 0.12 (0-0.5); Granulocyte Absolute (ANC) 5.74 (1.4-6.9); Granulocytes % 63.1 % (36.0-66.0); Hematocrit 32.4 % (35-47); Hemoglobin 10.4 gm/dl (12.0-16.0); Lymphocyte (Absolute #) 2.24 (1.0-4.6); Lymphocytes % 24.6 % (24.0-44.0); Mean Cell Volume 79.4 fl (78-100); Mean Corpuscular Hgb Concent. 32.1 g/dl (32-36); Mean Platelet Volume 11.8 fl (6-9.5); Monocyte (Absolute #) 0.99 (0.0-1.3); Monocytes % 10.9 % (0.0-12.0); Platelet Count 204 K/mm3 (150-450); Red Blood Count 4.08 M/mm3 (4.1-5.4); Red Cell Distribution Width 16.7 % (11.5-14.0); White Blood Count 9.1 K/mm3 (4.0-10.5)
[2018-03-10 06:23] LABS: Mean Corpuscular Hemoglobin 25.4 pg (26-32)
[2018-03-10 06:33] LABS: ALBUMIN 3.5 g/dL (3.5-5.0); ALKALINE PHOSPHATASE 141 U/L (38-126); ANION GAP 9.9 MEQ/L (5-15); BLOOD UREA NITROGEN 10 mg/dL (7-17); CHLORIDE 104 mmol/L (98-107); Calcium 8.4 mg/dL (8.4-10.2); Carbon Dioxide 28 mmol/L (22-30); Creatinine 1 0.61 mg/dL (0.52-1.04); Glucose 121 mg/dL (74-106); Potassium 3.6 mmol/L (3.5-5.1); SGOT/AST 54 U/L (14-36); SGPT/ALT 28 U/L (0-35); SODIUM 138 mmol/L (137-145); Total Protein 5.8 g/dL (6.3-8.2)
[2018-03-10] MEDS: Dextrose 5% -0.45 NaCl 1000 ML 1,000 ML IV SCH ×3 (09:02→22:45)
[2018-03-10] MEDS ORDERED: Glutose 15 GM ORAL GEL PO ONE (12:02)
--- NOTE | 2018-03-10 12:45 | PCM.HP ---
History of Present Illness - Chief Complaint Chief Complaint: Hypoglycemia History of Present Illness: is a 42 year old female pt with no local MD (visiting from [place] ) with DM, bipolar d/o, hx SVT, hx PE x 4, hypothyroidism, and ovarian cyst on R who came to ER yesterday c/o LUQ and L sided chest pain. The pain is actually at the inferior 2 ribs on the L, radiates into the back, 8/10 (down to 3/10 with pain meds), sharp, constant. Having some nausea (although some of this she attributes to not having had her lamictal today) and some palpitations. No SOB. She has an implantable blood glucose monitor on her abdomen that she placed at home with her , called [employer], and she was told not to get a CT with this device in place so a KUB was done (verbal results ; non acute). Her WBC on admission were 17.1, and this morning are 9.1. She is still having the LUQ/L lower chest pain. Troponins neg x 6. She apparently has intermittent asymptomatic hypoglycemia. Yesterday she noted her BS was 129 when she got to [place] and 50 when she reached the ER. Since admission she has had several blood sugars into the 40s and has required glucose gel despite having dextrose in her IV fluids. - Review of Systems Neurological: Dizziness (yesterday with her higher blood sugars) Psychological: Anxiety, Depression, No Suicidal Ideations Medications & Allergies Home Medications: Home Medication List Atorvastatin Calcium 80 mg PO HS 06/22/17 [History Confirmed 03/10/18] Levothyroxine Sodium 50 Mcg [Synthroid 50 Mcg] 1 - 2 tab PO UD 06/22/17 [ History Confirmed 03/10/18] Rivaroxaban [Xarelto] 20 mg PO QHS 06/22/17 [History Confirmed 03/10/18] Vortioxetine Hydrobromide [Trintellix] 20 mg PO QAM 06/22/17 [History Confirmed 03/10/18] cloNIDine [Clonidine] 0.2 mg TOP WEEKLY 06/22/17 [History Confirmed 03/09/18] lamoTRIgine [Lamictal] 200 mg PO BID 06/22/17 [History Confirmed 03/09/18] Aripiprazole 10 mg [Abilify 10 MG] 15 mg PO QAM 03/09/18 [History Confirmed 03/09/18] Clonazepam 0.5 mg PO HS 03/09/18 [History Confirmed 03/09/18] Insulin Aspart [NovoLOG Insulin] 0 unit SQ AC 03/09/18 [History Confirmed ] Insulin Aspart [NovoLOG Insulin] 5 unit SQ AC 03/09/18 [History Confirmed ] Insulin Glargine [Lantus Insulin] 14 unit SQ QAM 03/09/18 [History Confirmed 03/09/18] OLANZapine [Zyprexa] 15 mg PO HS 03/09/18 [History Confirmed 03/09/18] Allergies/Adverse Reactions: Allergies Allergy/AdvReac Type Severity Reaction Status Date / Time acetaminophen [From Percocet] Allergy Verified 03/09/18 23:50 diazepam [From Valium] Allergy Verified 03/09/18 23:50 hydrocodone [From Roberts] Allergy Verified 03/09/18 23:50 Iodinated Contrast- Oral and Allergy Verified 03/09/18 23:50 IV Dye ketorolac [From Toradol] Allergy Verified 03/09/18 23:50 oxycodone [From Percocet] Allergy Verified 03/09/18 23:50 Sulfa (Sulfonamide Allergy Verified 03/09/18 23:50 Antibiotics) tramadol [From Ultram] Allergy Verified 03/09/18 23:50 - Past Medical History Past Medical History: Yes Neurological History: No Pertinent History ENT History: No Pertinent History Cardiac History: Arrhythmia, High Cholesterol Respiratory History: Pulmonary Embolism Endocrine Medical History: Diabetes Type II, Hypothyroidism Musculoskelatal History: No Pertinent History GI Medical History: No Pertinent History History: No Pertinent History Pyscho-Social History: Anxiety, Depression Reproductive Disorders: Other Comment: SVT, BLOOD CLOTS, blood clots , ovarian cysts - Female History Hx Last Menstrual Period: hyster Are you now?: No - Past Surgical History Past Surgical History: Yes Neuro Surgical History: No Pertinent History Cardiac History: Other Respiratory Surgery: No Pertinent History GI Surgical History: Cholecystectomy Genitourinary Surgical Hx: No Pertinent History Female Surgical History: Hysterectomy, Section Other Surgical History: ablation x3, IVC filter placement - Social History Smoking Status: Never smoker Exposure to second hand smoke: No Alcohol: None Drug Use: none - Physical Exam Vital Signs: Vital Signs - 24 hr Temp Pulse Pulse Resp BP Pulse Ox 03/10/18 11:45 98.5 F 65 18 115/68 99 03/10/18 08:00 97.6 F 60 17 114/55 98 03/10/18 04:05 98.1 F 63 16 118/58 99 03/10/18 00:11 98.1 F 72 16 146/67 97 03/09/18 22:50 138/83 98 03/09/18 22:02 76 16 144/82 97 03/09/18 21:40 88 18 120/87 97 03/09/18 20:57 73 16 146/83 98 03/09/18 20:40 67 146/83 97 03/09/18 19:40 85 20 146/83 98 03/09/18 19:33 99 03/09/18 18:22 96 H 16 154/85 96 03/09/18 18:08 82 16 138/84 99 03/09/18 17:19 97.6 F 87 87 16 161/97 100 Results - Labs Lab/Micro Results: Accuchecks Date 03/10/18 Date 03/10/18 Date 03/10/18 Date 03/10/18 Date 03/10/18 Date 03/10/18 Date 03/10/18 Date 03/10/18 Date 03/10/18 Date 03/10/18 Date 03/09/18 Time 09:00 Time 08:00 Time 07:00 Time 06:10 Time 05:50 Time 05:00 Time 04:00 Time 03:03 Time 01:10 Time 00:00 Time 23:30 Accucheck Value: 81 Accucheck Value: 115 Accucheck Value: 92 Accucheck Value: 51 Accucheck Value: 82 Accucheck Value: 93 Accucheck Value: 51 Accucheck Value: 51 Accucheck Value: 52 Accucheck Value: 103 Accucheck Value: 70 Accucheck Value: 195 Accucheck Value: 58 Lab Results-Last 24 Hours 03/09/18 03/09/18 03/09/18 Range/Units 18:48 19:50 19:50 WBC 17.7 H (4.0-10.5) K/mm3 RBC 5.03 (4.1-5.4) M/mm3 Hgb 12.4 (12.0-16.0) gm/dl Hct 39.2 (35-47) % MCV 77.9 L (78-100) fl MCH 24.7 L (26-32) pg MCHC 31.6 L (32-36) g/dl RDW 16.7 H (11.5-14.0) % Plt Count 304 (150-450) K/mm3 MPV 11.2 H (6-9.5) fl Gran % 74.9 H (36.0-66.0) % Eos # (Auto) 0.06 (0-0.5) Absolute Lymphs (auto) 2.90 (1.0-4.6) Absolute Monos (auto) 1.47 H (0.0-1.3) Lymphocytes % 16.4 L (24.0-44.0) % Monocytes % 8.3 (0.0-12.0) % Eosinophils % 0.3 (0.00-5.0) % Basophils % 0.1 (0.0-0.4) % Absolute Granulocytes 13.26 H (1.4-6.9) Basophils # 0.02 (0-0.4) Sodium 141 (137-145) mmol/L Potassium 3.9 (3.5-5.1) mmol/L Chloride 105 (98-107) mmol/L Carbon Dioxide 26 (22-30) mmol/L Anion Gap 13.8 (5-15) MEQ/L BUN 13 (7-17) mg/dL Creatinine 0.57 (0.52-1.04) mg/dL Estimated GFR > 60.0 ML/MIN Glucose 67 L (74-106) mg/dL Hemoglobin A1c (4.5-6.0) % Calcium 8.9 (8.4-10.2) mg/dL Total Bilirubin 0.20 (0.2-1.3) mg/dL AST 52 H (14-36) U/L ALT 26 (0-35) U/L Alkaline Phosphatase 171 H (38-126) U/L Troponin I (0.000-0.034) ng/mL Serum Total Protein 7.0 (6.3-8.2) g/dL Albumin 4.4 (3.5-5.0) g/dL Lipase 61 (23-300) U/L Urine Color YELLOW (YELLOW) Urine Appearance CLEAR (CLEAR) Urine pH 7.0 (5-6) Ur Specific [place] 14 (1.005-1.025) Urine Protein NEGATIVE (Negative) Urine Ketones NEGATIVE (NEGATIVE) Urine Blood NEGATIVE (0-5) Robby/ul Urine Nitrite NEGATIVE (NEGATIVE) Urine Bilirubin NEGATIVE (NEGATIVE) Urine Urobilinogen NORMAL (0-1) mg/dL Ur Leukocyte Esterase NEGATIVE (NEGATIVE) Urine WBC (Auto) 3-5 (0-5) /HPF Urine RBC (Auto) NONE SEEN (0-2) /HPF U Epithel Cells (Auto) RARE (FEW) /HPF Urine Bacteria (Auto) NONE SEEN (NEGATIVE) /HPF Urine Mucus (Auto) SLIGHT (NEGATIVE) /HPF Urine Culture Reflexed NO (NO) Urine Glucose NEGATIVE (NEGATIVE) mg/dL 03/09/18 03/09/18 03/10/18 Range/Units 19:50 21:35 00:01 WBC (4.0-10.5) K/mm3 RBC (4.1-5.4) M/mm3 Hgb (12.0-16.0) gm/dl Hct (35-47) % MCV (78-100) fl MCH (26-32) pg MCHC (32-36) g/dl RDW (11.5-14.0) % Plt Count (150-450) K/mm3 MPV (6-9.5) fl Gran % (36.0-66.0) % Eos # (Auto) (0-0.5) Absolute Lymphs (auto) (1.0-4.6) Absolute Monos (auto) (0.0-1.3) Lymphocytes % (24.0-44.0) % Monocytes % (0.0-12.0) % Eosinophils % (0.00-5.0) % Basophils % (0.0-0.4) % Absolute Granulocytes (1.4-6.9) Basophils # (0-0.4) Sodium (137-145) mmol/L Potassium (3.5-5.1) mmol/L Chloride (98-107) mmol/L Carbon Dioxide (22-30) mmol/L Anion Gap (5-15) MEQ/L BUN (7-17) mg/dL Creatinine (0.52-1.04) mg/dL Estimated GFR ML/MIN Glucose (74-106) mg/dL Hemoglobin A1c (4.5-6.0) % Calcium (8.4-10.2) mg/dL Total Bilirubin (0.2-1.3) mg/dL AST (14-36) U/L ALT (0-35) U/L Alkaline Phosphatase (38-126) U/L Troponin I < 0.012 < 0.012 < 0.012 (0.000-0.034) ng/mL Serum Total Protein (6.3-8.2) g/dL Albumin (3.5-5.0) g/dL Lipase (23-300) U/L Urine Color (YELLOW) Urine Appearance (CLEAR) Urine pH (5-6) Ur Specific [place] (1.005-1.025) Urine Protein (Negative) Urine Ketones (NEGATIVE) Urine Blood (0-5) Robby/ul Urine Nitrite (NEGATIVE) Urine Bilirubin (NEGATIVE) Urine Urobilinogen (0-1) mg/dL Ur Leukocyte Esterase (NEGATIVE) Urine WBC (Auto) (0-5) /HPF Urine RBC (Auto) (0-2) /HPF U Epithel Cells (Auto) (FEW) /HPF Urine Bacteria (Auto) (NEGATIVE) /HPF Urine Mucus (Auto) (NEGATIVE) /HPF Urine Culture Reflexed (NO) Urine Glucose (NEGATIVE) mg/dL 03/10/18 03/10/18 03/10/18 Range/Units 00:01 03:30 05:00 WBC (4.0-10.5) K/mm3 RBC (4.1-5.4) M/mm3 Hgb (12.0-16.0) gm/dl Hct (35-47) % MCV (78-100) fl MCH (26-32) pg MCHC (32-36) g/dl RDW (11.5-14.0) % Plt Count (150-450) K/mm3 MPV (6-9.5) fl Gran % (36.0-66.0) % Eos # (Auto) (0-0.5) Absolute Lymphs (auto) (1.0-4.6) Absolute Monos (auto) (0.0-1.3) Lymphocytes % (24.0-44.0) % Monocytes % (0.0-12.0) % Eosinophils % (0.00-5.0) % Basophils % (0.0-0.4) % Absolute Granulocytes (1.4-6.9) Basophils # (0-0.4) Sodium (137-145) mmol/L Potassium (3.5-5.1) mmol/L Chloride (98-107) mmol/L Carbon Dioxide (22-30) mmol/L Anion Gap (5-15) MEQ/L BUN (7-17) mg/dL Creatinine (0.52-1.04) mg/dL Estimated GFR ML/MIN Glucose 96 (74-106) mg/dL Hemoglobin A1c 9.15 H (4.5-6.0) % Calcium (8.4-10.2) mg/dL Total Bilirubin (0.2-1.3) mg/dL AST (14-36) U/L ALT (0-35) U/L Alkaline Phosphatase (38-126) U/L Troponin I < 0.012 (0.000-0.034) ng/mL Serum Total Protein (6.3-8.2) g/dL Albumin (3.5-5.0) g/dL Lipase (23-300) U/L Urine Color (YELLOW) Urine Appearance (CLEAR) Urine pH (5-6) Ur Specific [place] (1.005-1.025) Urine Protein (Negative) Urine Ketones (NEGATIVE) Urine Blood (0-5) Robby/ul Urine Nitrite (NEGATIVE) Urine Bilirubin (NEGATIVE) Urine Urobilinogen (0-1) mg/dL Ur Leukocyte Esterase (NEGATIVE) Urine WBC (Auto) (0-5) /HPF Urine RBC (Auto) (0-2) /HPF U Epithel Cells (Auto) (FEW) /HPF Urine Bacteria (Auto) (NEGATIVE) /HPF Urine Mucus (Auto) (NEGATIVE) /HPF Urine Culture Reflexed (NO) Urine Glucose (NEGATIVE) mg/dL 03/10/18 03/10/18 03/10/18 Range/Units 06:07 06:07 06:07 WBC 9.1 (4.0-10.5) K/mm3 RBC 4.08 L (4.1-5.4) M/mm3 Hgb 10.4 L (12.0-16.0) gm/dl Hct 32.4 L (35-47) % MCV 79.4 (78-100) fl MCH 25.4 L (26-32) pg MCHC 32.1 (32-36) g/dl RDW 16.7 H (11.5-14.0) % Plt Count 204 (150-450) K/mm3 MPV 11.8 H (6-9.5) fl Gran % 63.1 (36.0-66.0) % Eos # (Auto) 0.12 (0-0.5) Absolute Lymphs (auto) 2.24 (1.0-4.6) Absolute Monos (auto) 0.99 (0.0-1.3) Lymphocytes % 24.6 (24.0-44.0) % Monocytes % 10.9 (0.0-12.0) % Eosinophils % 1.3 (0.00-5.0) % Basophils % 0.1 (0.0-0.4) % Absolute Granulocytes 5.74 (1.4-6.9) Basophils # 0.01 (0-0.4) Sodium 138 (137-145) mmol/L Potassium 3.6 (3.5-5.1) mmol/L Chloride 104 (98-107) mmol/L Carbon Dioxide 28 (22-30) mmol/L Anion Gap 9.9 (5-15) MEQ/L BUN 10 (7-17) mg/dL Creatinine 0.61 (0.52-1.04) mg/dL Estimated GFR > 60.0 ML/MIN Glucose 121 H (74-106) mg/dL Hemoglobin A1c (4.5-6.0) % Calcium 8.4 (8.4-10.2) mg/dL Total Bilirubin 0.10 L (0.2-1.3) mg/dL AST 54 H (14-36) U/L ALT 28 (0-35) U/L Alkaline Phosphatase 141 H (38-126) U/L Troponin I < 0.012 (0.000-0.034) ng/mL Serum Total Protein 5.8 L (6.3-8.2) g/dL Albumin 3.5 (3.5-5.0) g/dL Lipase (23-300) U/L Urine Color (YELLOW) Urine Appearance (CLEAR) Urine pH (5-6) Ur Specific [place] (1.005-1.025) Urine Protein (Negative) Urine Ketones (NEGATIVE) Urine Blood (0-5) Robby/ul Urine Nitrite (NEGATIVE) Urine Bilirubin (NEGATIVE) Urine Urobilinogen (0-1) mg/dL Ur Leukocyte Esterase (NEGATIVE) Urine WBC (Auto) (0-5) /HPF Urine RBC (Auto) (0-2) /HPF U Epithel Cells (Auto) (FEW) /HPF Urine Bacteria (Auto) (NEGATIVE) /HPF Urine Mucus (Auto) (NEGATIVE) /HPF Urine Culture Reflexed (NO) Urine Glucose (NEGATIVE) mg/dL 03/10/18 Range/Units 12:25 WBC (4.0-10.5) K/mm3 RBC (4.1-5.4) M/mm3 Hgb (12.0-16.0) gm/dl Hct (35-47) % MCV (78-100) fl MCH (26-32) pg MCHC (32-36) g/dl RDW (11.5-14.0) % Plt Count (150-450) K/mm3 MPV (6-9.5) fl Gran % (36.0-66.0) % Eos # (Auto) (0-0.5) Absolute Lymphs (auto) (1.0-4.6) Absolute Monos (auto) (0.0-1.3) Lymphocytes % (24.0-44.0) % Monocytes % (0.0-12.0) % Eosinophils % (0.00-5.0) % Basophils % (0.0-0.4) % Absolute Granulocytes (1.4-6.9) Basophils # (0-0.4) Sodium (137-145) mmol/L Potassium (3.5-5.1) mmol/L Chloride (98-107) mmol/L Carbon Dioxide (22-30) mmol/L Anion Gap (5-15) MEQ/L BUN (7-17) mg/dL Creatinine (0.52-1.04) mg/dL Estimated GFR ML/MIN Glucose 59 L (74-106) mg/dL Hemoglobin A1c (4.5-6.0) % Calcium (8.4-10.2) mg/dL Total Bilirubin (0.2-1.3) mg/dL AST (14-36) U/L ALT (0-35) U/L Alkaline Phosphatase (38-126) U/L Troponin I (0.000-0.034) ng/mL Serum Total Protein (6.3-8.2) g/dL Albumin (3.5-5.0) g/dL Lipase (23-300) U/L Urine Color (YELLOW) Urine Appearance (CLEAR) Urine pH (5-6) Ur Specific [place] (1.005-1.025) Urine Protein (Negative) Urine Ketones (NEGATIVE) Urine Blood (0-5) Robby/ul Urine Nitrite (NEGATIVE) Urine Bilirubin (NEGATIVE) Urine Urobilinogen (0-1) mg/dL Ur Leukocyte Esterase (NEGATIVE) Urine WBC (Auto) (0-5) /HPF Urine RBC (Auto) (0-2) /HPF U Epithel Cells (Auto) (FEW) /HPF Urine Bacteria (Auto) (NEGATIVE) /HPF Urine Mucus (Auto) (NEGATIVE) /HPF Urine Culture Reflexed (NO) Urine Glucose (NEGATIVE) mg/dL Accuchecks Date 03/10/18 Date 03/10/18 Date 03/10/18 Date 03/10/18 Date 03/10/18 Date 03/10/18 Date 03/10/18 Date 03/10/18 Date 03/10/18 Date 03/10/18 Date 03/09/18 Time 09:00 Time 08:00 Time 07:00 Time 06:10 Time 05:50 Time 05:00 Time 04:00 Time 03:03 Time 01:10 Time 00:00 Time 23:30 Accucheck Value: 81 Accucheck Value: 115 Accucheck Value: 92 Accucheck Value: 51 Accucheck Value: 82 Accucheck Value: 93 Accucheck Value: 51 Accucheck Value: 51 Accucheck Value: 52 Accucheck Value: 103 Accucheck Value: 70 Accucheck Value: 195 Accucheck Value: 58 - Radiology Impressions Radiology Exams & Impressions: Radiology Procedures Category Date Time Status CHEST 2 VIEWS (PA AND LAT) Stat Exams 03/09/18 18:08 Completed KUB Stat Exams 03/09/18 19:11 Completed Assessment/Plan (1) Abdominal pain Current Visit: Yes Status: Acute Qualifiers: Abdominal location: left upper quadrant Qualified Code(s): R10.12 - Left upper quadrant pain Assessment & Plan: Not improved after admission, although her WBC have decreased from 17.1 to 9.1 this morning. Pt needs a CT abd/pelvis with IV and po contrast (will need pre- treatment with benadryl for the IV contrast). We are calling the [employer] to see if she can have a CT scan with her monitor in place. Code(s): R10.9 - UNSPECIFIED ABDOMINAL PAIN (2) Hypoglycemia Current Visit: Yes Status: Acute Assessment & Plan: I increased her fluids to 150cc/hr - she is still having hypoglycemia. She denies taking extra insulin recently. May be related to intra-abdominal process so again we need the CT. Code(s): E16.2 - HYPOGLYCEMIA, UNSPECIFIED (3) Chest pain Current Visit: No Status: Acute Qualifiers: Chest pain type: other chest pain Qualified Code(s): R07.89 - Other chest pain; R07.8 - Other chest pain Assessment & Plan: IN ruled out with 6 negative troponins. EKG sinus rhythm with 1 PVC, no ST changes. Code(s): R07.9 - CHEST PAIN, UNSPECIFIED (4) HTN (hypertension) Current Visit: No Status: Acute Qualifiers: Hypertension type: essential hypertension Qualified Code(s): I10 - Essential (primary) hypertension Code(s): I10 - ESSENTIAL (PRIMARY) HYPERTENSION (5) History of pulmonary embolism Current Visit: No Status: Acute Assessment & Plan: on xarelto. She is planning to ask her PCP when she follows up if she needs tested for an underlying hypercoaguable state. Code(s): Z86.711 - PERSONAL HISTORY OF PULMONARY EMBOLISM (6) Diabetes mellitus Current Visit: Yes Status: Acute Qualifiers: Diabetes mellitus extermination inspector insulin use: with assisted use Diabetes mellitus complication status: with hypoglycemia Diabetes mellitus complication detail: without coma Code(s): E11.9 - TYPE 2 DIABETES MELLITUS WITHOUT COMPLICATIONS (7) Hx of supraventricular tachycardia Current Visit: Yes Status: Acute Assessment & Plan: had ablation x 3 Code(s): Z86.79 - PERSONAL HISTORY OF OTHER DISEASES OF THE CIRCULATORY SYSTEM
[2018-03-10] MEDS ORDERED: Glutose 15 GM ORAL GEL PO PRN (13:14)
[2018-03-10] MEDS ORDERED: MEDICATION INTERVENTION PO SCH (13:30)
[2018-03-10] MEDS ORDERED: Catapres-TTS 1 PATCH TOP SCH (14:00)
[2018-03-10] MEDS: BENADRYL 50 MG/ML IV PRN ×3 (14:12→23:03)
[2018-03-10] MEDS: SYNTHROID 50 MCG PO SCH (14:12)
[2018-03-10] MEDS: lamICTAL 100MG TABLET PO SCH ×2 (14:12→22:46)
[2018-03-10] MEDS: Abilify 10 MG PO SCH (14:12)
[2018-03-10] MEDS: solu-MEDROL 40 MG IV SCH ×3 (14:12→22:47)
--- NOTE | 2018-03-10 20:53 | XRAY ---
Indication: Upper abdomen pain and nausea. Multiple contiguous axial images obtained through the abdomen and pelvis prior to and following 80 cc Isovue 370 contrast. Enteric contrast also used. Comparison: None Lung bases demonstrates minimal left base fibrosis/scarring. No infiltrate or effusion. Heart is not enlarged. Noncontrasted images are negative for pathologic visceral calcification/calculi. Stomach is distended with contrast. Stomach and contrasted bowel loops appear nonobstructed. Normal appendix. Mild fecal debris in the ascending and transverse colon. Previous cholecystectomy, partial hysterectomy, and IVC filter in situ. No free fluid/air. Postcontrast images demonstrate normal visceral enhancement and renal excretion. Liver, pancreas, spleen, adrenal glands, kidneys, ureters, bladder, and aorta appear normal in CT appearance and attenuation. No pathologic retroperitoneal lymphadenopathy. Osseous structures intact. Anterior abdomen subcutaneous changes presumed iatrogenic. Impression: 1. Negative visceral calcifications/calculi. 2. Remaining CT abdomen/pelvis with and without contrast exam negative. Comment: Preliminary interpretation was made by [facility]. No discrepancy. CTDI 44.90
[2018-03-10] MEDS ORDERED: OLANZAPINE 15 MG PO SCH (22:00)
[2018-03-10] MEDS: zyPREXA 5MG TABLET PO SCH (22:46)
[2018-03-10] MEDS: XARELTO 10 MG TABLET PO SCH (22:46)
[2018-03-10] MEDS: Klonopin 0.5 MG PO SCH (22:46)
[2018-03-10] MEDS: ZOCOR 20MG PO SCH (22:47)
[2018-03-11] MEDS: solu-MEDROL 40 MG IV SCH ×2 (04:09→05:25)
[2018-03-11] MEDS: MORPHINE SULFATE 4 MG INJ IV PRN ×5 (04:13→15:24)
[2018-03-11] MEDS: Dextrose 5% -0.45 NaCl 1000 ML 1,000 ML IV SCH ×3 (05:20→19:45)
[2018-03-11] MEDS: BENADRYL 50 MG/ML IV PRN ×4 (05:20→22:16)
[2018-03-11 06:05] LABS: ALBUMIN 3.6 g/dL (3.5-5.0); ALKALINE PHOSPHATASE 145 U/L (38-126); ANION GAP 13.6 MEQ/L (5-15); BLOOD UREA NITROGEN 6 mg/dL (7-17); CHLORIDE 102 mmol/L (98-107); Carbon Dioxide 25 mmol/L (22-30); Creatinine 1 0.69 mg/dL (0.52-1.04); Glucose 256 mg/dL (74-106); Potassium 4.8 mmol/L (3.5-5.1); SGOT/AST 20 U/L (14-36); SGPT/ALT 26 U/L (0-35); SODIUM 136 mmol/L (137-145); Total Protein 5.9 g/dL (6.3-8.2)
[2018-03-11 06:15] LABS: BASOPHIL % 0.1 % (0.0-0.4); Basophil (Absolute #) 0.01 (0-0.4); Eosinophil (Absolute #) 0 (0-0.5); Granulocyte Absolute (ANC) 9.05 (1.4-6.9); Granulocytes % 91.6 % (36.0-66.0); Hematocrit 34.7 % (35-47); Hemoglobin 10.9 gm/dl (12.0-16.0); Lymphocyte (Absolute #) 0.69 (1.0-4.6); Mean Cell Volume 79.8 fl (78-100); Mean Corpuscular Hgb Concent. 31.4 g/dl (32-36); Mean Platelet Volume 11.3 fl (6-9.5); Monocyte (Absolute #) 0.13 (0.0-1.3); Monocytes % 1.3 % (0.0-12.0); Platelet Count 221 K/mm3 (150-450); Red Blood Count 4.35 M/mm3 (4.1-5.4); Red Cell Distribution Width 16.8 % (11.5-14.0); White Blood Count 9.9 K/mm3 (4.0-10.5)
--- NOTE | 2018-03-11 08:47 | PCM.NOTE ---
Date and Time: 03/11/18 0843 Subjective Assessment: Pt still having 9/10 LUQ pain and RLQ pain. Morphine helps for about 2 ours. She received IV steroid as pretreatment for the CT scan and her BS have been in the 200s up to 300 since then (checking q 2h). - Review of Systems Constitutional: No Fever Abdominal/Gastrointestinal: Abdominal Pain Objective Exam General Appearance: mild distress, anxiety Neurologic Exam: alert, oriented x 3, cooperative Skin Exam: normal color, warm, dry, No rash Ears, Nose, Throat Exam: moist mucous membranes Respiratory Exam: normal breath sounds, lungs clear, No crackles/rales, No rhonchi, No wheezing Cardiovascular Exam: regular rate/rhythm, normal heart sounds, No murmur Gastrointestinal/Abdomen Exam: soft, tenderness (LUQ > RLQ), No normal bowel sounds (hypoactive but present), No distention, No mass Extremity Exam: normal inspection, No pedal edema, No swelling Back Exam: normal inspection, No rash OBJECTIVE DATA Vital Signs: Vital Signs - 24 hr Temp Pulse Resp BP Pulse Ox 03/11/18 08:00 97.2 F 50 L 18 127/59 96 03/11/18 04:05 97.9 F 60 18 118/66 97 03/11/18 00:25 98.6 F 59 L 16 130/66 98 03/10/18 19:45 98.3 F 112 H 18 188/98 98 03/10/18 16:00 98.0 F 56 L 18 147/76 96 03/10/18 11:45 98.5 F 65 18 115/68 99 Pain Assessment - Last Documented Pain Intensity 9 Pain Scale Used 0-10 Pain Scale Intake and Output: Intake & Output 03/08/18 03/09/18 03/10/18 03/11/18 11:59 11:59 11:59 11:59 Intake Total 757 4841 Output Total 3900 Balance 757 941 Weight 93.7 kg 99 kg Lab Results: Accuchecks Date 03/11/18 Date 03/11/18 Date 03/11/18 Date 03/11/18 Date 03/11/18 Date 03/11/18 Date 03/11/18 Date 03/10/18 Date 03/10/18 Date 03/10/18 Date 03/10/18 Date 03/10/18 Date 03/10/18 Date 03/10/18 Date 03/10/18 Date 03/10/18 Date 03/10/18 Date 03/10/18 Date 03/10/18 Date 03/10/18 Date 03/10/18 Date 03/10/18 Time 07:00 Time 05:52 Time 05:00 Time 04:00 Time 03:00 Time 02:00 Time 00:00 Time 22:00 Time 21:00 Time 20:00 Time 19:00 Time 18:00 Time 18:00 Time 17:00 Time 16:40 Time 14:00 Time 15:00 Time 14:00 Time 12:35 Time 11:30 Time 09:00 Time 08:00 Accucheck Value: 267 Accucheck Value: 307 Accucheck Value: 271 Accucheck Value: 295 Accucheck Value: 276 Accucheck Value: 246 Accucheck Value: 273 Accucheck Value: 238 Accucheck Value: 238 Accucheck Value: 147 Accucheck Value: 147 Accucheck Value: 118 Accucheck Value: 130 Accucheck Value: 69 Accucheck Value: 78 Accucheck Value: 81 Accucheck Value: 135 Accucheck Value: 40 Accucheck Value: 81 Accucheck Value: 115 Lab Results-Last 24 Hours 03/10/18 03/10/18 03/11/18 Range/Units 05:00 12:25 05:15 WBC (4.0-10.5) K/mm3 RBC (4.1-5.4) M/mm3 Hgb (12.0-16.0) gm/dl Hct (35-47) % MCV (78-100) fl MCH (26-32) pg MCHC (32-36) g/dl RDW (11.5-14.0) % Plt Count (150-450) K/mm3 MPV (6-9.5) fl Gran % (36.0-66.0) % Eos # (Auto) (0-0.5) Absolute Lymphs (auto) (1.0-4.6) Absolute Monos (auto) (0.0-1.3) Lymphocytes % (24.0-44.0) % Monocytes % (0.0-12.0) % Eosinophils % (0.00-5.0) % Basophils % (0.0-0.4) % Absolute Granulocytes (1.4-6.9) Basophils # (0-0.4) Sodium (137-145) mmol/L Potassium (3.5-5.1) mmol/L Chloride (98-107) mmol/L Carbon Dioxide (22-30) mmol/L Anion Gap (5-15) MEQ/L BUN (7-17) mg/dL Creatinine (0.52-1.04) mg/dL Estimated GFR ML/MIN Glucose 59 L (74-106) mg/dL Hemoglobin A1c 9.15 H (4.5-6.0) % Calcium (8.4-10.2) mg/dL Total Bilirubin (0.2-1.3) mg/dL AST (14-36) U/L ALT (0-35) U/L Alkaline Phosphatase (38-126) U/L Serum Total Protein (6.3-8.2) g/dL Albumin (3.5-5.0) g/dL Amylase 41 (30-110) U/L 03/11/18 03/11/18 Range/Units 05:15 05:15 WBC 9.9 (4.0-10.5) K/mm3 RBC 4.35 (4.1-5.4) M/mm3 Hgb 10.9 L (12.0-16.0) gm/dl Hct 34.7 L (35-47) % MCV 79.8 (78-100) fl MCH 25.0 L (26-32) pg MCHC 31.4 L (32-36) g/dl RDW 16.8 H (11.5-14.0) % Plt Count 221 (150-450) K/mm3 MPV 11.3 H (6-9.5) fl Gran % 91.6 H (36.0-66.0) % Eos # (Auto) 0 (0-0.5) Absolute Lymphs (auto) 0.69 L (1.0-4.6) Absolute Monos (auto) 0.13 (0.0-1.3) Lymphocytes % 7.0 L (24.0-44.0) % Monocytes % 1.3 (0.0-12.0) % Eosinophils % 0.0 (0.00-5.0) % Basophils % 0.1 (0.0-0.4) % Absolute Granulocytes 9.05 H (1.4-6.9) Basophils # 0.01 (0-0.4) Sodium 136 L (137-145) mmol/L Potassium 4.8 (3.5-5.1) mmol/L Chloride 102 (98-107) mmol/L Carbon Dioxide 25 (22-30) mmol/L Anion Gap 13.6 (5-15) MEQ/L BUN 6 L (7-17) mg/dL Creatinine 0.69 (0.52-1.04) mg/dL Estimated GFR > 60.0 ML/MIN Glucose 256 H (74-106) mg/dL Hemoglobin A1c (4.5-6.0) % Calcium 9.0 (8.4-10.2) mg/dL Total Bilirubin 0.10 L (0.2-1.3) mg/dL AST 20 (14-36) U/L ALT 26 (0-35) U/L Alkaline Phosphatase 145 H (38-126) U/L Serum Total Protein 5.9 L (6.3-8.2) g/dL Albumin 3.6 (3.5-5.0) g/dL Amylase (30-110) U/L Radiology Exams: Radiology Procedures Category Date Time Status ABDOMEN AND PELVIS W&WO CONTRA [CT] Urgent Exams 03/10/18 13:44 Completed CHEST 2 VIEWS (PA AND LAT) Stat Exams 03/09/18 18:08 Completed KUB Stat Exams 03/09/18 19:11 Completed Assessment/Plan (1) Abdominal pain Current Visit: Yes Status: Acute Qualifiers: Abdominal location: left upper quadrant Qualified Code(s): R10.12 - Left upper quadrant pain Assessment & Plan: in LUQ and RLQ. Tender on exam, but no guarding or rebound. Has hx cholecystectomy. Adding protonix IV today. Consulting surgery today, thank you. Code(s): R10.9 - UNSPECIFIED ABDOMINAL PAIN (2) Hypoglycemia Current Visit: Yes Status: Acute Assessment & Plan: Improved after steroid - unsure when it may drop so will continue q2h BS for now. Code(s): E16.2 - HYPOGLYCEMIA, UNSPECIFIED (3) Chest pain Current Visit: No Status: Acute Qualifiers: Chest pain type: other chest pain Qualified Code(s): R07.89 - Other chest pain; R07.8 - Other chest pain Assessment & Plan: GA ruled out with neg troponins x 6. Code(s): R07.9 - CHEST PAIN, UNSPECIFIED (4) HTN (hypertension) Current Visit: No Status: Acute Qualifiers: Hypertension type: essential hypertension Qualified Code(s): I10 - Essential (primary) hypertension Code(s): I10 - ESSENTIAL (PRIMARY) HYPERTENSION (5) History of pulmonary embolism Current Visit: No Status: Acute Assessment & Plan: on xarelto Code(s): Z86.711 - PERSONAL HISTORY OF PULMONARY EMBOLISM (6) Diabetes mellitus Current Visit: Yes Status: Acute Qualifiers: Diabetes mellitus meterman insulin use: with long-term use Diabetes mellitus complication status: with hypoglycemia Diabetes mellitus complication detail: without coma Code(s): E11.9 - TYPE 2 DIABETES MELLITUS WITHOUT COMPLICATIONS (7) Hx of supraventricular tachycardia Current Visit: Yes Status: Acute Code(s): Z86.79 - PERSONAL HISTORY OF OTHER DISEASES OF THE CIRCULATORY SYSTEM
[2018-03-11] MEDS: lamICTAL 100MG TABLET PO SCH ×2 (09:43→21:34)
[2018-03-11] MEDS: Abilify 10 MG PO SCH (09:44)
[2018-03-11] MEDS: SYNTHROID 100 MCG PO SCH (09:45)
[2018-03-11] MEDS: PROTONIX 40 MG IV IV SCH (10:57)
[2018-03-11] MEDS ORDERED: NovoLOG Insulin SQ ONE (11:27)
--- NOTE | 2018-03-11 12:34 | CONS ---
CONSULT DATE: 03/11/2018 Yin Nava is correctional supervisor for our group today when the consult came in. I was asked to stop by and check on the patient. HISTORY: A 42 year-old female has had a couple day history of some left pain as she points. The left pain is mainly on the chest wall area and radiates back to her back. She denies any vomiting, denies any change in bowel movements or bloody stools. She denies any fever. She has been tolerating a diet with no change in the pain according to the patient, does not make it better or worse. PAST MEDICAL HISTORY: She had history of pulmonary embolism in the past. She has history of arrhythmia, hypercholesterolemia, diabetes type 2, hypothyroidism, obesity, anxiety and depression. History of supraventricular tachycardia in the past. History of some ovarian cysts in the past. Pancreatitis per the patient. PAST SURGICAL HISTORY: Cholecystectomy. Hysterectomy. section. Ablation in the past. MEDICATIONS: She had been on atorvastatin, levothyroxine, Xarelto, Trintellix, clonidine, Lamictal, Abilify, NovoLog, Zyprexa, clonazepam. ALLERGIES: PERCOCET. VALIUM. NORCO. TORADOL. SULFA. ULTRAM. IV CONTRAST. SOCIAL HISTORY: No smoking or alcohol abuse. REVIEW OF SYSTEMS: Twelve systems reviewed. Otherwise pertinent for as noted above. No new shortness of breath or palpitations. PHYSICAL EXAMINATION: Temperature 97.9F, pulse 60, blood pressure 118/66. GENERAL: No acute distress. HEENT: Sclera nonicteric. NECK: No JVD. CHEST: Equal excursion, nonlabored breathing. CVS: She is tender on left lower chest area more on the lower chest area, costal margin area rather than the abdomen. ABDOMEN: Quiet soft. No peritoneal signs. No palpable hernia. EXTREMITIES: No significant edema. NEURO: Alert, moving extremities grossly symmetrically. IMPRESSION: Left-sided lower chest area pain along the costal margin of unclear etiology whether musculoskeletal such as rib or muscle issue unclear versus referred pain from back versus other etiology. Chest x-ray did not show anything obvious but could consider doing a CT-angiogram to rule out any new pulmonary embolism that is causing the pain. Otherwise the CT of the abdomen was grossly unremarkable. No obvious acute findings to account for her aches and pains. There was some left base fibrosis, scarring but no obvious etiology. Otherwise, no obvious acute general surgical issues. She is not NPO. She is on Xarelto. She is not a candidate for any immediate endoscopy to rule out other etiology although like I said most of the pain is definitely in her chest wall area. Could check an upper GI study to evaluate for ulcer disease. Otherwise suggest considering ruling out pulmonary embolism and evaluate back issues or other musculoskeletal issues. No obvious acute general surgery necessary. If she has persistent pain and fails to improve at all could consider endoscopy but would have to be done when she is off of her blood thinners. Again, the patient is seen for Dr. Esqueda who was correctional supervisor for our group. He asked me to see the patient. No immediate general surgical intervention necessary. Continue medical management. Check upper GI study.
[2018-03-11] MEDS: FLAGYL 500 MG IVPB 500 MG/100 ML BAG IV SCH (17:17)
[2018-03-11] MEDS: SUBLIMAZE 100 MCG/2 ML IV PRN ×3 (17:20→22:16)
[2018-03-11] MEDS: Klonopin 0.5 MG PO SCH (21:34)
[2018-03-11] MEDS: ZOCOR 20MG PO SCH (21:35)
[2018-03-11] MEDS: XARELTO 10 MG TABLET PO SCH (21:35)
[2018-03-11] MEDS: zyPREXA 5MG TABLET PO SCH (21:35)
[2018-03-12] MEDS: FLAGYL 500 MG IVPB 500 MG/100 ML BAG IV SCH ×5 (00:15→23:46)
[2018-03-12] MEDS: SUBLIMAZE 100 MCG/2 ML IV PRN ×6 (00:16→21:14)
--- NOTE | 2018-03-12 08:26 | PCM.NOTE ---
Date and Time: 03/12/18820 Subjective Assessment: Pt tolerated po yesterday. Overnight she lost her IV; they replaced it and she got her meds at midnight then they lost the IV again and stuck her 14 times with no result. Pt asked them to keep trying but they waited and contacted the MANAGER ANIMAL this morning. Pt is c/o 10/10 LUQ pain right now. She is having upper GI this morning. Pt is asking if she can go home today. - Review of Systems Constitutional: No Fever Abdominal/Gastrointestinal: Abdominal Pain Objective Exam General Appearance: mild distress, alert, anxiety Neurologic Exam: oriented x 3, cooperative Skin Exam: normal color, warm, dry, No rash Ears, Nose, Throat Exam: moist mucous membranes Neck Exam: normal inspection Respiratory Exam: normal breath sounds, lungs clear, No crackles/rales, No rhonchi, No wheezing Cardiovascular Exam: regular rate/rhythm, normal heart sounds, No murmur Gastrointestinal/Abdomen Exam: soft, normal bowel sounds, tenderness (RLQ>LUQ), No distention, No mass, No guarding, No rebound Extremity Exam: normal inspection, No pedal edema, No swelling OBJECTIVE DATA Vital Signs: Vital Signs - 24 hr Temp Pulse Resp BP Pulse Ox 03/12/18 07:07 97.9 F 58 L 20 145/73 98 03/12/18 04:00 98.5 F 64 22 139/68 96 03/12/18 00:00 71 20 03/11/18 19:30 97.6 F 59 L 18 130/61 97 03/11/18 16:00 97.8 F 69 18 151/70 99 03/11/18 12:00 98 F 64 18 152/70 99 Pain Assessment - Last Documented Pain Intensity 10 Pain Scale Used [facility] Intake and Output: Intake & Output 03/09/18 03/10/18 03/11/18 03/12/18 11:59 11:59 11:59 11:59 Intake Total 757 4841 3650 Output Total 3900 3300 Balance 757 941 350 Weight 93.7 kg 99 kg 102.3 kg Lab Results: Accuchecks Date 03/12/18 Date 03/12/18 Date 03/12/18 Date 03/12/18 Date 03/11/18 Date 03/11/18 Date 03/11/18 Date 03/11/18 Date 03/11/18 Date 03/11/18 Time 06:00 Time 04:00 Time 02:00 Time 00:00 Time 22:00 Time 17:00 Time 15:00 Time 13:00 Time 11:00 Time 09:00 Accucheck Value: 181 Accucheck Value: 245 Accucheck Value: 276 Accucheck Value: 357 Accucheck Value: 356 Accucheck Value: 383 Accucheck Value: 333 Accucheck Value: 382 Accucheck Value: 364 Accucheck Value: 356 Radiology Exams: Radiology Procedures Category Date Time Status ABDOMEN AND PELVIS W&WO CONTRA [CT] Urgent Exams 03/10/18 13:44 Completed UPPER GI Routine Exams 03/12/18 09:00 Ordered Assessment/Plan (1) Abdominal pain Current Visit: Yes Status: Acute Qualifiers: Abdominal location: left upper quadrant Qualified Code(s): R10.12 - Left upper quadrant pain Assessment & Plan: Pain is persistent. CT was negative. Labs non acute. Surgery consulted and upper GI to be done today. If negative would consider discharging pt to home ( as long as she tolerates po) to f/u with her PCP in [facility] (Dr. Torres). Code(s): R10.9 - UNSPECIFIED ABDOMINAL PAIN (2) Hypoglycemia Current Visit: Yes Status: Chronic Assessment & Plan: BS have continued to be elevated since she got the steroid prior to CT scan. Code(s): E16.2 - HYPOGLYCEMIA, UNSPECIFIED (3) Chest pain Current Visit: No Status: Resolved Qualifiers: Chest pain type: other chest pain Qualified Code(s): R07.89 - Other chest pain; R07.8 - Other chest pain Code(s): R07.9 - CHEST PAIN, UNSPECIFIED (4) HTN (hypertension) Current Visit: No Status: Chronic Qualifiers: Hypertension type: essential hypertension Qualified Code(s): I10 - Essential (primary) hypertension Code(s): I10 - ESSENTIAL (PRIMARY) HYPERTENSION (5) History of pulmonary embolism Current Visit: No Status: Chronic Code(s): Z86.711 - PERSONAL HISTORY OF PULMONARY EMBOLISM (6) Diabetes mellitus Current Visit: Yes Status: Chronic Qualifiers: Diabetes mellitus retirement insulin use: with retirement use Diabetes mellitus complication status: with hypoglycemia Diabetes mellitus complication detail: without coma Code(s): E11.9 - TYPE 2 DIABETES MELLITUS WITHOUT COMPLICATIONS (7) Hx of supraventricular tachycardia Current Visit: Yes Status: Chronic Code(s): Z86.79 - PERSONAL HISTORY OF OTHER DISEASES OF THE CIRCULATORY SYSTEM
[2018-03-12] MEDS ORDERED: XYLOCAINE 1% HCL 20 ML MDV ONE (08:41)
[2018-03-12] MEDS: PROTONIX 40 MG IV IV SCH (09:13)
[2018-03-12] MEDS: BENADRYL 50 MG/ML IV PRN ×2 (09:34→15:54)
--- NOTE | 2018-03-12 10:11 | XRAY ---
Indication: Left abdominal pain. Comparison: None Double contrast upper GI study was performed. Patient ingested barium without miss swallow or aspiration. Esophagus is normal in course and caliber without filling defect or mucosal abnormality. No hiatal hernia. Barium freely emptied into the stomach. Contours of the lesser and greater curvature appears smooth. No acute ulcerations or filling defect. Normal appearing duodenal cap and sweep. No gastroesophageal reflux demonstrated. Impression: Negative double contrast upper GI exam. Approximately 1.4 minute fluoroscopy used.
[2018-03-12] MEDS: SYNTHROID 50 MCG PO SCH (10:47)
[2018-03-12] MEDS: lamICTAL 100MG TABLET PO SCH ×2 (10:47→21:15)
[2018-03-12] MEDS: Abilify 10 MG PO SCH (10:47)
[2018-03-12] MEDS: Dextrose 5% -0.45 NaCl 1000 ML 1,000 ML IV SCH ×2 (16:11→23:46)
[2018-03-12] MEDS: ZOCOR 20MG PO SCH (21:15)
[2018-03-12] MEDS: Klonopin 0.5 MG PO SCH (21:16)
[2018-03-12] MEDS: XARELTO 10 MG TABLET PO SCH (21:16)
[2018-03-12] MEDS: zyPREXA 5MG TABLET PO SCH (21:16)
[2018-03-13] MEDS: SUBLIMAZE 100 MCG/2 ML IV PRN ×3 (00:01→08:59)
[2018-03-13] MEDS: BENADRYL 50 MG/ML IV PRN (00:01)
[2018-03-13] MEDS: FLAGYL 500 MG IVPB 500 MG/100 ML BAG IV SCH (05:42)
[2018-03-13 07:26] VITALS: BP 135/63; PULSE 66; O2SAT 100
[2018-03-13] MEDS: Dextrose 5% -0.45 NaCl 1000 ML 1,000 ML IV SCH (07:41)
--- NOTE | 2018-03-13 09:02 | PCM.DS ---
Discharge Summary Date of Admission: 03/10/18 12:40 Admitting Physician: ANTELMO QUINN Consults: Consults on Case 03/11/18 08:42 Consult Surgery ROUTINE Primary Care Provider: PEDRO WEAVER Allergies Allergies acetaminophen [From Percocet] Allergy (Verified 03/09/18 23:50) diazepam [From Valium] Allergy (Verified 03/09/18 23:50) hydrocodone [From Fallon] Allergy (Verified 03/09/18 23:50) Iodinated Contrast- Oral and IV Dye Allergy (Verified 03/09/18 23:50) ketorolac [From Toradol] Allergy (Verified 03/09/18 23:50) oxycodone [From Percocet] Allergy (Verified 03/09/18 23:50) Sulfa (Sulfonamide Antibiotics) Allergy (Verified 03/09/18 23:50) tramadol [From Ultram] Allergy (Verified 03/09/18 23:50) Hospital Summary - Hospital Course Hospital Course: Pt is 42 yo female pt of Dr. Weaver in [place] who was in the area and admitted through the ER for abdominal pain. The pain was L lower ribs/LUQ and also in the RLQ. Initially a KUB was done, which was negative - due to her hypoglycemia monitor pt was not supposed to have MRI or CT scan. Troponins were negative x 5 and EKG was non acute. WBC 17,000. CMP nl. Amylase and lipase normal. The next day she still had abdominal pain so we did a CT abd/ pelvis with IV and po contrast which was negative. Pt was started on flagyl IV for possible intraabdominal infection since she came in with elevated WBC and pain was persistent. Also put on protonix 40mg IV daily. Surgery was consulted at that point as pt still c/o 9/10 pain and they ordered an upper GI, which was also negative. Surgery signed off. Today pt is still c/o LUQ and RLQ abd pain, but has been sleeping and also has been tolerating a bland diet. Will discharge her to home today and have her f/u with her PCP outpatient. Pt's blood sugars were low in the ER and throughout her first hospital day - down to the 40s at times. she had D5 1/2 NS for IV fluids and still had to have glucose gel. She did not have much appetite. We did have to premedicate with IV solumedrol and benadryl prior to her CT scan so her BS have been 142- 364 since then. Pt discharged home on home meds with the addition of flagyl 500mg 1 po QID x 4d and protonix 20mg 1 po daily x 14d. - Vitals & Intake/Output Vital Signs: Vital Signs Temperature 97.8 F 03/13/18 07:25 Pulse Rate 66 03/13/18 07:25 Respiratory Rate 20 03/13/18 07:25 Blood Pressure 135/63 03/13/18 07:25 O2 Sat by Pulse Oximetry 100 03/13/18 07:25 Intake & Output: Intake & Output 03/10/18 03/11/18 03/12/18 03/13/18 11:59 11:59 11:59 11:59 Intake Total 757 4841 3650 2980 Output Total 3900 3300 2225 Balance 757 941 350 755 Weight 93.7 kg 99 kg 102.3 kg 104.6 kg - Lab Result Diagrams: 03/11/18 05:15 03/11/18 05:15 Lab Results-Last 24 Hrs: Accuchecks Date 03/13/18 Date 03/13/18 Date 03/13/18 Date 03/12/18 Time 07:30 Time 04:00 Time 00:00 Time 21:00 Accucheck Value: 230 Accucheck Value: 234 Accucheck Value: 240 Accucheck Value: 281 Accucheck Value: 250 Accucheck Value: 207 Accucheck Value: 141 Accucheck Value: 145 Accucheck Value: 142 Lab Results-Last 24 Hours 03/12/18 Range/Units 14:27 D-Dimer < 215 L (215-500) ng/mL Micro Results-Entire Visit: Accuchecks Date 03/13/18 Date 03/13/18 Date 03/13/18 Date 03/12/18 Time 07:30 Time 04:00 Time 00:00 Time 21:00 Accucheck Value: 230 Accucheck Value: 234 Accucheck Value: 240 Accucheck Value: 281 Accucheck Value: 250 Accucheck Value: 207 Accucheck Value: 141 Accucheck Value: 145 Accucheck Value: 142 - Radiology Exams Ordered Rad Exams-Entire Visit: Radiology Procedures Category Date Time Status UPPER GI Routine Exams 03/12/18 09:00 Completed Discharge Exam General Appearance: no apparent distress, alert Neurologic Exam: oriented x 3, cooperative Skin Exam: normal color, warm, dry, No rash Ears, Nose, Throat Exam: moist mucous membranes Respiratory Exam: normal breath sounds, lungs clear, No crackles/rales, No rhonchi, No wheezing Cardiovascular Exam: regular rate/rhythm, normal heart sounds, No murmur Gastrointestinal/Abdomen Exam: soft, normal bowel sounds, tenderness (LUQ, RLQ) , No distention, No mass, No guarding, No rebound Extremity Exam: No pedal edema, No swelling Final Diagnosis/Problem List - Final Discharge Diagnosis/Problem (1) Abdominal pain Current Visit: Yes Status: Acute Assessment & Plan: Still of unknown etiology, but CT abd/pelvis and upper GI have been negative. Nothing surgical per Dr. Fred Mercado and Dr. Bangura, thank you. Will speak with Dr. Weaver, if possible (will also send a copy of this discharge summary) as he will need to f/u with her outpatient. She is supposed to return to [place] today. (2) Hypoglycemia Current Visit: Yes Status: Chronic Assessment & Plan: Chronically an issue. Does not have her monitor in place as her supplies are in [place]. Her BS have been elevated since she received steroids IV here. (3) Chest pain Current Visit: No Status: Resolved Assessment & Plan: ND ruled out (4) HTN (hypertension) Current Visit: No Status: Chronic Assessment & Plan: stable here (5) History of pulmonary embolism Current Visit: No Status: Chronic Assessment & Plan: Pt is on xarelto. (6) Diabetes mellitus Current Visit: Yes Status: Chronic Assessment & Plan: Brittle. Will warn pt to check for hypoglycemia on the ride home. (7) Hx of supraventricular tachycardia Current Visit: Yes Status: Chronic (8) Bipolar 1 disorder Current Visit: Yes Status: Chronic - Discharge Disposition: Home, Self-Care Condition: Stable Prescriptions: New Metronidazole [Flagyl] 500 mg PO QID #16 tablet Omeprazole 20 MG [Prilosec 20 mg] 20 mg PO DAILY #14 capsule.dr Coelho Rivaroxaban [Xarelto] 20 mg PO QHS Atorvastatin Calcium 80 mg PO HS Levothyroxine Sodium 50 Mcg [Synthroid 50 Mcg] 1 - 2 tab PO UD Vortioxetine Hydrobromide [Trintellix] 20 mg PO QAM lamoTRIgine [Lamictal] 200 mg PO BID cloNIDine [Clonidine] 0.2 mg TOP WEEKLY Clonazepam 0.5 mg PO HS Insulin Aspart [NovoLOG Insulin] 0 unit SQ AC Aripiprazole 10 mg [Abilify 10 MG] 15 mg PO QAM Insulin Glargine [Lantus Insulin] 14 unit SQ QAM Insulin Aspart [NovoLOG Insulin] 5 unit SQ AC OLANZapine [Zyprexa] 15 mg PO HS Additional Instructions: Check blood sugar and watch for hypoglycemia on your way home to [place] and until you get your hypoglycemia monitor re-attached. Follow up with: PEDRO WEAVER MD [Primary Care Provider] - 1 Week
[2018-03-13] MEDS: SYNTHROID 100 MCG PO SCH (09:15)
[2018-03-13] MEDS: lamICTAL 100MG TABLET PO SCH (09:15)
[2018-03-13] MEDS: Abilify 10 MG PO SCH (09:16)
== END 2018-03-13 12:04 | disposition home or self-care (01) | DRG 392 ==
LOC: ED 17:13 → MED SURG 23:25 → OBSVTOIN 03-10 12:40
PROVIDERS: ADMIT Family Medicine; ATTEND Family Medicine
DX: E11.649 Type 2 diabetes mellitus with hypoglycemia without coma (principal); R10.31 Right lower quadrant pain; R10.12 Left upper quadrant pain; Z79.4 Long term (current) use of insulin; R07.9 Chest pain, unspecified; I10 Essential (primary) hypertension; F31.9 Bipolar disorder, unspecified; E78.00 Pure hypercholesterolemia, unspecified; Z86.711 Personal history of pulmonary embolism; F41.9 Anxiety disorder, unspecified; R11.0 Nausea; E03.9 Hypothyroidism, unspecified; Z79.01 Long term (current) use of anticoagulants; Z86.79 Personal history of other diseases of the circulatory system; Z79.899 Other long term (current) drug therapy
CPT/HCPCS: 01916; 36000; 36415; 71046; 74018; 74178; 74246; 76942; 80053; 81001; 82150; 82947; 82962; 83036; 83690; 84484; 85025; 85379; 93005; 93268; 96360; 96374; 96375; 96376; 99285; G0378; Q9967; J1200; J2270; J2405; J2920; J3010; A9270-GY

== ENCOUNTER 2018-12-20 21:34 | Emergency (ER) | payer MEDICARE ==
--- NOTE | 2018-12-20 22:01 | ERPHSYRPT ---
- History of Present Illness Time Seen by Provider: 12/20/18 21:55 Historian: patient Exam Limitations: no limitations Physician History: 43 y/o insulin dependent diabetic obese female on xarelto presents with left side ant cp that radiates straight into back. onset suddenly at 1900. had a vomiting episode. no diarrhea. no abd pain. pt denies soa. Timing/Duration: today Activities at Onset: none Quality: sharpness, stabbing Location: other (left ant cp) Chest Pain Radiation: back Severity of Pain-Max: mild Severity of Pain-Current: mild Associated Symptoms: nausea, vomiting, No cough Prior Chest Pain/Cardiac Workup: cardiac cath Nitro Today/Relief: no nitro taken today Aspirin Treatment Today: no aspirin today Allergies/Adverse Reactions: acetaminophen [From Percocet] Allergy (Verified 03/09/18 23:50) diazepam [From Valium] Allergy (Verified 03/09/18 23:50) hydrocodone [From [place]] Allergy (Verified 03/09/18 23:50) Iodinated Contrast Media Allergy (Verified 03/09/18 23:50) ketorolac [From Toradol] Allergy (Verified 03/09/18 23:50) oxycodone [From Percocet] Allergy (Verified 03/09/18 23:50) Sulfa (Sulfonamide Antibiotics) Allergy (Verified 03/09/18 23:50) tramadol [From Ultram] Allergy (Verified 03/09/18 23:50) Home Medications: Atorvastatin Calcium 80 mg PO HS 06/22/17 [History] Levothyroxine Sodium 50 Mcg [Synthroid 50 Mcg] 1 - 2 tab PO UD 06/22/17 [ History] Rivaroxaban [Xarelto] 20 mg PO QHS 06/22/17 [History] Vortioxetine Hydrobromide [Trintellix] 20 mg PO QAM 06/22/17 [History] cloNIDine [Clonidine] 0.2 mg TOP WEEKLY 06/22/17 [History] lamoTRIgine [Lamictal] 200 mg PO BID 06/22/17 [History] Aripiprazole 10 mg [Abilify 10 MG] 15 mg PO QAM 03/09/18 [History] Clonazepam 0.5 mg PO HS 03/09/18 [History] Insulin Aspart [NovoLOG Insulin] 0 unit SQ AC 03/09/18 [History] Insulin Aspart [NovoLOG Insulin] 5 unit SQ AC 03/09/18 [History] Insulin Glargine [Lantus Insulin] 14 unit SQ QAM 03/09/18 [History] OLANZapine [Zyprexa] 15 mg PO HS 03/09/18 [History] Hx Tetanus, Diphtheria Vaccination/Date Given: Yes Hx Influenza Vaccination/Date Given: Yes Hx Pneumococcal Vaccination/Date Given: Yes - Past Medical History Pertinent Past Medical History: Yes Neurological History: No Pertinent History ENT History: No Pertinent History Cardiac History: Arrhythmia, High Cholesterol Respiratory History: Pulmonary Embolism Endocrine Medical History: Diabetes Type II, Hypothyroidism Musculoskeletal History: No Pertinent History GI Medical History: No Pertinent History History: No Pertinent History Psycho-Social History: Anxiety, Depression Female Reproductive Disorders: Other Other Medical History: SVT, BLOOD CLOTS, blood clots , ovarian cysts - Past Surgical History Past Surgical History: Yes Neuro Surgical History: No Pertinent History Cardiac: Other Respiratory: No Pertinent History Gastrointestinal: Cholecystectomy Genitourinary: No Pertinent History Female Surgical History: Hysterectomy, Section Other Surgical History: ablation x3, IVC filter placement - Social History Smoking Status: Never smoker Exposure to second hand smoke: No Drug Use: none Patient Lives Alone: No - Nursing Vital Signs Nursing Vital Signs: Initial Vital Signs Pulse Rate 87 12/20/18 21:57 Respiratory Rate 19 12/20/18 21:57 Blood Pressure 177/83 12/20/18 21:57 O2 Sat by Pulse Oximetry 99 12/20/18 21:57 Pain Scale Pain Intensity 9 - Physical Exam General Appearance: mild distress, alert, anxiety Eye Exam: PERRL/EOMI, eyes nml inspection Ears, Nose, Throat Exam: normal ENT inspection, moist mucous membranes Neck Exam: normal inspection, non-tender, supple, full range of motion Respiratory Exam: normal breath sounds, chest tenderness (left ant), lungs clear , airway intact, No respiratory distress Cardiovascular Exam: regular rate/rhythm, normal heart sounds, normal peripheral pulses Gastrointestinal/Abdomen Exam: soft, normal bowel sounds, No tenderness Pelvic Exam: not done Rectal Exam: not done Back Exam: normal inspection, normal range of motion, No CVA tenderness Extremity Exam: normal inspection, normal range of motion, pelvis stable Neurologic Exam: alert, oriented x 3, cooperative, medical engineer II-XII nml as tested Skin Exam: normal color, warm, dry Lymphatic Exam: No adenopathy SpO2 Interpretation: normal O2 Delivery: Room Air - Course Nursing assessment & vital signs reviewed: Yes EKG Interpreted by Me: RATE ([id number]), Sinus Rhythm, NORMAL AXIS, NORMAL INTERVALS, NORMAL QRS, Other (no comparison ekg) Ordered Tests: Active Orders 24 hr Category Date Time Status EKG-ER Only STAT Care 12/20/18 22:01 Active IV Insertion STAT Care 12/20/18 22:01 Active Pulse Oximetry (ED) STAT Care 12/20/18 22:01 Active CHEST 1 VIEW (PORTABLE) Stat Exams 12/20/18 22:01 Taken CBC W DIFF Stat Lab 12/20/18 22:20 Completed CMP Stat Lab 12/20/18 22:20 Completed CULTURE,URINE Stat Lab 12/21/18 01:16 Received D-DIMER QUANTITATION Stat Lab 12/20/18 22:20 Completed NT PRO BNP Stat Lab 12/20/18 22:20 Completed PROTIME WITH INR Stat Lab 12/20/18 22:20 Completed TROPONIN Q3H Lab 12/20/18 22:20 Completed TROPONIN Q3H Lab 12/21/18 02:15 Received TROPONIN Q3H Lab 12/21/18 04:15 Ordered TROPONIN Q3H Lab 12/21/18 07:15 Ordered TROPONIN Q3H Lab 12/21/18 10:15 Ordered UA W/RFX UR CULTURE Stat Lab 12/21/18 01:16 Completed Medication Summary Generic Name Dose Route Start Last Admin Trade Name Freq PRN Reason Stop Dose Admin Ceftriaxone Sodium/Dextrose 1 g in 50 mls @ 100 mls/hr 12/21/18 02:47 Rocephin 1 Gm-D5w 50 Ml Bag IV 12/21/18 03:16 STAT STA Discontinued Medications Generic Name Dose Route Start Last Admin Trade Name Freq PRN Reason Stop Dose Admin Sodium Chloride 1,000 mls @ 999 mls/hr 12/20/18 23:55 12/21/18 02:25 Sodium Chloride 0.9% 1000 Ml IV 12/21/18 00:55 Infused .Q1H1M STA Infusion Sodium Chloride Confirm 12/21/18 00:01 Sodium Chloride 0.9% 1000 Ml Administered 12/21/18 00:02 Dose 1,000 mls @ ud .ROUTE .STK-MED ONE Morphine Sulfate 4 mg 12/20/18 23:55 12/21/18 00:06 Morphine Sulfate 4 Mg Inj IV 12/20/18 23:56 4 mg STAT ONE Administration Morphine Sulfate Confirm 12/21/18 00:01 Morphine Sulfate 4 Mg Inj Administered 12/21/18 00:02 Dose 4 mg .ROUTE .STK-MED ONE Morphine Sulfate 4 mg 12/21/18 02:47 Morphine Sulfate 4 Mg Inj IV 12/21/18 02:48 STAT ONE Ondansetron HCl 4 mg 12/20/18 23:55 12/21/18 00:05 Zofran 4 Mg/2 Ml Vial IV 12/20/18 23:56 4 mg STAT ONE Administration Ondansetron HCl Confirm 12/21/18 00:00 Zofran 4 Mg/2 Ml Vial Administered 12/21/18 00:01 Dose 4 mg .ROUTE .STK-MED ONE Lab/Rad Data: Laboratory Result Diagrams 12/20/18 22:20 12/20/18 22:20 Laboratory Results 12/21/18 12/20/18 12/20/18 Range/Units 01:16 22:20 22:20 WBC (4.0-10.5) K/mm3 RBC (4.1-5.4) M/mm3 Hgb (12.0-16.0) gm/dl Hct (35-47) % MCV (78-100) fl MCH (26-32) pg MCHC (32-36) g/dl RDW (11.5-14.0) % Plt Count (150-450) K/mm3 MPV (6-9.5) fl Gran % (36.0-66.0) % Eos # (Auto) (0-0.5) Absolute Lymphs (auto) (1.0-4.6) Absolute Monos (auto) (0.0-1.3) Lymphocytes % (24.0-44.0) % Monocytes % (0.0-12.0) % Eosinophils % (0.00-5.0) % Basophils % (0.0-0.4) % Absolute Granulocytes (1.4-6.9) Basophils # (0-0.4) PT 11.4 (9.95-12.35) SECONDS INR 1.01 (0.8-3.0) D-Dimer 229 (215-500) ng/mL Sodium (137-145) mmol/L Potassium (3.5-5.1) mmol/L Chloride (98-107) mmol/L Carbon Dioxide (22-30) mmol/L Anion Gap (5-15) MEQ/L BUN (7-17) mg/dL Creatinine (0.52-1.04) mg/dL Estimated GFR ML/MIN Glucose (74-106) mg/dL Calcium (8.4-10.2) mg/dL Total Bilirubin (0.2-1.3) mg/dL AST (14-36) U/L ALT (0-35) U/L Alkaline Phosphatase (38-126) U/L Troponin I < 0.012 (0.000-0.034) ng/mL NT-Pro-B Natriuret Pep (0-450) pg/mL Serum Total Protein (6.3-8.2) g/dL Albumin (3.5-5.0) g/dL Urine Color YELLOW (YELLOW) Urine Appearance CLOUDY (CLEAR) Urine pH 8.0 (5-6) Ur Specific [place] 1.025 (1.005-1.025) Urine Protein NEGATIVE (Negative) Urine Ketones NEGATIVE (NEGATIVE) Urine Blood NEGATIVE (0-5) Robby/ul Urine Nitrite NEGATIVE (NEGATIVE) Urine Bilirubin NEGATIVE (NEGATIVE) Urine Urobilinogen NEGATIVE (0-1) mg/dL Ur Leukocyte Esterase MODERATE (NEGATIVE) Urine WBC (Auto) 26-50 (0-5) /HPF Urine RBC (Auto) 3-5 (0-2) /HPF U Epithel Cells (Auto) RARE (FEW) /HPF Urine Bacteria (Auto) FEW (NEGATIVE) /HPF Urine Yeast (Budding) Few (NEGATIVE) /HPF Urine Culture Reflexed YES (NO) Urine Glucose >=500 (NEGATIVE) mg/dL 12/20/18 12/20/18 Range/Units 22:20 22:20 WBC 10.2 (4.0-10.5) K/mm3 RBC 4.70 (4.1-5.4) M/mm3 Hgb 12.7 (12.0-16.0) gm/dl Hct 38.7 (35-47) % MCV 82.3 (78-100) fl MCH 27.0 (26-32) pg MCHC 32.8 (32-36) g/dl RDW 16.5 H (11.5-14.0) % Plt Count 239 (150-450) K/mm3 MPV 10.3 H (6-9.5) fl Gran % 62.7 (36.0-66.0) % Eos # (Auto) 0.17 (0-0.5) Absolute Lymphs (auto) 2.65 (1.0-4.6) Absolute Monos (auto) 0.94 (0.0-1.3) Lymphocytes % 26.1 (24.0-44.0) % Monocytes % 9.3 (0.0-12.0) % Eosinophils % 1.7 (0.00-5.0) % Basophils % 0.2 (0.0-0.4) % Absolute Granulocytes 6.38 (1.4-6.9) Basophils # 0.02 (0-0.4) PT (9.95-12.35) SECONDS INR (0.8-3.0) D-Dimer (215-500) ng/mL Sodium 138 (137-145) mmol/L Potassium 4.2 (3.5-5.1) mmol/L Chloride 104 (98-107) mmol/L Carbon Dioxide 23 (22-30) mmol/L Anion Gap 15.1 H (5-15) MEQ/L BUN 9 (7-17) mg/dL Creatinine 0.51 L (0.52-1.04) mg/dL Estimated GFR > 60.0 ML/MIN Glucose 320 H (74-106) mg/dL Calcium 9.8 (8.4-10.2) mg/dL Total Bilirubin 0.30 (0.2-1.3) mg/dL AST 19 (14-36) U/L ALT 23 (0-35) U/L Alkaline Phosphatase 133 H (38-126) U/L Troponin I (0.000-0.034) ng/mL NT-Pro-B Natriuret Pep 217 (0-450) pg/mL Serum Total Protein 7.2 (6.3-8.2) g/dL Albumin 4.3 (3.5-5.0) g/dL Urine Color (YELLOW) Urine Appearance (CLEAR) Urine pH (5-6) Ur Specific Fenton (1.005-1.025) Urine Protein (Negative) Urine Ketones (NEGATIVE) Urine Blood (0-5) Robby/ul Urine Nitrite (NEGATIVE) Urine Bilirubin (NEGATIVE) Urine Urobilinogen (0-1) mg/dL Ur Leukocyte Esterase (NEGATIVE) Urine WBC (Auto) (0-5) /HPF Urine RBC (Auto) (0-2) /HPF U Epithel Cells (Auto) (FEW) /HPF Urine Bacteria (Auto) (NEGATIVE) /HPF Urine Yeast (Budding) (NEGATIVE) /HPF Urine Culture Reflexed (NO) Urine Glucose (NEGATIVE) mg/dL - Progress Progress: improved Air Movement: good Progress Note: 12/20/18 23:44 cxr-no acute process 12/21/18 00:20 pt states she has had morphine in past without issues Blood Culture(s) Obtained: No Antibiotics given: No Counseled pt/family regarding: lab results, diagnosis, need for follow-up, rad results - Departure Departure Disposition: Home Clinical Impression: Chest pain, UTI (urinary tract infection) Condition: Stable Critical Care Time: No Referrals: PEDRO WEAVER MD [Primary Care Provider] - Additional Instructions: drink plenty of fluids. follow up with primary doctor for further management Prescriptions: Ciprofloxacin [Cipro 500 MG] 500 mg PO BID #14 tablet
[2018-12-20 22:28] LABS: BASOPHIL % 0.2 % (0.0-0.4); Basophil (Absolute #) 0.02 (0-0.4); Eosinophil % 1.7 % (0.00-5.0); Eosinophil (Absolute #) 0.17 (0-0.5); Granulocyte Absolute (ANC) 6.38 (1.4-6.9); Granulocytes % 62.7 % (36.0-66.0); Hematocrit 38.7 % (35-47); Hemoglobin 12.7 gm/dl (12.0-16.0); Lymphocyte (Absolute #) 2.65 (1.0-4.6); Lymphocytes % 26.1 % (24.0-44.0); Mean Cell Volume 82.3 fl (78-100); Mean Corpuscular Hgb Concent. 32.8 g/dl (32-36); Mean Platelet Volume 10.3 fl (6-9.5); Monocyte (Absolute #) 0.94 (0.0-1.3); Monocytes % 9.3 % (0.0-12.0); Platelet Count 239 K/mm3 (150-450); Red Cell Distribution Width 16.5 % (11.5-14.0); White Blood Count 10.2 K/mm3 (4.0-10.5)
[2018-12-20 22:37] LABS: INR 1.01 (0.8-3.0); PROTIME 11.4 SECONDS (9.95-12.35)
[2018-12-20 22:50] LABS: ALBUMIN 4.3 g/dL (3.5-5.0); ALKALINE PHOSPHATASE 133 U/L (38-126); ANION GAP 15.1 MEQ/L (5-15); BLOOD UREA NITROGEN 9 mg/dL (7-17); CHLORIDE 104 mmol/L (98-107); Calcium 9.8 mg/dL (8.4-10.2); Carbon Dioxide 23 mmol/L (22-30); Creatinine 1 0.51 mg/dL (0.52-1.04); Glucose 320 mg/dL (74-106); NT PRO BNP 217 pg/mL (0-450); Potassium 4.2 mmol/L (3.5-5.1); SGOT/AST 19 U/L (14-36); SGPT/ALT 23 U/L (0-35); SODIUM 138 mmol/L (137-145); Total Protein 7.2 g/dL (6.3-8.2)
[2018-12-20] MEDS ORDERED: Zofran 4 MG/2 ML VIAL IV ONE (23:55)
[2018-12-20] MEDS ORDERED: MORPHINE SULFATE 4 MG INJ IV ONE (23:55)
[2018-12-20] MEDS ORDERED: Sodium Chloride 0.9% 1000 ML 1,000 ML IV STA (23:55)
[2018-12-21] MEDS ORDERED: MORPHINE SULFATE 4 MG INJ ONE ×2 (00:01→02:58)
[2018-12-21] MEDS ORDERED: Sodium Chloride 0.9% 1000 ML 1,000 ML ONE (00:01)
[2018-12-21 01:26] LABS: Appearance CLOUDY (CLEAR); Bacteria FEW /HPF (NEGATIVE); Bilirubin NEGATIVE (NEGATIVE); Blood NEGATIVE Ery/ul (0-5); Epithelial Cells RARE /HPF (FEW); Glucose >=500 mg/dL (NEGATIVE); Ketones NEGATIVE (NEGATIVE); Leukocyte Esterase MODERATE (NEGATIVE); Nitrite NEGATIVE (NEGATIVE); Protein,Urine Dip NEGATIVE (Negative); Specific Gravity 1.025 (1.005-1.025); Urobilinogen NEGATIVE mg/dL (0-1); WBC 26-50 /HPF (0-5)
[2018-12-21 01:28] LABS: Budding Yeast Few /HPF (NEGATIVE)
[2018-12-21 01:31] VITALS: O2SAT 98
[2018-12-21] MEDS ORDERED: MORPHINE SULFATE 4 MG INJ IV ONE (02:47)
[2018-12-21] MEDS ORDERED: ROCEPHIN 1 Gm-D5w 50 ml Bag** 1 G/50 ML IVPB IV STA (02:47)
[2018-12-21] MEDS ORDERED: ROCEPHIN 1 Gm-D5w 50 ml Bag** 1 G/50 ML IVPB IV ONE (02:58)
[2018-12-21 03:11] VITALS: PULSE 80
[2018-12-21] MEDS ORDERED: Diflucan 100 MG PO ONE (03:35)
[2018-12-21] MEDS ORDERED: Zofran 4 MG/2 ML VIAL IV ONE (03:57)
[2018-12-21] MEDS ORDERED: Zofran 4 MG/2 ML VIAL ONE ×2 (04:01)
[2018-12-21 04:02] VITALS: BP 149/82
--- NOTE | 2018-12-21 11:05 | XRAY ---
Indication: Chest pain. Comparison: March 09, 2018. Portable chest again demonstrates normal heart, lungs, and bony thorax.
== END 2018-12-21 04:15 | disposition home or self-care (01) ==
LOC: ED 21:34
DX: R07.9 Chest pain, unspecified (principal); N39.0 Urinary tract infection, site not specified
CPT/HCPCS: 36000; 36415; 71045; 80053; 81001; 82962; 83880; 84484; 85025; 85379; 85610; 87086; 93005; 94760; 96360; 96365; 96374; 96375; 96376; 99285; J0696; J2270; J2405; A9270-GY

== ENCOUNTER 2019-04-23 19:24 | Observation (INO) | payer MEDICARE ==
[2019-04-23] MEDS ORDERED: Ecotrin 325 MG PO ONE (19:36)
[2019-04-23] MEDS ORDERED: Zofran 4 MG/2 ML VIAL IV ONE (19:38)
[2019-04-23] MEDS ORDERED: NITRO-BID 2% UD PACKETS TOP ONE (19:38)
[2019-04-23] MEDS ORDERED: MORPHINE SULFATE 2 MG INJ IV ONE (19:38)
--- NOTE | 2019-04-23 19:38 | ERPHSYRPT ---
- History of Present Illness Time Seen by Provider: 04/23/19 19:27 Historian: patient Exam Limitations: physical impairment Physician History: chest pain started today. Feels heavy in the chest. No radiation. Patient has a history of a PE 4 years ago. Patient was on Xeralto She stopped taking it 2 weeks ago because she fell. Timing/Duration: today Activities at Onset: none Quality: pressure Location: substernal, other (Ant chest) Chest Pain Radiation: no radiation Severity of Pain-Max: moderate Severity of Pain-Current: moderate Modifying Factors: Improves With: nothing Associated Symptoms: heartburn, shortness of breath, No nausea, No vomiting, No palpitations, No abdominal pain, No cough, No hurts to breathe, No diaphoresis, No chills Prior Chest Pain/Cardiac Workup: pulmonary embolism Nitro Today/Relief: no nitro taken today Aspirin Treatment Today: no aspirin today Allergies/Adverse Reactions: acetaminophen [From Percocet] Allergy (Verified 04/23/19 19:42) diazepam [From Valium] Allergy (Verified 04/23/19 19:42) hydrocodone [From [place]] Allergy (Verified 04/23/19 19:42) Iodinated Contrast Media Allergy (Verified 04/23/19 19:42) ketorolac [From Toradol] Allergy (Verified 04/23/19 19:42) oxycodone [From Percocet] Allergy (Verified 04/23/19 19:42) Sulfa (Sulfonamide Antibiotics) Allergy (Verified 04/23/19 19:42) tramadol [From Ultram] Allergy (Verified 04/23/19 19:42) Home Medications: Atorvastatin Calcium 80 mg PO HS 06/22/17 [History] Levothyroxine Sodium 50 Mcg [Synthroid 50 Mcg] 1 - 2 tab PO UD 06/22/17 [ History] Rivaroxaban [Xarelto] 20 mg PO QHS 06/22/17 [History] Vortioxetine Hydrobromide [Trintellix] 20 mg PO QAM 06/22/17 [History] cloNIDine [Clonidine] 0.2 mg TOP WEEKLY 06/22/17 [History] lamoTRIgine [Lamictal] 200 mg PO BID 06/22/17 [History] Aripiprazole 10 mg [Abilify 10 MG] 15 mg PO QAM 11/10/18 [History] Clonazepam 0.5 mg PO HS 03/09/18 [History] Insulin Aspart [NovoLOG Insulin] 0 unit SQ AC 03/09/18 [History] Insulin Aspart [NovoLOG Insulin] 5 unit SQ AC 03/09/18 [History] Insulin Glargine [Lantus Insulin] 14 unit SQ QAM 03/09/18 [History] OLANZapine [Zyprexa] 15 mg PO HS 03/09/18 [History] Hx Tetanus, Diphtheria Vaccination/Date Given: Yes Hx Influenza Vaccination/Date Given: Yes Hx Pneumococcal Vaccination/Date Given: Yes - Past Medical History Pertinent Past Medical History: Yes Neurological History: No Pertinent History ENT History: No Pertinent History Cardiac History: Arrhythmia, High Cholesterol Respiratory History: Pulmonary Embolism Endocrine Medical History: Diabetes Type II, Hypothyroidism Musculoskeletal History: No Pertinent History GI Medical History: No Pertinent History History: No Pertinent History Psycho-Social History: Anxiety, Depression Female Reproductive Disorders: Other Other Medical History: SVT, BLOOD CLOTS, blood clots , ovarian cysts - Past Surgical History Past Surgical History: Yes Neuro Surgical History: No Pertinent History Cardiac: Other Respiratory: No Pertinent History Gastrointestinal: Cholecystectomy Genitourinary: No Pertinent History Female Surgical History: Hysterectomy, Section Other Surgical History: ablation x3, IVC filter placement - Social History Smoking Status: Never smoker Exposure to second hand smoke: No Drug Use: none Patient Lives Alone: No - Female History Hx Now: No - Nursing Vital Signs Nursing Vital Signs: Initial Vital Signs Temperature 98.0 F 04/23/19 19:26 Pulse Rate 91 H 04/23/19 19:26 Respiratory Rate 18 04/23/19 19:26 Blood Pressure 149/91 04/23/19 19:26 O2 Sat by Pulse Oximetry 98 04/23/19 19:26 Pain Scale Pain Intensity 8 Ordered Tests: Active Orders 24 hr Category Date Time Status Telephone Triage Nurse STAT Care 04/23/19 19:28 Active EKG-ER Only STAT Care 04/23/19 19:27 Active IV Insertion STAT Care 04/23/19 19:27 Active Pulse Oximetry (ED) STAT Care 04/23/19 19:27 Active CHEST 1 VIEW (PORTABLE) Stat Exams 04/23/19 19:28 Taken CBC W DIFF Stat Lab 04/23/19 20:14 Completed CK-Creatinine Phosphokinase Stat Lab 04/23/19 20:14 Completed CMP Stat Lab 04/23/19 20:14 Completed D-DIMER QUANTITATION Stat Lab 04/23/19 20:14 Completed NT PRO BNP Stat Lab 04/23/19 20:14 Completed TROPONIN Q3H Lab 04/23/19 20:14 Completed TROPONIN Q3H Lab 04/23/19 22:30 Ordered TROPONIN Q3H Lab 04/24/19 01:30 Ordered TROPONIN Q3H Lab 04/24/19 04:30 Ordered TROPONIN Q3H Lab 04/24/19 07:30 Ordered Medication Summary Discontinued Medications Generic Name Dose Route Start Last Admin Trade Name Freq PRN Reason Stop Dose Admin Aspirin 325 mg 04/23/19 19:36 04/23/19 20:03 Ecotrin 325 Mg PO 04/23/19 19:37 325 mg STAT ONE Administration Enoxaparin Sodium 70 mg 04/23/19 19:39 04/23/19 20:02 Enoxaparin Sodium SQ 04/23/19 19:40 70 mg STAT ONE Administration Enoxaparin Sodium Confirm 04/23/19 19:56 Enoxaparin Sodium Administered 04/23/19 19:57 Dose 80 mg SQ .STK-MED ONE Morphine Sulfate 2 mg 04/23/19 19:38 04/23/19 20:01 Morphine Sulfate 2 Mg Inj IV 04/23/19 19:39 2 mg STAT ONE Administration Morphine Sulfate Confirm 04/23/19 19:55 Morphine Sulfate 2 Mg Inj Administered 04/23/19 19:56 Dose 2 mg .ROUTE .STK-MED ONE Nitroglycerin 1 gm 04/23/19 19:38 04/23/19 19:58 Nitro-Bid 2% Ud Packets TOP 04/23/19 19:39 1 gm STAT ONE Administration Nitroglycerin Confirm 04/23/19 19:55 Nitro-Bid 2% Ud Packets Administered 04/23/19 19:56 Dose 1 gm .ROUTE .STK-MED ONE Ondansetron HCl 4 mg 04/23/19 19:38 04/23/19 20:02 Zofran 4 Mg/2 Ml Vial IV 04/23/19 19:39 4 mg STAT ONE Administration Ondansetron HCl Confirm 04/23/19 19:55 Zofran 4 Mg/2 Ml Vial Administered 04/23/19 19:56 Dose 4 mg .ROUTE .STK-MED ONE Lab/Rad Data: Laboratory Result Diagrams 04/23/19 20:14 04/23/19 20:14 Laboratory Results 04/23/19 04/23/19 04/23/19 Range/Units 20:14 20:14 20:14 WBC (4.0-10.5) K/mm3 RBC (4.1-5.4) M/mm3 Hgb (12.0-16.0) gm/dl Hct (35-47) % MCV (78-100) fl MCH (26-32) pg MCHC (32-36) g/dl RDW (11.5-14.0) % Plt Count (150-450) K/mm3 MPV (6-9.5) fl Gran % (36.0-66.0) % Eos # (Auto) (0-0.5) Absolute Lymphs (auto) (1.0-4.6) Absolute Monos (auto) (0.0-1.3) Lymphocytes % (24.0-44.0) % Monocytes % (0.0-12.0) % Eosinophils % (0.00-5.0) % Basophils % (0.0-0.4) % Absolute Granulocytes (1.4-6.9) Basophils # (0-0.4) D-Dimer 216 (215-500) ng/mL Sodium 139 (137-145) mmol/L Potassium 4.0 (3.5-5.1) mmol/L Chloride 102 (98-107) mmol/L Carbon Dioxide 29 (22-30) mmol/L Anion Gap 12.1 (5-15) MEQ/L BUN 11 (7-17) mg/dL Creatinine 0.73 (0.52-1.04) mg/dL Estimated GFR > 60.0 ML/MIN Glucose 242 H (74-106) mg/dL Calcium 9.4 (8.4-10.2) mg/dL Total Bilirubin 0.30 (0.2-1.3) mg/dL AST 28 (14-36) U/L ALT 29 (0-35) U/L Alkaline Phosphatase 137 H (38-126) U/L Creatine Kinase 77 (30-135) U/L Troponin I < 0.012 (0.000-0.034) ng/mL NT-Pro-B Natriuret Pep 256 (0-450) pg/mL Serum Total Protein 7.5 (6.3-8.2) g/dL Albumin 4.4 (3.5-5.0) g/dL 04/23/19 Range/Units 20:14 WBC 10.8 H (4.0-10.5) K/mm3 RBC 4.93 (4.1-5.4) M/mm3 Hgb 13.3 (12.0-16.0) gm/dl Hct 40.5 (35-47) % MCV 82.2 (78-100) fl MCH 27.0 (26-32) pg MCHC 32.8 (32-36) g/dl RDW 15.8 H (11.5-14.0) % Plt Count 225 (150-450) K/mm3 MPV 10.8 H (6-9.5) fl Gran % 71.6 H (36.0-66.0) % Eos # (Auto) 0.21 (0-0.5) Absolute Lymphs (auto) 2.03 (1.0-4.6) Absolute Monos (auto) 0.81 (0.0-1.3) Lymphocytes % 18.8 L (24.0-44.0) % Monocytes % 7.5 (0.0-12.0) % Eosinophils % 1.9 (0.00-5.0) % Basophils % 0.2 (0.0-0.4) % Absolute Granulocytes 7.73 H (1.4-6.9) Basophils # 0.02 (0-0.4) D-Dimer (215-500) ng/mL Sodium (137-145) mmol/L Potassium (3.5-5.1) mmol/L Chloride (98-107) mmol/L Carbon Dioxide (22-30) mmol/L Anion Gap (5-15) MEQ/L BUN (7-17) mg/dL Creatinine (0.52-1.04) mg/dL Estimated GFR ML/MIN Glucose (74-106) mg/dL Calcium (8.4-10.2) mg/dL Total Bilirubin (0.2-1.3) mg/dL AST (14-36) U/L ALT (0-35) U/L Alkaline Phosphatase (38-126) U/L Creatine Kinase (30-135) U/L Troponin I (0.000-0.034) ng/mL NT-Pro-B Natriuret Pep (0-450) pg/mL Serum Total Protein (6.3-8.2) g/dL Albumin (3.5-5.0) g/dL - Progress Progress: improved Air Movement: good Blood Culture(s) Obtained: No Antibiotics given: No Discussed with : Shilpi Will see patient in: hospital (observation) Counseled pt/family regarding: diagnosis - Departure Departure Disposition: Observation Clinical Impression: Chest pain Qualifiers: Chest pain type: unspecified Qualified Code(s): R07.9 - Chest pain, unspecified Condition: Good Critical Care Time: No Referrals: PEDRO WEAVER MD [Primary Care Provider] - Instructions: Chest Pain (DC)
[2019-04-23] MEDS ORDERED: ENOXAPARIN SODIUM SQ ONE ×2 (19:39→19:56)
[2019-04-23] MEDS ORDERED: MORPHINE SULFATE 2 MG INJ ONE (19:55)
[2019-04-23] MEDS ORDERED: Zofran 4 MG/2 ML VIAL ONE (19:55)
[2019-04-23] MEDS ORDERED: NITRO-BID 2% UD PACKETS ONE (19:55)
[2019-04-23 20:21] LABS: Absolute Neutrophil Ct (ANC) 7.73 (1.4-6.9); BASOPHIL % 0.2 % (0.0-0.4); Basophil (Absolute #) 0.02 (0-0.4); Eosinophil % 1.9 % (0.00-5.0); Eosinophil (Absolute #) 0.21 (0-0.5); Hematocrit 40.5 % (35-47); Hemoglobin 13.3 gm/dl (12.0-16.0); Lymphocyte (Absolute #) 2.03 (1.0-4.6); Lymphocytes % 18.8 % (24.0-44.0); Mean Cell Volume 82.2 fl (78-100); Mean Corpuscular Hgb Concent. 32.8 g/dl (32-36); Mean Platelet Volume 10.8 fl (6-9.5); Monocyte (Absolute #) 0.81 (0.0-1.3); Monocytes % 7.5 % (0.0-12.0); Neutrophil % 71.6 % (36.0-66.0); Platelet Count 225 K/mm3 (150-450); Red Blood Count 4.93 M/mm3 (4.1-5.4); Red Cell Distribution Width 15.8 % (11.5-14.0); White Blood Count 10.8 K/mm3 (4.0-10.5)
[2019-04-23 20:41] LABS: ALBUMIN 4.4 g/dL (3.5-5.0); ALKALINE PHOSPHATASE 137 U/L (38-126); ANION GAP 12.1 MEQ/L (5-15); BLOOD UREA NITROGEN 11 mg/dL (7-17); CHLORIDE 102 mmol/L (98-107); CK-Creatinine Phosphokinase 77 U/L (30-135); Calcium 9.4 mg/dL (8.4-10.2); Carbon Dioxide 29 mmol/L (22-30); Creatinine 1 0.73 mg/dL (0.52-1.04); Glucose 242 mg/dL (74-106); NT PRO BNP 256 pg/mL (0-450); SGOT/AST 28 U/L (14-36); SGPT/ALT 29 U/L (0-35); SODIUM 139 mmol/L (137-145); Total Protein 7.5 g/dL (6.3-8.2)
[2019-04-23] MEDS ORDERED: Senokot-S Tablet PO PRN (21:43)
[2019-04-23] MEDS ORDERED: NovoLOG Insulin SQ PRN (21:43)
[2019-04-23] MEDS ORDERED: Nitrostat 0.4 MG Tablet SL PRN (21:43)
[2019-04-23] MEDS: MORPHINE SULFATE 2 MG INJ IV PRN (23:38)
[2019-04-24] MEDS ORDERED: XARELTO 10 MG TABLET PO SCH (00:30)
[2019-04-24] MEDS ORDERED: Lantus Insulin SQ SCH ×2 (00:30→10:00)
[2019-04-24] MEDS ORDERED: Catapres 0.1 MG PO SCH ×2 (00:30→10:00)
[2019-04-24] MEDS: lamICTAL 100MG TABLET PO SCH ×2 (00:37→09:25)
[2019-04-24] MEDS: Zofran 4 MG/2 ML VIAL IV PRN ×2 (00:49→08:39)
[2019-04-24] MEDS: MORPHINE SULFATE 2 MG INJ IV PRN ×2 (03:50→08:38)
[2019-04-24 05:19] LABS: Risk Ratio 3.8
[2019-04-24] MEDS ORDERED: NovoLOG Insulin SQ SCH ×2 (07:30→08:00)
[2019-04-24 07:32] VITALS: BP 108/53; PULSE 70; O2SAT 97
[2019-04-24] MEDS ORDERED: MEDICATION INTERVENTION MC SCH (08:00)
--- NOTE | 2019-04-24 08:43 | XRAY ---
Indication: Chest pain. Comparison: December 20, 2018. Portable chest again demonstrates normal heart, lungs, and bony thorax.
--- NOTE | 2019-04-24 09:02 | PCM.HP ---
History of Present Illness - Chief Complaint Chief Complaint: Chest pain for 1 day History of Present Illness: is a 44 year old female.c/o chest pain started today. Feels heavy in the chest. No radiation. Patient has a history of a PE 4 years ago. Patient was on Xeralto She stopped taking it 2 weeks ago because she fell. Timing/Duration: today Activities at Onset: none Quality: pressure Location: substernal, other (Ant chest) Chest Pain Radiation: no radiation Severity of Pain-Max: moderate Severity of Pain-Current: moderate Modifying Factors: Improves With: nothing Associated Symptoms: heartburn, shortness of breath, No nausea, No vomiting, No palpitations, No abdominal pain, No cough, No hurts to breathe, No diaphoresis, No chills Prior Chest Pain/Cardiac Workup: pulmonary embolism Nitro Today/Relief: no nitro taken today Aspirin Treatment Today: no aspirin today - Review of Systems Constitutional: No Fever, No Chills Eyes: No Symptoms Ears, Nose, & Throat: No Symptoms Respiratory: No Cough, No Short Of Breath Cardiac: Chest Pain, No Edema, No Syncope Abdominal/Gastrointestinal: No Abdominal Pain, No Nausea, No Vomiting, No Diarrhea Genitourinary Symptoms: No Dysuria Musculoskeletal: No Back Pain, No Neck Pain Skin: No Rash Neurological: No Dizziness, No Focal Weakness, No Sensory Changes Psychological: No Symptoms Endocrine: No Symptoms Hematologic/Lymphatic: No Symptoms Immunological/Allergic: No Symptoms Medications & Allergies Home Medications: Home Medication List Atorvastatin Calcium 80 mg PO HS 06/22/17 [History Confirmed 04/23/19] Levothyroxine Sodium 50 Mcg [Synthroid 50 Mcg] 1 - 2 tab PO UD 06/22/17 [ History Confirmed 04/23/19] Rivaroxaban [Xarelto] 20 mg PO QHS 06/22/17 [History Confirmed 04/23/19] lamoTRIgine [Lamictal] 200 mg PO BID 06/22/17 [History Confirmed 04/23/19] Insulin Aspart [NovoLOG Insulin] 13 unit SQ BREAKFAST 03/09/18 [History Confirmed 04/23/19] Insulin Aspart [NovoLOG Insulin] 15 unit SQ AC 03/09/18 [History Confirmed 04/23/19] Clonidine HCl 0.1 mg [Catapres 0.1 MG] 0.2 mg PO QAM 04/23/19 [History Confirmed 04/23/19] Clonidine HCl 0.1 mg [Catapres 0.1 MG] 0.4 mg PO QHS 04/23/19 [History Confirmed 04/23/19] Cyclosporine [Restasis] 1 drop .ROUTE BID 04/23/19 [History Confirmed 04/23/19] Duloxetine HCl 30 mg [Cymbalta 30 MG Capsule] 60 mg PO QAM 04/23/19 [ History Confirmed 04/23/19] Insulin Aspart [NovoLOG Insulin] 1 unit SQ AC 04/23/19 [History Confirmed ] Insulin Glargine [Lantus Insulin] 8 unit SQ QHS 04/23/19 [History Confirmed 04/23/19] Insulin Glargine [Lantus Insulin] 30 unit SQ QAM 04/23/19 [History Confirmed 04/23/19] Allergies/Adverse Reactions: Allergies Allergy/AdvReac Type Severity Reaction Status Date / Time acetaminophen [From Percocet] Allergy Verified 04/23/19 19:42 diazepam [From Valium] Allergy Verified 04/23/19 19:42 hydrocodone [From [place]] Allergy Verified 04/23/19 19:42 Iodinated Contrast Media Allergy Verified 04/23/19 19:42 ketorolac [From Toradol] Allergy Verified 04/23/19 19:42 oxycodone [From Percocet] Allergy Verified 04/23/19 19:42 Sulfa (Sulfonamide Allergy Verified 04/23/19 19:42 Antibiotics) tramadol [From Ultram] Allergy Verified 04/23/19 19:42 - Past Medical History Past Medical History: Yes Neurological History: No Pertinent History ENT History: No Pertinent History Cardiac History: Arrhythmia, High Cholesterol Respiratory History: Pulmonary Embolism Endocrine Medical History: Diabetes Type II, Hypothyroidism Musculoskelatal History: No Pertinent History GI Medical History: No Pertinent History History: No Pertinent History Pyscho-Social History: Anxiety, Depression Reproductive Disorders: Other Comment: SVT, BLOOD CLOTS, blood clots , ovarian cysts - Female History Hx Last Menstrual Period: hysterectomy Are you now?: No - Past Surgical History Past Surgical History: Yes Neuro Surgical History: No Pertinent History Cardiac History: Other Respiratory Surgery: No Pertinent History GI Surgical History: Cholecystectomy Genitourinary Surgical Hx: No Pertinent History Female Surgical History: Hysterectomy, Section Other Surgical History: ablation x3, IVC filter placement, - Social History Smoking Status: Never smoker Exposure to second hand smoke: No Alcohol: None Drug Use: none - Physical Exam Vital Signs: Vital Signs - 24 hr Temp Pulse Resp BP Pulse Ox 04/24/19 07:31 97.8 F 70 18 108/53 97 04/24/19 07:25 95 04/24/19 04:00 97.4 F 79 18 114/56 94 L 04/24/19 00:00 18 98 04/23/19 22:36 99.5 F 85 18 137/68 99 04/23/19 21:19 87 18 129/75 98 04/23/19 20:10 97 04/23/19 19:26 98.0 F 91 H 18 149/91 98 General Appearance: no apparent distress, alert Neurologic Exam: alert, oriented x 3, cooperative, normal mood/affect, nml cerebellar function, nml station & gait, sensation nml, No motor deficits Eye Exam: PERRL/EOMI, eyes nml inspection Ears, Nose, Throat Exam: normal ENT inspection, TMs normal, pharynx normal, moist mucous membranes Neck Exam: normal inspection, non-tender, supple, full range of motion Respiratory Exam: normal breath sounds, lungs clear, No respiratory distress Cardiovascular Exam: regular rate/rhythm, normal heart sounds, normal peripheral pulses Gastrointestinal/Abdomen Exam: soft, normal bowel sounds, No tenderness, No mass Back Exam: normal inspection, normal range of motion, No CVA tenderness, No vertebral tenderness Extremity Exam: normal inspection, normal range of motion, pelvis stable Skin Exam: normal color, warm, dry, No rash Lymphatic Exam: No adenopathy Results - Labs Lab/Micro Results: Accuchecks Date 04/24/19 Time 07:30 Accucheck Value: 242 Lab Results-Last 24 Hours 04/23/19 04/23/19 04/23/19 Range/Units 20:14 20:14 20:14 WBC 10.8 H (4.0-10.5) K/mm3 RBC 4.93 (4.1-5.4) M/mm3 Hgb 13.3 (12.0-16.0) gm/dl Hct 40.5 (35-47) % MCV 82.2 (78-100) fl MCH 27.0 (26-32) pg MCHC 32.8 (32-36) g/dl RDW 15.8 H (11.5-14.0) % Plt Count 225 (150-450) K/mm3 MPV 10.8 H (6-9.5) fl Gran % 71.6 H (36.0-66.0) % Eos # (Auto) 0.21 (0-0.5) Absolute Lymphs (auto) 2.03 (1.0-4.6) Absolute Monos (auto) 0.81 (0.0-1.3) Lymphocytes % 18.8 L (24.0-44.0) % Monocytes % 7.5 (0.0-12.0) % Eosinophils % 1.9 (0.00-5.0) % Basophils % 0.2 (0.0-0.4) % Absolute Granulocytes 7.73 H (1.4-6.9) Basophils # 0.02 (0-0.4) D-Dimer (215-500) ng/mL Sodium 139 (137-145) mmol/L Potassium 4.0 (3.5-5.1) mmol/L Chloride 102 (98-107) mmol/L Carbon Dioxide 29 (22-30) mmol/L Anion Gap 12.1 (5-15) MEQ/L BUN 11 (7-17) mg/dL Creatinine 0.73 (0.52-1.04) mg/dL Estimated GFR > 60.0 ML/MIN Glucose 242 H (74-106) mg/dL Calcium 9.4 (8.4-10.2) mg/dL Total Bilirubin 0.30 (0.2-1.3) mg/dL AST 28 (14-36) U/L ALT 29 (0-35) U/L Alkaline Phosphatase 137 H (38-126) U/L Creatine Kinase 77 (30-135) U/L Troponin I < 0.012 (0.000-0.034) ng/mL NT-Pro-B Natriuret Pep 256 (0-450) pg/mL Serum Total Protein 7.5 (6.3-8.2) g/dL Albumin 4.4 (3.5-5.0) g/dL Triglycerides (30-150) mg/dL Cholesterol (50-200) mg/dL LDL Cholesterol (30-100) mg/dL HDL Cholesterol (40-60) mg/dL Heart Disease Risk Ratio 04/23/19 04/23/19 04/24/19 Range/Units 20:14 22:30 02:05 WBC (4.0-10.5) K/mm3 RBC (4.1-5.4) M/mm3 Hgb (12.0-16.0) gm/dl Hct (35-47) % MCV (78-100) fl MCH (26-32) pg MCHC (32-36) g/dl RDW (11.5-14.0) % Plt Count (150-450) K/mm3 MPV (6-9.5) fl Gran % (36.0-66.0) % Eos # (Auto) (0-0.5) Absolute Lymphs (auto) (1.0-4.6) Absolute Monos (auto) (0.0-1.3) Lymphocytes % (24.0-44.0) % Monocytes % (0.0-12.0) % Eosinophils % (0.00-5.0) % Basophils % (0.0-0.4) % Absolute Granulocytes (1.4-6.9) Basophils # (0-0.4) D-Dimer 216 (215-500) ng/mL Sodium (137-145) mmol/L Potassium (3.5-5.1) mmol/L Chloride (98-107) mmol/L Carbon Dioxide (22-30) mmol/L Anion Gap (5-15) MEQ/L BUN (7-17) mg/dL Creatinine (0.52-1.04) mg/dL Estimated GFR ML/MIN Glucose (74-106) mg/dL Calcium (8.4-10.2) mg/dL Total Bilirubin (0.2-1.3) mg/dL AST (14-36) U/L ALT (0-35) U/L Alkaline Phosphatase (38-126) U/L Creatine Kinase (30-135) U/L Troponin I < 0.012 < 0.012 (0.000-0.034) ng/mL NT-Pro-B Natriuret Pep (0-450) pg/mL Serum Total Protein (6.3-8.2) g/dL Albumin (3.5-5.0) g/dL Triglycerides (30-150) mg/dL Cholesterol (50-200) mg/dL LDL Cholesterol (30-100) mg/dL HDL Cholesterol (40-60) mg/dL Heart Disease Risk Ratio 04/24/19 04/24/19 04/24/19 Range/Units 04:30 04:30 07:34 WBC (4.0-10.5) K/mm3 RBC (4.1-5.4) M/mm3 Hgb (12.0-16.0) gm/dl Hct (35-47) % MCV (78-100) fl MCH (26-32) pg MCHC (32-36) g/dl RDW (11.5-14.0) % Plt Count (150-450) K/mm3 MPV (6-9.5) fl Gran % (36.0-66.0) % Eos # (Auto) (0-0.5) Absolute Lymphs (auto) (1.0-4.6) Absolute Monos (auto) (0.0-1.3) Lymphocytes % (24.0-44.0) % Monocytes % (0.0-12.0) % Eosinophils % (0.00-5.0) % Basophils % (0.0-0.4) % Absolute Granulocytes (1.4-6.9) Basophils # (0-0.4) D-Dimer (215-500) ng/mL Sodium (137-145) mmol/L Potassium (3.5-5.1) mmol/L Chloride (98-107) mmol/L Carbon Dioxide (22-30) mmol/L Anion Gap (5-15) MEQ/L BUN (7-17) mg/dL Creatinine (0.52-1.04) mg/dL Estimated GFR ML/MIN Glucose (74-106) mg/dL Calcium (8.4-10.2) mg/dL Total Bilirubin (0.2-1.3) mg/dL AST (14-36) U/L ALT (0-35) U/L Alkaline Phosphatase (38-126) U/L Creatine Kinase (30-135) U/L Troponin I < 0.012 < 0.012 (0.000-0.034) ng/mL NT-Pro-B Natriuret Pep (0-450) pg/mL Serum Total Protein (6.3-8.2) g/dL Albumin (3.5-5.0) g/dL Triglycerides 212 H (30-150) mg/dL Cholesterol 181 (50-200) mg/dL LDL Cholesterol 111 H (30-100) mg/dL HDL Cholesterol 47 (40-60) mg/dL Heart Disease Risk Ratio 3.8 Accuchecks Date 04/24/19 Time 07:30 Accucheck Value: 242 - Radiology Impressions Radiology Exams & Impressions: Radiology Procedures Category Date Time Status CHEST 1 VIEW (PORTABLE) Stat Exams 04/23/19 19:28 Completed - Other Procedures and Tests Respiratory Therapy 04/25/19 05:00 EKG ROUTINE 04/26/19 05:00 EKG ROUTINE 04/27/19 05:00 EKG ROUTINE Assessment/Plan (1) Chest pain Current Visit: Yes Status: Acute Qualifiers: Chest pain type: unspecified Qualified Code(s): R07.9 - Chest pain, unspecified Assessment & Plan: PR ruled out. Code(s): R07.9 - CHEST PAIN, UNSPECIFIED (2) Hyperglycemia due to type 2 diabetes mellitus Current Visit: No Status: Acute Qualifiers: Diabetes mellitus mcc insulin use: with moth exterminator use Qualified Code( s): E11.65 - Type 2 diabetes mellitus with hyperglycemia; Z79.4 - termite treater ( current) use of insulin Code(s): E11.65 - TYPE 2 DIABETES MELLITUS WITH HYPERGLYCEMIA (3) HTN (hypertension) Current Visit: Yes Status: Chronic Qualifiers: Hypertension type: essential hypertension Qualified Code(s): I10 - Essential (primary) hypertension Code(s): I10 - ESSENTIAL (PRIMARY) HYPERTENSION (4) History of pulmonary embolism Current Visit: No Status: Chronic Code(s): Z86.711 - PERSONAL HISTORY OF PULMONARY EMBOLISM
--- NOTE | 2019-04-24 09:32 | PCM.DCORD ---
- Discharge Discharge Date: 04/24/19 Disposition: Home, Self-Care Condition: Stable Prescriptions: No Action Rivaroxaban [Xarelto] 20 mg PO QHS Atorvastatin Calcium 80 mg PO HS Levothyroxine Sodium 50 Mcg [Synthroid 50 Mcg] 1 - 2 tab PO UD lamoTRIgine [Lamictal] 200 mg PO BID Insulin Aspart [NovoLOG Insulin] 15 unit SQ AC Insulin Aspart [NovoLOG Insulin] 13 unit SQ BREAKFAST Duloxetine HCl 30 mg [Cymbalta 30 MG Capsule] 60 mg PO QAM Cyclosporine [Restasis] 1 drop .ROUTE BID Clonidine HCl 0.1 mg [Catapres 0.1 MG] 0.2 mg PO QAM Clonidine HCl 0.1 mg [Catapres 0.1 MG] 0.4 mg PO QHS Insulin Glargine [Lantus Insulin] 30 unit SQ QAM Insulin Glargine [Lantus Insulin] 8 unit SQ QHS Insulin Aspart [NovoLOG Insulin] 1 unit SQ AC Follow up with: PEDRO WEAVER MD [Primary Care Provider] - 1 Week
[2019-04-24] MEDS ORDERED: Cymbalta 30 MG Capsule PO SCH (10:00)
[2019-04-24] MEDS ORDERED: SYNTHROID 50 MCG PO SCH (10:00)
[2019-04-24] MEDS ORDERED: NON-FORMULARY ITEM (Cyclosporine [Restasis] 1 DROP) SCH (10:00)
[2019-04-24] MEDS ORDERED: Ecotrin 325 MG PO SCH (10:00)
[2019-04-24] MEDS ORDERED: ZOCOR 20MG PO SCH (22:00)
[2019-04-25] MEDS ORDERED: SYNTHROID 100 MCG PO SCH (10:00)
== END 2019-04-24 11:04 | disposition home or self-care (01) ==
LOC: ED 19:24 → MED SURG 21:36
PROVIDERS: ADMIT General Practice; ATTEND General Practice
DX: R07.9 Chest pain, unspecified (principal); E11.65 Type 2 diabetes mellitus with hyperglycemia; I10 Essential (primary) hypertension; E03.9 Hypothyroidism, unspecified; E78.00 Pure hypercholesterolemia, unspecified; Z86.711 Personal history of pulmonary embolism; Z79.899 Other long term (current) drug therapy
CPT/HCPCS: 36000; 36415; 71045; 80053; 80061; 82550; 82962; 83036; 83721; 83880; 84484; 85025; 85379; 93005; 93041; 93268; 94760; 96372; 96374; 96375; 99285; G0378; J1650; J2270; J2405; A9270-GY

== ENCOUNTER 2019-08-12 09:59 | Emergency (ER) | payer MEDICARE ==
--- NOTE | 2019-08-12 10:08 | ERPHSYRPT ---
- History of Present Illness Time Seen by Provider: 08/12/19 10:05 Source: patient Exam Limitations: no limitations Physician History: This is a 44-year-old insulin dependent white female who is obese, has hypothyroidism, hypertension, elevated cholesterol, chronic arrhythmia (SVT), history of pulmonary embolism, anxiety and depression. Patient symptoms of the chest pain began yesterday afternoon. Location is the left lateral chest underneath her breast, it radiates into her back on the left side, it is described as a sharp stabbing pain. Patient does not have shortness of breath associated with this. Patient states that she feels as though her blood sugar is elevated. In reviewing the patient's old charts from the emergency department, patient's blood sugar averages in the 200-300 range chronically. Patient has been seen in this emergency department several times for the same variety of issues. Patient is on Xarelto Timing/Duration: yesterday Severity: moderate Associated Symptoms: chest pain Allergies/Adverse Reactions: acetaminophen [From Percocet] Allergy (Verified 08/12/19 10:31) diazepam [From Valium] Allergy (Verified 08/12/19 10:31) hydrocodone [From [place]] Allergy (Verified 08/12/19 10:31) Iodinated Contrast Media Allergy (Verified 08/12/19 10:31) ketorolac [From Toradol] Allergy (Verified 08/12/19 10:31) oxycodone [From Percocet] Allergy (Verified 08/12/19 10:31) Sulfa (Sulfonamide Antibiotics) Allergy (Verified 08/12/19 10:31) tramadol [From Ultram] Allergy (Verified 08/12/19 10:31) Home Medications: Atorvastatin Calcium 80 mg PO HS 06/22/17 [History] Levothyroxine Sodium 50 Mcg [Synthroid 50 Mcg] 1 - 2 tab PO UD 06/22/17 [ History] Rivaroxaban [Xarelto] 20 mg PO QHS 06/22/17 [History] lamoTRIgine [Lamictal] 200 mg PO BID 06/22/17 [History] Insulin Aspart [NovoLOG Insulin] 13 unit SQ BREAKFAST 03/09/18 [History] Insulin Aspart [NovoLOG Insulin] 15 unit SQ AC 03/09/18 [History] Clonidine HCl 0.1 mg [Catapres 0.1 MG] 0.2 mg PO QAM 04/23/19 [History] Clonidine HCl 0.1 mg [Catapres 0.1 MG] 0.4 mg PO QHS 04/23/19 [History] Cyclosporine [Restasis] 1 drop .ROUTE BID 04/23/19 [History] Duloxetine HCl 30 mg [Cymbalta 30 MG Capsule] 60 mg PO QAM 04/23/19 [ History] Insulin Aspart [NovoLOG Insulin] 1 unit SQ AC 04/23/19 [History] Insulin Glargine [Lantus Insulin] 8 unit SQ QHS 04/23/19 [History] Insulin Glargine [Lantus Insulin] 30 unit SQ QAM 04/23/19 [History] Hx Tetanus, Diphtheria Vaccination/Date Given: Yes Hx Influenza Vaccination/Date Given: Yes Hx Pneumococcal Vaccination/Date Given: Yes Travel Risk - International Travel Have you traveled outside of the country in past 3 weeks: No Have you or anyone close to you been diagnosed with or: No Do your reside in a community with a known COVID-19 case?: Yes If Yes where:: [facility] - Coronavirus Screening Has patient experienced Coronavirus symptoms: No - Review of Systems Constitutional: No Symptoms Eyes: No Symptoms Ears, Nose, & Throat: No Symptoms Respiratory: No Symptoms Cardiac: Chest Pain, Palpitations (Chronic) Abdominal/Gastrointestinal: No Symptoms, No Abdominal Pain, No Nausea, No Vomiting, No Diarrhea Genitourinary Symptoms: No Symptoms Musculoskeletal: No Symptoms, No Injury Skin: No Symptoms Neurological: No Symptoms Psychological: No Symptoms Endocrine: No Symptoms Hematologic/Lymphatic: No Symptoms Immunological/Allergic: No Symptoms All Other Systems: Reviewed and Negative - Past Medical History Pertinent Past Medical History: Yes Neurological History: No Pertinent History ENT History: No Pertinent History Cardiac History: Arrhythmia, High Cholesterol Respiratory History: Pulmonary Embolism Endocrine Medical History: Diabetes Type II, Hypothyroidism Musculoskeletal History: No Pertinent History GI Medical History: No Pertinent History History: No Pertinent History Psycho-Social History: Anxiety, Depression Female Reproductive Disorders: Other Other Medical History: SVT, BLOOD CLOTS, blood clots , ovarian cysts - Past Surgical History Past Surgical History: Yes Neuro Surgical History: No Pertinent History Cardiac: Other Respiratory: No Pertinent History Gastrointestinal: Cholecystectomy Genitourinary: No Pertinent History Female Surgical History: Hysterectomy, Section Other Surgical History: ablation x3, IVC filter placement, - Social History Smoking Status: Never smoker Exposure to second hand smoke: No Drug Use: none Patient Lives Alone: No - Nursing Vital Signs Nursing Vital Signs: Initial Vital Signs Temperature 97.7 F 08/12/19 10:11 Pulse Rate 107 H 08/12/19 10:11 Respiratory Rate 18 08/12/19 10:11 Blood Pressure 216/102 08/12/19 10:11 O2 Sat by Pulse Oximetry 99 08/12/19 10:11 Pain Scale Pain Intensity 9 - Physical Exam General Appearance: no apparent distress, alert, anxiety, obese Eye Exam: PERRL/EOMI, eyes nml inspection Ears, Nose, Throat Exam: normal ENT inspection, moist mucous membranes Neck Exam: normal inspection, non-tender, supple, full range of motion Respiratory Exam: normal breath sounds, chest tenderness (Left side under her left breast), lungs clear, airway intact, No respiratory distress, No accessory muscle use, No wheezing Cardiovascular Exam: tachycardia (Mild. Heart rate is 103-106) Gastrointestinal/Abdomen Exam: No tenderness Pelvic Exam: not done Rectal Exam: not done Back Exam: normal inspection, normal range of motion, No CVA tenderness, No vertebral tenderness Extremity Exam: normal inspection, normal range of motion, pelvis stable Neurologic Exam: alert, oriented x 3, cooperative, state wildlife officer II-XII nml as tested Skin Exam: normal color, warm, dry Lymphatic Exam: No adenopathy SpO2 Interpretation: normal O2 Delivery: Room Air - Course Nursing assessment & vital signs reviewed: Yes EKG Interpreted by Me: RATE ([id number]), Sinus Rhythm, NORMAL AXIS, NORMAL INTERVALS, NORMAL QRS, Other (No comparison EKG available) Ordered Tests: Active Orders 24 hr Category Date Time Status Population Health Coach STAT Care 08/12/19 10:17 Active EKG-ER Only STAT Care 08/12/19 10:16 Active IV Insertion STAT Care 08/12/19 10:16 Active Pulse Oximetry (ED) STAT Care 08/12/19 10:16 Active CHEST 1 VIEW (PORTABLE) Stat Exams 08/12/19 10:17 Completed CBC W DIFF Stat Lab 08/12/19 10:45 Completed CMP Stat Lab 08/12/19 10:45 Completed D-DIMER QUANTITATIVE Stat Lab 08/12/19 10:45 Completed NT PRO BNP Stat Lab 08/12/19 10:45 Completed PROTIME WITH INR Stat Lab 08/12/19 10:45 Completed TROPONIN Q3H Lab 08/12/19 10:45 Completed TROPONIN Q3H Lab 08/12/19 13:30 Ordered TROPONIN Q3H Lab 08/12/19 16:30 Ordered TROPONIN Q3H Lab 08/12/19 19:30 Ordered TROPONIN Q3H Lab 08/12/19 22:30 Ordered UA W/RFX UR CULTURE Stat Lab 08/12/19 11:53 Completed Medication Summary Generic Name Dose Route Start Last Admin Trade Name Freq PRN Reason Stop Dose Admin Sodium Chloride 1,000 mls @ 100 mls/hr 08/12/19 10:45 08/12/19 11:31 Sodium Chloride 0.9% 1000 Ml IV 09/11/19 10:44 100 mls/hr .Q10H HARINDER Administration Discontinued Medications Generic Name Dose Route Start Last Admin Trade Name Freq PRN Reason Stop Dose Admin Aspirin 324 mg 08/12/19 10:16 08/12/19 11:31 Baby Aspirin 81 Mg Chew PO 08/12/19 10:17 324 mg STAT ONE Administration Aspirin Confirm 08/12/19 10:43 Baby Aspirin 81 Mg Chew Administered 08/12/19 10:44 Dose 324 mg .ROUTE .STK-MED ONE Insulin Human Regular 18 unit 08/12/19 11:24 08/12/19 11:54 Humulin R IV 08/12/19 11:25 18 unit STAT ONE Administration Insulin Human Regular Confirm 08/12/19 11:54 Humulin R Administered 08/12/19 11:55 Dose 18 unit .ROUTE .STK-MED ONE Morphine Sulfate 4 mg 08/12/19 10:16 08/12/19 11:32 Morphine Sulfate 4 Mg Inj IV 08/12/19 10:17 4 mg STAT ONE Administration Morphine Sulfate Confirm 08/12/19 10:43 Morphine Sulfate 4 Mg Inj Administered 08/12/19 10:44 Dose 4 mg .ROUTE .STK-MED ONE Ondansetron HCl 4 mg 08/12/19 10:16 08/12/19 11:32 Zofran 4 Mg/2 Ml Vial IV 08/12/19 10:17 4 mg STAT ONE Administration Ondansetron HCl Confirm 08/12/19 10:42 Zofran 4 Mg/2 Ml Vial Administered 08/12/19 10:43 Dose 4 mg .ROUTE .STK-MED ONE Lab/Rad Data: Laboratory Result Diagrams 08/12/19 10:45 08/12/19 10:45 Laboratory Results 08/12/19 08/12/19 08/12/19 Range/Units 11:53 10:45 10:45 WBC (4.0-10.5) K/mm3 RBC (4.1-5.4) M/mm3 Hgb (12.0-16.0) gm/dl Hct (35-47) % MCV (78-100) fl MCH (26-32) pg MCHC (32-36) g/dl RDW (11.5-14.0) % Plt Count (150-450) K/mm3 MPV (7.5-11.0) fl Gran % (36.0-66.0) % Eos # (Auto) (0-0.5) Absolute Lymphs (auto) (1.0-4.6) Absolute Monos (auto) (0.0-1.3) Lymphocytes % (24.0-44.0) % Monocytes % (0.0-12.0) % Eosinophils % (0.00-5.0) % Basophils % (0.0-0.4) % Absolute Granulocytes (1.4-6.9) Basophils # (0-0.4) PT 15.1 H (9.95-12.35) SECONDS INR 1.33 (0.8-3.0) D-Dimer < 215 L (215-500) ng/mL Sodium (137-145) mmol/L Potassium (3.5-5.1) mmol/L Chloride (98-107) mmol/L Carbon Dioxide (22-30) mmol/L Anion Gap (5-15) MEQ/L BUN (7-17) mg/dL Creatinine (0.52-1.04) mg/dL Estimated GFR ML/MIN Glucose (74-106) mg/dL Calcium (8.4-10.2) mg/dL Total Bilirubin (0.2-1.3) mg/dL AST (14-36) U/L ALT (0-35) U/L Alkaline Phosphatase (38-126) U/L Troponin I < 0.012 (0.000-0.034) ng/mL NT-Pro-B Natriuret Pep (0-450) pg/mL Serum Total Protein (6.3-8.2) g/dL Albumin (3.5-5.0) g/dL Urine Color YELLOW (YELLOW) Urine Appearance CLOUDY (CLEAR) Urine pH 5.0 (5-6) Ur Specific [place] 1.028 (1.005-1.025) Urine Protein NEGATIVE (Negative) Urine Ketones TRACE (NEGATIVE) Urine Blood SMALL (0-5) Robby/ul Urine Nitrite NEGATIVE (NEGATIVE) Urine Bilirubin NEGATIVE (NEGATIVE) Urine Urobilinogen NEGATIVE (0-1) mg/dL Ur Leukocyte Esterase NEGATIVE (NEGATIVE) Urine WBC (Auto) NONE (0-5) /HPF Urine RBC (Auto) NONE (0-2) /HPF U Epithel Cells (Auto) MODERATE (FEW) /HPF Urine Mucus (Auto) SLIGHT (NEGATIVE) /HPF Urine Culture Reflexed NO (NO) Urine Glucose >=500 (NEGATIVE) mg/dL 08/12/19 08/12/19 Range/Units 10:45 10:45 WBC 6.5 (4.0-10.5) K/mm3 RBC 4.53 (4.1-5.4) M/mm3 Hgb 12.2 (12.0-16.0) gm/dl Hct 37.7 (35-47) % MCV 83.2 (78-100) fl MCH 26.9 (26-32) pg MCHC 32.4 (32-36) g/dl RDW 13.7 (11.5-14.0) % Plt Count 215 (150-450) K/mm3 MPV 11.4 H (7.5-11.0) fl Gran % 69.0 H (36.0-66.0) % Eos # (Auto) 0.12 (0-0.5) Absolute Lymphs (auto) 1.41 (1.0-4.6) Absolute Monos (auto) 0.48 (0.0-1.3) Lymphocytes % 21.6 L (24.0-44.0) % Monocytes % 7.3 (0.0-12.0) % Eosinophils % 1.8 (0.00-5.0) % Basophils % 0.3 (0.0-0.4) % Absolute Granulocytes 4.51 (1.4-6.9) Basophils # 0.02 (0-0.4) PT (9.95-12.35) SECONDS INR (0.8-3.0) D-Dimer (215-500) ng/mL Sodium 136 L (137-145) mmol/L Potassium 4.1 (3.5-5.1) mmol/L Chloride 102 (98-107) mmol/L Carbon Dioxide 22 (22-30) mmol/L Anion Gap 16.0 H (5-15) MEQ/L BUN 8 (7-17) mg/dL Creatinine 0.53 (0.52-1.04) mg/dL Estimated GFR > 60.0 ML/MIN Glucose 480 H (74-106) mg/dL Calcium 9.4 (8.4-10.2) mg/dL Total Bilirubin 0.30 (0.2-1.3) mg/dL AST 36 (14-36) U/L ALT 33 (0-35) U/L Alkaline Phosphatase 180 H (38-126) U/L Troponin I (0.000-0.034) ng/mL NT-Pro-B Natriuret Pep 203 (0-450) pg/mL Serum Total Protein 6.8 (6.3-8.2) g/dL Albumin 4.2 (3.5-5.0) g/dL Urine Color (YELLOW) Urine Appearance (CLEAR) Urine pH (5-6) Ur Specific [place] (1.005-1.025) Urine Protein (Negative) Urine Ketones (NEGATIVE) Urine Blood (0-5) Robby/ul Urine Nitrite (NEGATIVE) Urine Bilirubin (NEGATIVE) Urine Urobilinogen (0-1) mg/dL Ur Leukocyte Esterase (NEGATIVE) Urine WBC (Auto) (0-5) /HPF Urine RBC (Auto) (0-2) /HPF U Epithel Cells (Auto) (FEW) /HPF Urine Mucus (Auto) (NEGATIVE) /HPF Urine Culture Reflexed (NO) Urine Glucose (NEGATIVE) mg/dL - Progress Progress: improved, re-examined Progress Note: 08/12/19 11:57 Patient states that she is feeling better. She no longer has chest pain. Chest x-ray reveals no acute pulmonary process. 08/12/19 12:04 Differential diagnosis: Chest wall pain, myocardial infarction, pulmonary embolism, pneumonia, hypertension, anxiety, hyperglycemia, DKA Decision making: This patient is symptomatically improved. Her chest pain has resolved. Patient's blood sugar routinely runs between 200-300. Today her blood sugar is 480. Patient has only trace ketones. I do not think the patient has diabetic ketoacidosis significance. If it is present it is very early. Patient has received a liter of normal saline. She is feeling much improved. Her cardiac markers, d-dimer and BNP levels are normal. We will discharge the patient to home. Counseled pt/family regarding: lab results, diagnosis, need for follow-up, rad results - Departure Departure Disposition: Home Clinical Impression: Non-cardiac chest pain, Hyperglycemia Condition: Stable Critical Care Time: No Referrals: PEDRO WEAVER MD [Primary Care Provider] - Additional Instructions: Monitor your blood glucose closely. Treat your elevated blood glucose as prescribed by your outpatient physician. Follow-up with your primary care physician for further management.
[2019-08-12] MEDS ORDERED: Zofran 4 MG/2 ML VIAL IV ONE (10:16)
[2019-08-12] MEDS ORDERED: MORPHINE SULFATE 4 MG INJ IV ONE (10:16)
[2019-08-12] MEDS ORDERED: BABY ASPIRIN 81 MG CHEW PO ONE (10:16)
[2019-08-12] MEDS ORDERED: Zofran 4 MG/2 ML VIAL ONE (10:42)
[2019-08-12] MEDS ORDERED: BABY ASPIRIN 81 MG CHEW ONE (10:43)
[2019-08-12] MEDS ORDERED: MORPHINE SULFATE 4 MG INJ ONE (10:43)
[2019-08-12] MEDS ORDERED: Sodium Chloride 0.9% 1000 ML 1,000 ML ONE (10:44)
[2019-08-12] MEDS ORDERED: Sodium Chloride 0.9% 1000 ML 1,000 ML IV SCH (10:45)
[2019-08-12 10:51] LABS: Absolute Neutrophil Ct (ANC) 4.51 (1.4-6.9); BASOPHIL % 0.3 % (0.0-0.4); Basophil (Absolute #) 0.02 (0-0.4); Eosinophil % 1.8 % (0.00-5.0); Eosinophil (Absolute #) 0.12 (0-0.5); Hematocrit 37.7 % (35-47); Hemoglobin 12.2 gm/dl (12.0-16.0); Lymphocyte (Absolute #) 1.41 (1.0-4.6); Lymphocytes % 21.6 % (24.0-44.0); Mean Cell Volume 83.2 fl (78-100); Mean Corpuscular Hemoglobin 26.9 pg (26-32); Mean Corpuscular Hgb Concent. 32.4 g/dl (32-36); Mean Platelet Volume 11.4 fl (7.5-11.0); Monocyte (Absolute #) 0.48 (0.0-1.3); Monocytes % 7.3 % (0.0-12.0); Platelet Count 215 K/mm3 (150-450); Red Blood Count 4.53 M/mm3 (4.1-5.4); Red Cell Distribution Width 13.7 % (11.5-14.0); White Blood Count 6.5 K/mm3 (4.0-10.5)
--- NOTE | 2019-08-12 11:00 | XRAY ---
Indication: Chest pain. Comparison: April 23, 2019. Portable chest again demonstrates normal heart, lungs, and bony thorax.
[2019-08-12 11:02] LABS: INR 1.33 (0.8-3.0); PROTIME 15.1 SECONDS (9.95-12.35)
[2019-08-12 11:12] LABS: ALBUMIN 4.2 g/dL (3.5-5.0); ALKALINE PHOSPHATASE 180 U/L (38-126); BLOOD UREA NITROGEN 8 mg/dL (7-17); CHLORIDE 102 mmol/L (98-107); Calcium 9.4 mg/dL (8.4-10.2); Carbon Dioxide 22 mmol/L (22-30); Creatinine 1 0.53 mg/dL (0.52-1.04); Glucose 480 mg/dL (74-106); NT PRO BNP 203 pg/mL (0-450); Potassium 4.1 mmol/L (3.5-5.1); SGOT/AST 36 U/L (14-36); SGPT/ALT 33 U/L (0-35); SODIUM 136 mmol/L (137-145); Total Protein 6.8 g/dL (6.3-8.2)
[2019-08-12 11:15] LABS: D-DIMER QUANTITATIVE < 215 ng/mL (215-500)
[2019-08-12] MEDS ORDERED: HUMULIN R IV ONE (11:24)
[2019-08-12 11:54] LABS: Appearance CLOUDY (CLEAR); Bilirubin NEGATIVE (NEGATIVE); Blood SMALL Ery/ul (0-5); Epithelial Cells MODERATE /HPF (FEW); Glucose >=500 mg/dL (NEGATIVE); Ketones TRACE (NEGATIVE); Leukocyte Esterase NEGATIVE (NEGATIVE); Mucus SLIGHT /HPF (NEGATIVE); Nitrite NEGATIVE (NEGATIVE); Protein,Urine Dip NEGATIVE (Negative); Specific Gravity 1.028 (1.005-1.025); Urobilinogen NEGATIVE mg/dL (0-1)
[2019-08-12] MEDS ORDERED: HUMULIN R ONE (11:54)
[2019-08-12] MEDS ORDERED: BENADRYL 50 MG/ML IV ONE (12:18)
[2019-08-12] MEDS ORDERED: BENADRYL 50 MG/ML ONE (12:26)
[2019-08-12 14:04] VITALS: BP 152/80; PULSE 82; O2SAT 98
== END 2019-08-12 13:59 | disposition home or self-care (01) ==
LOC: ED 09:59
DX: R07.89 Other chest pain (principal); E11.65 Type 2 diabetes mellitus with hyperglycemia; Z79.4 Long term (current) use of insulin; Z79.899 Other long term (current) drug therapy; Z79.01 Long term (current) use of anticoagulants; I10 Essential (primary) hypertension; E03.9 Hypothyroidism, unspecified; E78.00 Pure hypercholesterolemia, unspecified
CPT/HCPCS: 36000; 36415; 71045; 80053; 81001; 82962; 83880; 84484; 85025; 85379; 85610; 93005; 93041; 94760; 96360; 96361; 96374; 96375; 99285; J1200; J1815; J2270; J2405; A9270-GY

== ENCOUNTER 2019-08-18 21:45 | Emergency (ER) | payer MEDICARE ==
[2019-08-18] MEDS ORDERED: Inapsine 5 MG/2 ML IV ONE (22:15)
[2019-08-18] MEDS ORDERED: BENADRYL 50 MG/ML IV ONE (22:15)
[2019-08-18] MEDS ORDERED: TORAdol 30 mg Injection IV ONE (22:15)
[2019-08-18] MEDS ORDERED: Sodium Chloride 0.9% 1000 ML 1,000 ML IV STA ×2 (22:15→22:19)
--- NOTE | 2019-08-18 22:26 | ERPHSYRPT ---
- History of Present Illness Time Seen by Provider: 08/18/19 21:47 Historian: patient Exam Limitations: no limitations Patient Subjective Stated Complaint: PT TO ER WITH COMPLAINTS OF ABDOMINAL PAIN IN RLQ. PT WITH NAUSEA. PT ALSO STATES HER GLUCOMETER STATED HER SUGAR WAS HIGH. Triage Nursing Assessment: PT TO ER WITH ABDOMINAL PAIN AND HIGH GLUCOSE. PT A& OX4. APPEARS TO BE IN NO DISTRESS. TENDER UPON PALPATION. Physician History: Patient is here with abdominal pain. States is been going on 1 week. No falls no trauma. Patient states her blood sugar also has been reading high at home. Patient is a diabetic and on insulin. Patient does have a history of some chronic abdominal pain. Does have previous hysterectomy. She is allergic to IV contrast. She states her abdominal pain has not gotten any worse from last week. It does go away intermittently. She is having regular bowel and bladder movements. Location: lower abdomen Quality: sharp Radiation: none Severity: moderate Duration: 1 week Timing: intermittent Modifying factors/associated signs and symptoms: elevated blood sugar Allergies/Adverse Reactions: acetaminophen [From Percocet] Allergy (Verified 08/12/19 10:31) diazepam [From Valium] Allergy (Verified 08/12/19 10:31) hydrocodone [From [place]] Allergy (Verified 08/12/19 10:31) Iodinated Contrast Media Allergy (Verified 08/12/19 10:31) ketorolac [From Toradol] Allergy (Verified 08/12/19 10:31) oxycodone [From Percocet] Allergy (Verified 08/12/19 10:31) Sulfa (Sulfonamide Antibiotics) Allergy (Verified 08/12/19 10:31) tramadol [From Ultram] Allergy (Verified 08/12/19 10:31) Home Medications: Atorvastatin Calcium 80 mg PO HS 06/22/17 [History] Levothyroxine Sodium 50 Mcg [Synthroid 50 Mcg] 1 - 2 tab PO UD 06/22/17 [ History] Rivaroxaban [Xarelto] 20 mg PO QHS 06/22/17 [History] lamoTRIgine [Lamictal] 200 mg PO BID 06/22/17 [History] Insulin Aspart [NovoLOG Insulin] 13 unit SQ BREAKFAST 03/09/18 [History] Insulin Aspart [NovoLOG Insulin] 15 unit SQ AC 03/09/18 [History] Clonidine HCl 0.1 mg [Catapres 0.1 MG] 0.2 mg PO QAM 04/23/19 [History] Clonidine HCl 0.1 mg [Catapres 0.1 MG] 0.4 mg PO QHS 04/23/19 [History] Cyclosporine [Restasis] 1 drop .ROUTE BID 04/23/19 [History] Duloxetine HCl 30 mg [Cymbalta 30 MG Capsule] 60 mg PO QAM 04/23/19 [ History] Insulin Aspart [NovoLOG Insulin] 1 unit SQ AC 04/23/19 [History] Insulin Glargine [Lantus Insulin] 8 unit SQ QHS 04/23/19 [History] Insulin Glargine [Lantus Insulin] 30 unit SQ QAM 04/23/19 [History] Hx Tetanus, Diphtheria Vaccination/Date Given: Yes Hx Influenza Vaccination/Date Given: Yes Hx Pneumococcal Vaccination/Date Given: Yes Immunizations Up to Date: Yes Travel Risk - International Travel Have you traveled outside of the country in past 3 weeks: No Have you or anyone close to you been diagnosed with or: No Do your reside in a community with a known COVID-19 case?: Yes If Yes where:: [place] - Coronavirus Screening Has patient experienced Coronavirus symptoms: No - Review of Systems Constitutional: No Fever, No Chills Eyes: No Symptoms Ears, Nose, & Throat: No Symptoms Respiratory: No Cough, No Dyspnea Cardiac: No Chest Pain, No Edema, No Syncope Abdominal/Gastrointestinal: Abdominal Pain, Nausea, No Vomiting, No Diarrhea Genitourinary Symptoms: No Dysuria Musculoskeletal: No Back Pain, No Neck Pain Skin: No Rash Neurological: No Dizziness, No Focal Weakness, No Sensory Changes Psychological: No Symptoms Endocrine: No Symptoms All Other Systems: Reviewed and Negative - Past Medical History Pertinent Past Medical History: Yes Neurological History: No Pertinent History ENT History: No Pertinent History Cardiac History: Hypertension Respiratory History: Pulmonary Embolism Endocrine Medical History: Diabetes Type II Musculoskeletal History: No Pertinent History GI Medical History: No Pertinent History History: No Pertinent History Psycho-Social History: Anxiety, Depression Female Reproductive Disorders: Other Other Medical History: SVT, BLOOD CLOTS, blood clots , ovarian cysts - Past Surgical History Past Surgical History: Yes Neuro Surgical History: No Pertinent History Cardiac: Other Respiratory: No Pertinent History Gastrointestinal: Cholecystectomy Genitourinary: No Pertinent History Female Surgical History: Hysterectomy Other Surgical History: ablation x3, IVC filter placement, - Social History Smoking Status: Never smoker Exposure to second hand smoke: No Drug Use: none Patient Lives Alone: Yes - Female History Hx Now: No - Nursing Vital Signs Nursing Vital Signs: Initial Vital Signs Pulse Rate 82 08/18/19 22:02 Respiratory Rate 19 08/18/19 22:02 Blood Pressure 176/94 08/18/19 22:02 O2 Sat by Pulse Oximetry 100 08/18/19 22:02 Pain Scale Pain Intensity 8 - Physical Exam General Appearance: no apparent distress, alert Eye Exam: PERRL/EOMI, eyes nml inspection Ears, Nose, Throat Exam: normal ENT inspection, pharynx normal, moist mucous membranes Neck Exam: normal inspection, non-tender, supple, full range of motion Respiratory Exam: normal breath sounds, lungs clear, No respiratory distress Cardiovascular Exam: regular rate/rhythm, normal heart sounds Gastrointestinal/Abdomen Exam: soft, tenderness (Mild lower abdominal tenderness without rebound or guarding. No overlying skin changes.), No mass Back Exam: normal inspection, normal range of motion, No CVA tenderness, No vertebral tenderness Extremity Exam: normal inspection, normal range of motion, pelvis stable Neurologic Exam: alert, oriented x 3, cooperative, normal mood/affect, nml cerebellar function, sensation nml, No motor deficits Skin Exam: normal color, warm, dry SpO2: 100 Ordered Tests: Active Orders 24 hr Category Date Time Status EKG-ER Only STAT Care 08/18/19 22:15 Active IV Insertion STAT Care 08/18/19 22:15 Active ABDOMEN AND PELVIS W/0 CONTRAS [CT] Stat Exams 08/18/19 22:16 Taken CBC W DIFF Stat Lab 08/18/19 23:55 Completed CMP Stat Lab 08/18/19 23:55 Received HCG QUALITATIVE,SERUM Stat Lab 08/18/19 23:55 Received LIPASE Stat Lab 08/18/19 23:55 Received TROPONIN Q3H Lab 08/18/19 23:55 Received TROPONIN Q3H Lab 08/19/19 01:30 Ordered TROPONIN Q3H Lab 08/19/19 04:30 Ordered TROPONIN Q3H Lab 08/19/19 07:30 Ordered TROPONIN Q3H Lab 08/19/19 10:30 Ordered UA W/RFX UR CULTURE Stat Lab 08/18/19 23:20 Completed Medication Summary Discontinued Medications Generic Name Dose Route Start Last Admin Trade Name Freq PRN Reason Stop Dose Admin Diphenhydramine HCl 25 mg 08/18/19 22:15 Benadryl 50 Mg/Ml IV 08/18/19 22:16 STAT ONE Diphenhydramine HCl Confirm 08/18/19 22:31 Benadryl 50 Mg/Ml Administered 08/18/19 22:32 Dose 50 mg .ROUTE .STK-MED ONE Droperidol 1.25 mg 08/18/19 22:15 Inapsine 5 Mg/2 Ml IV 08/18/19 22:16 STAT ONE Droperidol Confirm 08/18/19 22:31 Inapsine 5 Mg/2 Ml Administered 08/18/19 22:32 Dose 5 mg .ROUTE .STK-MED ONE Sodium Chloride 1,000 mls @ 999 mls/hr 08/18/19 22:15 Sodium Chloride 0.9% 1000 Ml IV 08/18/19 23:15 .Q1H1M STA Sodium Chloride 1,000 mls @ 999 mls/hr 08/18/19 22:19 Sodium Chloride 0.9% 1000 Ml IV 08/18/19 23:19 .Q1H1M STA Sodium Chloride Confirm 08/18/19 22:31 Sodium Chloride 0.9% 1000 Ml Administered 08/18/19 22:32 Dose 2,000 mls @ ud .ROUTE .STK-MED ONE Ketorolac Tromethamine 30 mg 08/18/19 22:15 Toradol 30 Mg Injection IV 08/18/19 22:16 STAT ONE Ketorolac Tromethamine Confirm 08/18/19 22:31 Toradol 30 Mg Injection Administered 08/18/19 22:32 Dose 30 mg .ROUTE .STK-MED ONE Lab/Rad Data: Laboratory Result Diagrams 08/18/19 23:55 Laboratory Results 08/18/19 08/18/19 Range/Units 23:55 23:20 WBC 7.9 (4.0-10.5) K/mm3 RBC 4.67 (4.1-5.4) M/mm3 Hgb 12.5 (12.0-16.0) gm/dl Hct 38.2 (35-47) % MCV 81.8 (78-100) fl MCH 26.8 (26-32) pg MCHC 32.7 (32-36) g/dl RDW 13.5 (11.5-14.0) % Plt Count 182 (150-450) K/mm3 MPV 11.5 H (7.5-11.0) fl Gran % 57.5 (36.0-66.0) % Eos # (Auto) 0.30 (0-0.5) Absolute Lymphs (auto) 2.36 (1.0-4.6) Absolute Monos (auto) 0.66 (0.0-1.3) Lymphocytes % 29.9 (24.0-44.0) % Monocytes % 8.4 (0.0-12.0) % Eosinophils % 3.8 (0.00-5.0) % Basophils % 0.4 (0.0-0.4) % Absolute Granulocytes 4.54 (1.4-6.9) Basophils # 0.03 (0-0.4) Urine Color STRAW (YELLOW) Urine Appearance CLEAR (CLEAR) Urine pH 6.0 (5-6) Ur Specific [place] 1.028 (1.005-1.025) Urine Protein NEGATIVE (Negative) Urine Ketones NEGATIVE (NEGATIVE) Urine Blood NEGATIVE (0-5) Robby/ul Urine Nitrite NEGATIVE (NEGATIVE) Urine Bilirubin NEGATIVE (NEGATIVE) Urine Urobilinogen NEGATIVE (0-1) mg/dL Ur Leukocyte Esterase NEGATIVE (NEGATIVE) Urine WBC (Auto) 0-2 (0-5) /HPF U Epithel Cells (Auto) RARE (FEW) /HPF Urine Mucus (Auto) SLIGHT (NEGATIVE) /HPF Urine Culture Reflexed NO (NO) Urine Glucose >=500 (NEGATIVE) mg/dL - Progress Progress: improved Progress Note: 08/18/19 22:26 differential diagnosis includes kidney stone, compression fracture, infection, UTI, triple AAA - basic labs including: CBC, lipase, CMP, UA, EKG - insert IV for fluids, pain meds, nausea control - consider imaging: CT ab/pelvis 08/19/19 00:12 CT scan was unremarkable. Patient was feeling better with medication here. No UTI. Counseled pt/family regarding: lab results, diagnosis, need for follow-up, rad results - Departure Departure Disposition: Home Clinical Impression: Hyperglycemia due to type 2 diabetes mellitus Condition: Stable Critical Care Time: No Referrals: PEDRO WEAVER MD [Primary Care Provider] - Instructions: Acute Abdomen (Belly Pain) Prescriptions: Ondansetron ODT 4 MG [Zofran Odt 4 mg] 4 mg PO Q6H PRN PRN #10 tab.rapdis PRN Reason: Vomiting
[2019-08-18] MEDS ORDERED: BENADRYL 50 MG/ML ONE (22:31)
[2019-08-18] MEDS ORDERED: Inapsine 5 MG/2 ML ONE (22:31)
[2019-08-18] MEDS ORDERED: Sodium Chloride 0.9% 1000 ML 2,000 ML ONE (22:31)
[2019-08-18] MEDS ORDERED: TORAdol 30 mg Injection ONE (22:31)
[2019-08-18 23:27] LABS: Appearance CLEAR (CLEAR); Bilirubin NEGATIVE (NEGATIVE); Blood NEGATIVE Ery/ul (0-5); Epithelial Cells RARE /HPF (FEW); Glucose >=500 mg/dL (NEGATIVE); Ketones NEGATIVE (NEGATIVE); Leukocyte Esterase NEGATIVE (NEGATIVE); Mucus SLIGHT /HPF (NEGATIVE); Nitrite NEGATIVE (NEGATIVE); Protein,Urine Dip NEGATIVE (Negative); Specific Gravity 1.028 (1.005-1.025); Urobilinogen NEGATIVE mg/dL (0-1); WBC 0-2 /HPF (0-5)
[2019-08-18 23:59] LABS: Absolute Neutrophil Ct (ANC) 4.54 (1.4-6.9); BASOPHIL % 0.4 % (0.0-0.4); Basophil (Absolute #) 0.03 (0-0.4); Eosinophil % 3.8 % (0.00-5.0); Hematocrit 38.2 % (35-47); Hemoglobin 12.5 gm/dl (12.0-16.0); Lymphocyte (Absolute #) 2.36 (1.0-4.6); Lymphocytes % 29.9 % (24.0-44.0); Mean Cell Volume 81.8 fl (78-100); Mean Corpuscular Hemoglobin 26.8 pg (26-32); Mean Corpuscular Hgb Concent. 32.7 g/dl (32-36); Mean Platelet Volume 11.5 fl (7.5-11.0); Monocyte (Absolute #) 0.66 (0.0-1.3); Monocytes % 8.4 % (0.0-12.0); Neutrophil % 57.5 % (36.0-66.0); Platelet Count 182 K/mm3 (150-450); Red Blood Count 4.67 M/mm3 (4.1-5.4); Red Cell Distribution Width 13.5 % (11.5-14.0); White Blood Count 7.9 K/mm3 (4.0-10.5)
[2019-08-19 00:10] LABS: ALBUMIN 4.2 g/dL (3.5-5.0); ALKALINE PHOSPHATASE 163 U/L (38-126); ANION GAP 17.8 MEQ/L (5-15); BLOOD UREA NITROGEN 6 mg/dL (7-17); CHLORIDE 102 mmol/L (98-107); Calcium 9.1 mg/dL (8.4-10.2); Carbon Dioxide 18 mmol/L (22-30); Creatinine 1 0.46 mg/dL (0.52-1.04); Glucose 381 mg/dL (74-106); LIPASE 154 U/L (23-300); Potassium 4.6 mmol/L (3.5-5.1); SGOT/AST 45 U/L (14-36); SGPT/ALT 34 U/L (0-35); SODIUM 134 mmol/L (137-145); Total Protein 7.4 g/dL (6.3-8.2)
[2019-08-19 00:14] VITALS: O2SAT 100
[2019-08-19 03:54] VITALS: BP 119/74; PULSE 76
[2019-08-19 04:31] LABS: Slide Review 1 YES
--- NOTE | 2019-08-19 09:08 | XRAY ---
Indication: Right lower quadrant pain. Nausea. Multiple contiguous axial images obtained through the abdomen and pelvis without contrast as ordered. Comparison: March 10, 2018. Lung bases are clear. Heart is not enlarged. Stomach is mildly distended with food/fluid. Noncontrasted stomach and bowel loops appear nonobstructed. Normal appendix with now tiny appendicolith at base of appendix. There is now mild diffuse fecal debris throughout including rectum. Again previous cholecystectomy, partial hysterectomy, and IVC filter in situ. No free fluid/air. Remaining liver, pancreas, spleen, adrenal glands, kidneys, ureters, bladder, and aorta appear unremarkable for noncontrast exam. Osseous structures intact. No ventral or inguinal hernias. Impression: 1. New tiny appendicolith without appendicitis. 2. New diffuse fecal stasis without obstruction. 3. No acute intra-abdominal/pelvic abnormalities on this noncontrast exam. Comment: Preliminary interpretation was made by [facility]. No critical discrepancy.
== END 2019-08-19 01:45 | disposition home or self-care (01) ==
LOC: ED 21:45
DX: E11.65 Type 2 diabetes mellitus with hyperglycemia (principal); Z79.4 Long term (current) use of insulin; R10.31 Right lower quadrant pain; I10 Essential (primary) hypertension; Z79.01 Long term (current) use of anticoagulants; Z79.899 Other long term (current) drug therapy; Z86.711 Personal history of pulmonary embolism; F41.9 Anxiety disorder, unspecified; F32.9 Major depressive disorder, single episode, unspecified; N83.209 Unspecified ovarian cyst, unspecified side
CPT/HCPCS: 36000; 36415; 74176; 80053; 81001; 81025; 82962; 83690; 84484; 85025; 93005; 96360; 96374; 96375; 99284; J1200; J1885

== ENCOUNTER 2019-10-01 20:50 | Inpatient (IN) | payer MEDICARE ==
--- NOTE | 2019-10-01 21:00 | ERPHSYRPT ---
- History of Present Illness Time Seen by Provider: 10/01/19 21:00 Source: patient Exam Limitations: no limitations Physician History: A 44-year-old insulin-dependent diabetic, with hypertension who is obese and did not eat all 3 meals today. She did not take her short acting insulin but did take her long-acting insulin this morning and in the evening. Patient blood sugar was in the 50s this evening. She did not intervene with food intake. He denies chest pain she denies shortness of breath she denies abdominal pain. Patient states ordinarily, when her blood sugar gets low they often have to admit her to the hospital. She does not complain of nausea vomiting or diarrhea. Timing/Duration: today, gradual onset Severity: moderate Associated Symptoms: weakness Allergies/Adverse Reactions: acetaminophen [From Percocet] Allergy (Verified 10/01/19 21:13) diazepam [From Valium] Allergy (Verified 10/01/19 21:13) hydrocodone [From Delmar] Allergy (Verified 10/01/19 21:13) Iodinated Contrast Media Allergy (Verified 10/01/19 21:13) ketorolac [From Toradol] Allergy (Verified 10/01/19 21:13) oxycodone [From Percocet] Allergy (Verified 10/01/19 21:13) Sulfa (Sulfonamide Antibiotics) Allergy (Verified 10/01/19 21:13) tramadol [From Ultram] Allergy (Verified 10/01/19 21:13) Home Medications: Atorvastatin Calcium 80 mg PO HS 06/22/17 [History] Levothyroxine Sodium 50 Mcg [Synthroid 50 Mcg] 1 - 2 tab PO UD 06/22/17 [ History] Rivaroxaban [Xarelto] 20 mg PO QHS 06/22/17 [History] lamoTRIgine [Lamictal] 200 mg PO BID 06/22/17 [History] Insulin Aspart [NovoLOG Insulin] 13 unit SQ BREAKFAST 03/09/18 [History] Insulin Aspart [NovoLOG Insulin] 15 unit SQ AC 03/09/18 [History] Clonidine HCl 0.1 mg [Catapres 0.1 MG] 0.2 mg PO QAM 04/23/19 [History] Clonidine HCl 0.1 mg [Catapres 0.1 MG] 0.4 mg PO QHS 04/23/19 [History] Cyclosporine [Restasis] 1 drop .ROUTE BID 04/23/19 [History] Duloxetine HCl 30 mg [Cymbalta 30 MG Capsule] 60 mg PO QAM 04/23/19 [ History] Insulin Aspart [NovoLOG Insulin] 1 unit SQ AC 04/23/19 [History] Insulin Glargine [Lantus Insulin] 35 unit SQ QHS 04/23/19 [History] Insulin Glargine [Lantus Insulin] 50 unit SQ QAM 04/23/19 [History] Hx Tetanus, Diphtheria Vaccination/Date Given: Yes Hx Influenza Vaccination/Date Given: Yes Hx Pneumococcal Vaccination/Date Given: Yes Travel Risk - International Travel Have you traveled outside of the country in past 3 weeks: No Have you or anyone close to you been diagnosed with or: No Do your reside in a community with a known COVID-19 case?: Yes If Yes where:: [facility] - Coronavirus Screening Has patient experienced Coronavirus symptoms: No - Review of Systems Constitutional: Weakness Eyes: No Symptoms Ears, Nose, & Throat: No Symptoms Respiratory: No Symptoms Cardiac: No Symptoms Abdominal/Gastrointestinal: No Symptoms Genitourinary Symptoms: No Symptoms Musculoskeletal: No Symptoms Skin: No Symptoms Neurological: No Symptoms Endocrine: No Symptoms Hematologic/Lymphatic: No Symptoms Immunological/Allergic: No Symptoms All Other Systems: Reviewed and Negative - Past Medical History Pertinent Past Medical History: Yes Neurological History: No Pertinent History ENT History: No Pertinent History Cardiac History: Hypertension Respiratory History: Pulmonary Embolism Endocrine Medical History: Diabetes Type II Musculoskeletal History: No Pertinent History GI Medical History: No Pertinent History History: No Pertinent History Psycho-Social History: Anxiety, Depression Female Reproductive Disorders: Other Other Medical History: SVT, BLOOD CLOTS, blood clots , ovarian cysts - Past Surgical History Past Surgical History: Yes Neuro Surgical History: No Pertinent History Cardiac: Other Respiratory: No Pertinent History Gastrointestinal: Cholecystectomy Genitourinary: No Pertinent History Female Surgical History: Hysterectomy Other Surgical History: ablation x3, IVC filter placement, - Social History Smoking Status: Never smoker Exposure to second hand smoke: No Drug Use: none Patient Lives Alone: Yes - Nursing Vital Signs Nursing Vital Signs: Initial Vital Signs Temperature 97.3 F 10/01/19 21:00 Pulse Rate 100 H 10/01/19 21:00 Respiratory Rate 16 10/01/19 21:00 Blood Pressure 156/83 10/01/19 21:00 O2 Sat by Pulse Oximetry 100 10/01/19 21:00 Pain Scale Pain Intensity 0 - Physical Exam General Appearance: no apparent distress, alert, anxiety, obese Eye Exam: PERRL/EOMI, eyes nml inspection Ears, Nose, Throat Exam: normal ENT inspection, moist mucous membranes Neck Exam: normal inspection, non-tender, supple, full range of motion Respiratory Exam: normal breath sounds, lungs clear, airway intact, No chest tenderness, No respiratory distress Cardiovascular Exam: regular rate/rhythm, normal heart sounds, normal peripheral pulses Gastrointestinal/Abdomen Exam: soft, normal bowel sounds, No tenderness Pelvic Exam: not done Rectal Exam: not done Back Exam: normal inspection, normal range of motion, CVA tenderness Extremity Exam: normal inspection, normal range of motion, pelvis stable Neurologic Exam: alert, oriented x 3, cooperative, metal trim erector II-XII nml as tested, normal mood/affect, nml cerebellar function, nml station & gait (Patient walked in from the emergency room waiting area to her room without any difficulties.), sensation nml Skin Exam: normal color, warm, dry Lymphatic Exam: adenopathy SpO2 Interpretation: normal O2 Delivery: Room Air - Course Nursing assessment & vital signs reviewed: Yes Ordered Tests: Active Orders 24 hr Category Date Time Status Accucheck STAT Care 10/01/19 22:11 Active Platemaker STAT Care 10/01/19 22:12 Active IV Insertion STAT Care 10/01/19 22:11 Active Isolation, Initiate & Maintain Q4H Care 10/01/19 21:11 Active Pulse Oximetry (ED) STAT Care 10/01/19 22:11 Active CBC W DIFF Stat Lab 10/01/19 22:43 Completed CMP Stat Lab 10/01/19 22:43 Completed UA W/RFX UR CULTURE Stat Lab 10/01/19 22:58 Completed Transfer Order Routine Transfer 10/02/19 Ordered Medication Summary Generic Name Dose Route Start Last Admin Trade Name Freq PRN Reason Stop Dose Admin Dextrose/Sodium Chloride 1,000 mls @ 100 mls/hr 10/01/19 23:30 10/01/19 23:38 Dextrose 5%-Ns Iv Solution 1000 Ml IV 10/31/19 23:29 100 mls/hr .Q10H HARINDER Administration Discontinued Medications Generic Name Dose Route Start Last Admin Trade Name Edward PRN Reason Stop Dose Admin Dextrose 25 ml 10/01/19 22:11 10/01/19 22:20 D50w 50 Ml Abboject IV 10/01/19 22:12 25 ml STAT ONE Administration Dextrose Confirm 10/01/19 22:19 D50w 50 Ml Abboject Administered 10/01/19 22:20 Dose 50 ml IV .STK-MED ONE Dextrose Confirm 10/01/19 23:17 D50w 50 Ml Abboject Administered 10/01/19 23:18 Dose 50 ml IV .STK-MED ONE Dextrose 50 ml 10/01/19 23:26 10/01/19 23:38 D50w 50 Ml Abboject IV 10/01/19 23:27 50 ml STAT ONE Administration Diphenhydramine HCl 50 mg 10/01/19 23:38 10/01/19 23:47 Benadryl 50 Mg/Ml IV 10/01/19 23:39 50 mg STAT ONE Administration Diphenhydramine HCl Confirm 10/01/19 23:46 Benadryl 50 Mg/Ml Administered 10/01/19 23:47 Dose 50 mg .ROUTE .STK-MED ONE Potassium Chloride 20 meq 10/02/19 00:04 10/02/19 00:15 Klor Con 10 Meq PO 10/02/19 00:05 Not Given STAT ONE Potassium Chloride Confirm 10/02/19 00:11 Klor Con 10 Meq Administered 10/02/19 00:12 Dose 20 meq PO .STK-MED ONE Prochlorperazine Edisylate 10 mg 10/01/19 23:37 10/01/19 23:47 Compazine 10 Mg/2 Ml IV 10/01/19 23:38 10 mg STAT ONE Administration Prochlorperazine Edisylate Confirm 10/01/19 23:46 Compazine 10 Mg/2 Ml Administered 10/01/19 23:47 Dose 10 mg .ROUTE .STK-MED ONE Lab/Rad Data: Laboratory Result Diagrams 10/01/19 22:43 10/01/19 22:43 Laboratory Results 10/01/19 10/01/19 10/01/19 Range/Units 22:58 22:43 22:43 WBC 18.0 H (4.0-10.5) K/mm3 RBC 4.57 (4.1-5.4) M/mm3 Hgb 12.0 (12.0-16.0) gm/dl Hct 37.2 (35-47) % MCV 81.4 (78-100) fl MCH 26.3 (26-32) pg MCHC 32.3 (32-36) g/dl RDW 15.5 H (11.5-14.0) % Plt Count 308 (150-450) K/mm3 MPV 10.5 (7.5-11.0) fl Gran % 89.3 H (36.0-66.0) % Eos # (Auto) 0.08 (0-0.5) Absolute Lymphs (auto) 1.07 (1.0-4.6) Absolute Monos (auto) 0.78 (0.0-1.3) Lymphocytes % 5.9 L (24.0-44.0) % Monocytes % 4.3 (0.0-12.0) % Eosinophils % 0.4 (0.00-5.0) % Basophils % 0.1 (0.0-0.4) % Absolute Granulocytes 16.10 H (1.4-6.9) Basophils # 0.01 (0-0.4) Sodium 140 (137-145) mmol/L Potassium 3.2 L (3.5-5.1) mmol/L Chloride 104 (98-107) mmol/L Carbon Dioxide 26 (22-30) mmol/L Anion Gap 14.0 (5-15) MEQ/L BUN 13 (7-17) mg/dL Creatinine 0.66 (0.52-1.04) mg/dL Estimated GFR > 60.0 ML/MIN Glucose 85 (74-106) mg/dL Calcium 9.7 (8.4-10.2) mg/dL Total Bilirubin 0.30 (0.2-1.3) mg/dL AST 21 (14-36) U/L ALT 19 (0-35) U/L Alkaline Phosphatase 119 (38-126) U/L Serum Total Protein 7.6 (6.3-8.2) g/dL Albumin 4.5 (3.5-5.0) g/dL Urine Color STRAW (YELLOW) Urine Appearance CLEAR (CLEAR) Urine pH 6.0 (5-6) Ur Specific Apison 1.005 (1.005-1.025) Urine Protein NEGATIVE (Negative) Urine Ketones NEGATIVE (NEGATIVE) Urine Blood NEGATIVE (0-5) Robby/ul Urine Nitrite NEGATIVE (NEGATIVE) Urine Bilirubin NEGATIVE (NEGATIVE) Urine Urobilinogen NEGATIVE (0-1) mg/dL Ur Leukocyte Esterase NEGATIVE (NEGATIVE) Urine WBC (Auto) NONE (0-5) /HPF Urine RBC (Auto) NONE (0-2) /HPF U Epithel Cells (Auto) NONE (FEW) /HPF Urine Bacteria (Auto) NONE SEEN (NEGATIVE) /HPF Urine Mucus (Auto) SLIGHT (NEGATIVE) /HPF Urine Culture Reflexed NO (NO) Urine Glucose >=500 (NEGATIVE) mg/dL - Progress Progress: improved Progress Note: 10/02/19 00:43 Medical decision making: This patient presented with hypoglycemia. It was symptomatic. Although improved, her blood sugar still remains in the low to low normal range. Patient did take her long-acting medication. This may be present for several hours. I spoke with Dr. Small, the hospitalist on-call for the hospital. I reviewed the patient history, condition and laboratory results. We both agree that the patient be best served by bringing patient into the hospital in the place of observation status. We will continue the dextrose as well as frequent Accu-Cheks and oral intake. Counseled pt/family regarding: lab results, diagnosis - Departure Departure Disposition: Observation Clinical Impression: Hypoglycemia Condition: Stable Critical Care Time: Yes Critical Care Time(excluding separately billable procedures): Critical 30-74 mins Referrals: PEDRO WEAVER MD [Primary Care Provider] -
[2019-10-01] MEDS ORDERED: D50W 50 ml Abboject IV ONE ×4 (22:11→23:26)
[2019-10-01 22:46] LABS: BASOPHIL % 0.1 % (0.0-0.4); Basophil (Absolute #) 0.01 (0-0.4); Eosinophil % 0.4 % (0.00-5.0); Eosinophil (Absolute #) 0.08 (0-0.5); Hematocrit 37.2 % (35-47); Lymphocyte (Absolute #) 1.07 (1.0-4.6); Lymphocytes % 5.9 % (24.0-44.0); Mean Cell Volume 81.4 fl (78-100); Mean Corpuscular Hemoglobin 26.3 pg (26-32); Mean Corpuscular Hgb Concent. 32.3 g/dl (32-36); Mean Platelet Volume 10.5 fl (7.5-11.0); Monocyte (Absolute #) 0.78 (0.0-1.3); Monocytes % 4.3 % (0.0-12.0); Neutrophil % 89.3 % (36.0-66.0); Platelet Count 308 K/mm3 (150-450); Red Blood Count 4.57 M/mm3 (4.1-5.4); Red Cell Distribution Width 15.5 % (11.5-14.0)
[2019-10-01 23:04] LABS: Appearance CLEAR (CLEAR); Bilirubin NEGATIVE (NEGATIVE); Blood NEGATIVE Ery/ul (0-5); Glucose >=500 mg/dL (NEGATIVE); Ketones NEGATIVE (NEGATIVE); Leukocyte Esterase NEGATIVE (NEGATIVE); Mucus SLIGHT /HPF (NEGATIVE); Nitrite NEGATIVE (NEGATIVE); Protein,Urine Dip NEGATIVE (Negative); Specific Gravity 1.005 (1.005-1.025); Urobilinogen NEGATIVE mg/dL (0-1)
[2019-10-01 23:06] LABS: ALBUMIN 4.5 g/dL (3.5-5.0); ALKALINE PHOSPHATASE 119 U/L (38-126); BLOOD UREA NITROGEN 13 mg/dL (7-17); CHLORIDE 104 mmol/L (98-107); Calcium 9.7 mg/dL (8.4-10.2); Carbon Dioxide 26 mmol/L (22-30); Creatinine 1 0.66 mg/dL (0.52-1.04); Glucose 85 mg/dL (74-106); Potassium 3.2 mmol/L (3.5-5.1); SGOT/AST 21 U/L (14-36); SGPT/ALT 19 U/L (0-35); SODIUM 140 mmol/L (137-145); Total Protein 7.6 g/dL (6.3-8.2)
[2019-10-01 23:10] LABS: Bacteria NONE SEEN /HPF (NEGATIVE)
[2019-10-01] MEDS ORDERED: Dextrose 5%-NS IV Solution 1000 ML 1,000 ML IV SCH (23:30)
[2019-10-01] MEDS ORDERED: Dextrose 5%-NS IV Solution 1000 ML 1,000 ML IV ONE (23:35)
[2019-10-01] MEDS ORDERED: Compazine 10 MG/2 ML IV ONE (23:37)
[2019-10-01] MEDS ORDERED: BENADRYL 50 MG/ML IV ONE (23:38)
[2019-10-01] MEDS ORDERED: BENADRYL 50 MG/ML ONE (23:46)
[2019-10-01] MEDS ORDERED: Compazine 10 MG/2 ML ONE (23:46)
[2019-10-02] MEDS ORDERED: Klor Con 10 MEQ PO ONE ×2 (00:04→00:11)
[2019-10-02] MEDS ORDERED: DEXTROSE 10% 250 ML 250 ML IV SCH (01:00)
[2019-10-02] MEDS ORDERED: D50W 50 ml Abboject IV ONE ×2 (01:02→01:07)
[2019-10-02] MEDS ORDERED: DEXTROSE 10% 250 ML 250 ML IV ONE (01:12)
[2019-10-02] MEDS ORDERED: Zofran 4 MG/2 ML VIAL IV PRN (01:23)
[2019-10-02] MEDS ORDERED: TYLENOL 325 MG PO PRN (01:23)
[2019-10-02] MEDS: DEXTROSE 5% -NACL 0.9% 1000 ML + KCl 20 MEQ 1,000 ML IV SCH ×3 (02:26→18:30)
[2019-10-02 05:20] LABS: Absolute Neutrophil Ct (ANC) 9.04 (1.4-6.9); BASOPHIL % 0.2 % (0.0-0.4); Basophil (Absolute #) 0.02 (0-0.4); Eosinophil % 1.1 % (0.00-5.0); Eosinophil (Absolute #) 0.13 (0-0.5); Hematocrit 35.3 % (35-47); Hemoglobin 11.2 gm/dl (12.0-16.0); Lymphocyte (Absolute #) 1.89 (1.0-4.6); Lymphocytes % 15.8 % (24.0-44.0); Mean Cell Volume 81.7 fl (78-100); Mean Corpuscular Hemoglobin 25.9 pg (26-32); Mean Corpuscular Hgb Concent. 31.7 g/dl (32-36); Mean Platelet Volume 10.7 fl (7.5-11.0); Monocytes % 7.5 % (0.0-12.0); Neutrophil % 75.4 % (36.0-66.0); Platelet Count 254 K/mm3 (150-450); Red Blood Count 4.32 M/mm3 (4.1-5.4); Red Cell Distribution Width 15.5 % (11.5-14.0)
[2019-10-02 05:52] LABS: ALBUMIN 3.8 g/dL (3.5-5.0); ALKALINE PHOSPHATASE 104 U/L (38-126); ANION GAP 12.4 MEQ/L (5-15); BLOOD UREA NITROGEN 12 mg/dL (7-17); CHLORIDE 106 mmol/L (98-107); Calcium 9.2 mg/dL (8.4-10.2); Carbon Dioxide 23 mmol/L (22-30); Creatinine 1 0.56 mg/dL (0.52-1.04); Potassium 3.7 mmol/L (3.5-5.1); SGOT/AST 20 U/L (14-36); SGPT/ALT 16 U/L (0-35); SODIUM 138 mmol/L (137-145); Total Protein 6.4 g/dL (6.3-8.2)
[2019-10-02 06:14] LABS: Glucose 47 mg/dL (74-106)
[2019-10-02] MEDS ORDERED: GlucaGen 1 MG IM PRN (07:18)
[2019-10-02] MEDS ORDERED: Glutose 15 GM ORAL GEL PO PRN (07:18)
[2019-10-02] MEDS: D50W 50 ml Abboject IV PRN (07:25)
[2019-10-02] MEDS ORDERED: ZOFRAN ODT 4 MG PO PRN (08:33)
[2019-10-02] MEDS ORDERED: MEDICATION INTERVENTION MC SCH ×2 (08:45→16:30)
[2019-10-02] MEDS ORDERED: SYNTHROID 50 MCG PO SCH (09:00)
[2019-10-02] MEDS: Cymbalta 30 MG Capsule PO SCH (09:23)
[2019-10-02] MEDS: lamICTAL 100MG TABLET PO SCH ×2 (09:23→22:14)
[2019-10-02] MEDS ORDERED: NON-FORMULARY ITEM (Cyclosporine [Restasis] 1 DROP) SCH (10:00)
[2019-10-02] MEDS ORDERED: Catapres 0.1 MG PO SCH ×2 (10:00→22:00)
[2019-10-02] MEDS ORDERED: BENADRYL 50 MG/ML IV ONE (13:02)
[2019-10-02] MEDS ORDERED: Compazine 10 MG/2 ML IV ONE (13:02)
[2019-10-02] MEDS: MORPHINE SULFATE 2 MG INJ IV PRN ×2 (18:07→23:40)
[2019-10-02] MEDS: ZOCOR 20MG PO SCH (22:13)
[2019-10-02] MEDS: XARELTO 10 MG TABLET PO SCH (22:14)
[2019-10-03] MEDS: BENADRYL 50 MG/ML IV PRN ×4 (00:24→20:34)
[2019-10-03] MEDS: D50W 50 ml Abboject IV PRN ×3 (02:44→08:00)
[2019-10-03] MEDS: DEXTROSE 5% -NACL 0.9% 1000 ML + KCl 20 MEQ 1,000 ML IV SCH (04:03)
[2019-10-03] MEDS: MORPHINE SULFATE 2 MG INJ IV PRN ×2 (04:04→07:55)
[2019-10-03] MEDS ORDERED: SYNTHROID 100 MCG PO SCH (06:00)
[2019-10-03] MEDS: Compazine 10 MG/2 ML IV PRN ×3 (06:46→20:34)
[2019-10-03] MEDS: Cymbalta 30 MG Capsule PO SCH (09:02)
[2019-10-03] MEDS: lamICTAL 100MG TABLET PO SCH ×2 (09:03→22:24)
--- NOTE | 2019-10-03 09:51 | HP ---
HISTORY OF PRESENT ILLNESS: This is a 44 year old patient who presented to the emergency department complaining of hypoglycemia. She states this happens fairly frequently to her. She tells me she has been hospitalized for this three times in the past year and that it usually takes a couple of days for her blood sugars to stabilize. She reports she sees an intermodal owner operator truck driver, Dr. Rodrigues, in [place] and has an upcoming appointment with her 10/24/2019. The patient states that she was not eating well, said that she did not take her short-acting insulin which is NovoLog 15 units with lunch and dinner and 13 units with breakfast. She did take her Lantus 50 units twice a day. The patient states that usually her intermodal owner operator truck driver does not want her to decrease her Lantus because she does have a history of going into DKA even though she is a type 2 diabetic. REVIEW OF SYSTEMS: No fevers. No cough. No rhinorrhea. She does have a migraine headache which she states comes when she has a lower blood sugar and the Compazine and Benadryl usually helps. She states Compazine gives her hives but the Benadryl helps with that. She has never had any trouble breathing with this combination. She reports she had this in the emergency department last night and it helped then. MEDICATIONS: Please see the home medication reconciliation form which I have reviewed. ALLERGIES: PLEASE SEE THE LIST IN HER CHART. PAST MEDICAL HISTORY: Bipolar disease, hyperlipidemia, pulmonary embolism, diabetes mellitus type 2, migraine headaches. PAST SURGICAL HISTORY: . Heart ablation. Cholecystectomy. Hysterectomy. SOCIAL HISTORY: She is and lives with her and children. She denies any tobacco or alcohol use. FAMILY HISTORY: She reports her mother of coronary artery disease at 49 years of age. Her father is unknown. PHYSICAL EXAMINATION: VITAL SIGNS: Temperature current 99F, temperature max 99F, heart rate 95, respiratory rate 16, blood pressure 139/69, weight 98.7 kg. Oxygen saturation 98% on room air. GENERAL: The patient is a pleasant talkative lady lying in bed in no acute distress. CVS: She has a regular rate and rhythm. No murmurs, gallops or rubs. CHEST: Clear to auscultation bilaterally. No crackles or wheezes. ABDOMEN: Soft, nontender, nondistended with normal bowel sounds. EXTREMITIES: No clubbing, cyanosis or edema. SKIN: Warm, dry and intact. ASSESSMENT AND PLAN: 1) DIABETES MELLITUS TYPE 2 WITH HYPOGLYCEMIA: Will continue to monitor her blood sugars and treating appropriately. Currently all of her insulin is being held which will need to be restarted slowly. Her most recent Accu-Chek around noon was 86. 2) MIGRAINE HEADACHE: Will continue with Compazine and Benadryl as needed. The patient reports these headaches usually only happen with hypoglycemia so she is not on any controller medication. 3) HISTORY OF PULMONARY EMBOLISM: Will continue with generic of Xarelto 20 mg p.o. q.h.s. 4) HYPERLIPIDEMIA: Continue with Simvastatin which is a replacement for her usual statin.
[2019-10-03] MEDS ORDERED: CARIPRAZINE HCL 4.5 MG PO SCH (10:00)
--- NOTE | 2019-10-03 10:07 | PCM.NOTE ---
Date and Time: 10/03/19 1002 Subjective Assessment: Patient reports she had a low blood glucose again last night. Nurses notes states she didn't want to eat anything so she got 1/2 amp of D50. Patient reports her headache is a little better but comes and goes. Patient reports when she has these episodes of low blood glucoses that it can take days of being off insulin for her blood glucoses to be normal. She reports when she restarts her blood glucoses she does this slowly. - Review of Systems Constitutional: No Symptoms Respiratory: No Symptoms Cardiac: No Symptoms Abdominal/Gastrointestinal: No Symptoms Genitourinary Symptoms: No Symptoms Musculoskeletal: No Symptoms Skin: No Symptoms Objective Exam General Appearance: no apparent distress, obese Neurologic Exam: alert, cooperative, normal mood/affect Skin Exam: normal color, warm, dry, No rash Respiratory Exam: normal breath sounds, lungs clear, No crackles/rales, No rhonchi, No wheezing Cardiovascular Exam: regular rate/rhythm, normal heart sounds, No murmur, No friction rub, No gallop Gastrointestinal/Abdomen Exam: soft, normal bowel sounds, No tenderness, No distention, No mass OBJECTIVE DATA Vital Signs: Vital Signs - 24 hr Temp Pulse Resp BP Pulse Ox 10/03/19 08:00 98.5 F 84 18 122/60 97 10/03/19 04:00 98.3 F 90 20 147/73 98 10/03/19 00:00 98.2 F 85 19 116/56 98 10/02/19 20:00 98.2 F 89 18 121/60 96 10/02/19 16:00 98.6 F 90 16 124/60 98 10/02/19 12:00 99.0 F 95 H 16 139/69 98 Pain Assessment - Last Documented Pain Intensity 6 Pain Scale Used 0-10 Pain Scale Intake and Output: Intake & Output 10/01/19 10/02/19 10/03/19 10/04/19 06:59 06:59 06:59 06:59 Intake Total 4078 240 Balance 4078 240 Weight 98.7 kg 102.9 kg Lab Results: Accuchecks Date 10/03/19 Date 10/02/19 Date 10/02/19 Date 10/02/19 Time 07:54 Time 16:37 Time 11:30 Time 11:51 Accucheck Value: 55 Accucheck Value: 101 Accucheck Value: 84 Accucheck Value: 86 Accucheck Value: 86 Lab Results-Last 24 Hours 10/02/19 10/03/19 Range/Units 05:00 06:10 Glucose 72 L (74-106) mg/dL Hemoglobin A1c 8.89 H (4.5-6.0) % Assessment/Plan (1) Hypoglycemia Current Visit: Yes Status: Chronic Assessment & Plan: Continue to check accu checks. She has not had any insulin since coming here. Trying to call her Index Clerk at , Dr. Rodrigues, to touch base with her. Code(s): E16.2 - HYPOGLYCEMIA, UNSPECIFIED (2) Diabetes type 2, controlled Current Visit: Yes Status: Acute Qualifiers: Diabetes mellitus alf insulin use: with terminal gauger use Diabetes mellitus complication status: without complication Qualified Code(s): E11.9 - Type 2 diabetes mellitus without complications; Z79.4 - long term (current) use of insulin Assessment & Plan: Currently off insulin. Code(s): E11.9 - TYPE 2 DIABETES MELLITUS WITHOUT COMPLICATIONS (3) Migraine Current Visit: Yes Status: Acute Assessment & Plan: Currently controlled. Code(s): G43.909 - MIGRAINE, UNSP, NOT INTRACTABLE, WITHOUT STATUS MIGRAINOSUS
[2019-10-03] MEDS: ZOCOR 20MG PO SCH (22:24)
[2019-10-03] MEDS: XARELTO 10 MG TABLET PO SCH (22:24)
[2019-10-04] MEDS: D50W 50 ml Abboject IV PRN ×2 (00:59→06:14)
[2019-10-04] MEDS: Compazine 10 MG/2 ML IV PRN ×2 (03:04→10:42)
[2019-10-04] MEDS: BENADRYL 50 MG/ML IV PRN ×2 (03:08→10:42)
[2019-10-04] MEDS ORDERED: SYNTHROID 50 MCG PO SCH (06:00)
[2019-10-04] MEDS: Cymbalta 30 MG Capsule PO SCH (10:41)
[2019-10-04] MEDS: lamICTAL 100MG TABLET PO SCH (10:41)
--- NOTE | 2019-10-04 11:05 | PCM.NOTE ---
Date and Time: 10/04/19 1101 Subjective Assessment: Patient had another low blood glucose to 46 overnight requiring treatment with IV dextrose. Patient reports she was here in town vising a cousin, April. She states her needs their car back and he is going to be mad if she can't go home. She is asking to be discharged. Discussed with patient that her Toll Mechanic is concerned that she is giving herself too much long acting insulin on purpose and that she had said patient was also hospitalized at [facility] 2 weeks ago for this same problem. patient denies giving herself too much insulin and denies SI. I explained to patient that we don't want something bad to happen to her. Objective Exam General Appearance: no apparent distress Neurologic Exam: alert, cooperative Skin Exam: normal color, warm, dry Respiratory Exam: normal breath sounds, No crackles/rales, No rhonchi, No wheezing Cardiovascular Exam: regular rate/rhythm, normal heart sounds, No murmur, No friction rub, No gallop Gastrointestinal/Abdomen Exam: soft, normal bowel sounds, No tenderness, No distention, No mass Extremity Exam: other (no c/c/e) OBJECTIVE DATA Vital Signs: Vital Signs - 24 hr Temp Pulse Resp BP Pulse Ox 10/04/19 08:00 98.1 F 67 14 116/60 97 10/04/19 04:11 98.3 F 82 18 137/62 99 10/03/19 23:53 98.4 F 72 16 115/57 98 10/03/19 19:53 98.3 F 80 17 134/64 99 10/03/19 15:21 98.2 F 80 18 113/57 97 10/03/19 12:00 98.2 F 80 18 113/57 97 Pain Assessment - Last Documented Pain Intensity 8 Pain Scale Used 0-10 Pain Scale Intake and Output: Intake & Output 10/02/19 10/03/19 10/04/19 10/05/19 06:59 06:59 06:59 06:59 Intake Total 4078 1800 360 Output Total 1500 Balance 4078 300 360 Weight 98.7 kg 102.9 kg 102.8 kg Lab Results: Accuchecks Date 10/03/19 Date 10/03/19 Date 10/03/19 Time 16:40 Time 12:30 Time 12:53 Accucheck Value: 100 Accucheck Value: 110 Accucheck Value: 98 Accucheck Value: 76 Accucheck Value: 56 Lab Results-Last 24 Hours 10/04/19 Range/Units 01:10 Glucose 53 L (74-106) mg/dL Multi-Disciplinary Progress Notes: Multi-Disciplinary Progress Notes 10/03/19 12:40 Case Management Note by Briseyda Max PATIENT CONTINUES TO DENY ANY NEEDS AT DC AT THIS TIME Initialized on 10/03/19 12:40 - END OF NOTE Assessment/Plan (1) Hypoglycemia Current Visit: Yes Status: Chronic Assessment & Plan: Continued hypoglycemia. I am not comfortable with discharging her to home at this time as she required IV dextrose overnight for low blood glucose. Concern for intentional over medication as described in note yesterday and today. Code(s): E16.2 - HYPOGLYCEMIA, UNSPECIFIED (2) Diabetes type 2, controlled Current Visit: Yes Status: Acute Qualifiers: Diabetes mellitus senior living insulin use: with rn long term care use Diabetes mellitus complication status: without complication Qualified Code(s): E11.9 - Type 2 diabetes mellitus without complications; Z79.4 - long term (current) use of insulin Assessment & Plan: She plans to follow up with her farm machine tender as an outpatient. Code(s): E11.9 - TYPE 2 DIABETES MELLITUS WITHOUT COMPLICATIONS (3) Migraine Current Visit: Yes Status: Acute Assessment & Plan: IV morphine discontinued yesterday. Code(s): G43.909 - MIGRAINE, UNSP, NOT INTRACTABLE, WITHOUT STATUS MIGRAINOSUS (4) Borderline personality disorder in adult Current Visit: Yes Status: Acute Assessment & Plan: Patient sees a psychiatry provider as an outpatient. Code(s): F60.3 - BORDERLINE PERSONALITY DISORDER
[2019-10-04 13:28] VITALS: BP 125/60; PULSE 86; O2SAT 98
--- NOTE | 2019-10-07 17:23 | DS ---
DISCHARGE DIAGNOSIS: 1. HYPOGLYCEMIA. 2. DIABETES MELLITUS TYPE 2, CONTROLLED. 3. MIGRAINE. 4. BORDERLINE PERSONALITY DISORDER. DISCHARGE PHYSICAL EXAM ON THE DAY OF HER DISCHARGE: VITALS: Temperature current 98.1, temperature maximum 98.4, heart rate 67-82, respiratory rate 14-18, BP 113-137/57-64, O2 saturation 97-99% on room air. GENERAL: The patient was lying in bed in no acute distress. She is alert and oriented. CVS: Regular rate and rhythm. CHEST: Lungs were clear to auscultation bilaterally. ABDOMEN: Soft, nontender, nondistended. EXTREMITIES: No clubbing, cyanosis, or edema. SKIN: Warm, dry, and intact. HOSPITAL COURSE: 1. Hypoglycemia. The patient left AMA as I advised her to stay for another night. She had an episode of hypoglycemia to 47 in the early AM that required treatment with IV dextrose. The patient had told me that she thought her was going to be mad at her because she needed to return the car and so she told the nurse later in the afternoon that she was going to be leaving AMA. I had already notified her dynamite packing machine feeder that she had been at our hospital and the patient told me she had an endocrinology appointment scheduled later this month. When I spoke with her dynamite packing machine feeder, she told me the patient had a history of injecting large amounts of long-acting insulin that would then require her to have a hospitalization and that she did this on purpose to try to get away from stressful situations at home. She said that at they had told her that they would commit her if she continued to do this and so the patient now goes outside of the [facility] system for treatment and was last seen in [place] 2 weeks ago they reported. 2. Diabetes mellitus type 2. She continues to follow with her dynamite packing machine feeder. 3. Migraine. She was getting Compazine and Benadryl while she was here and morphine for a short time, but that was discontinued before discharge. 4. Borderline personality disorder. She sees a psychiatry provider as an outpatient. DISPOSITION: The patient left AMA.
== END 2019-10-04 13:25 | disposition left against medical advice (07) | DRG 639 ==
LOC: ED 20:50 → MED SURG 10-02 01:13 → OBSVTOIN 10-02 15:53
PROVIDERS: ADMIT Internal Medicine; ATTEND Internal Medicine
DX: E11.649 Type 2 diabetes mellitus with hypoglycemia without coma (principal); G43.909 Migraine, unspecified, not intractable, without status migrainosus; E78.5 Hyperlipidemia, unspecified; F60.3 Borderline personality disorder; Z86.711 Personal history of pulmonary embolism; Z79.01 Long term (current) use of anticoagulants; Z79.899 Other long term (current) drug therapy
CPT/HCPCS: 36000; 36415; 80053; 81001; 82947; 82962; 83036; 85025; 93041; 94760; 96365; 96366; 96374; 96375; 96376; 99285; 99291; J1200; J2270; A9270-GY